=== PATIENT | male | born 1935 | race Caucasian/White ===

== ENCOUNTER → 2017-09-26 06:31 | Outpatient (CLI) | payer MEDICARE, SELFPAY ==
[2017-09-24 08:42] LABS: AST(SGOT) 31 U/L (15-37); Alanine Aminotransfer ALT/SGPT 40 U/L (16-61); Albumin, Serum 3.8 g/dL (3.2-5.0); Alkaline Phosphatase 52 U/L (45-117); Anion Gap 8 (5-15); BUN 21 mg/dL (7-18); Calcium,Total 8.7 mg/dL (8.5-10.1); Chloride 103 mmol/L (98-107); Cholesterol 139 mg/dL (200); EST Glomerular Filtration Rate 76 mL/min (>60); Est Glom Filt Rate - Afr Amer 92 mL/min (>60); Globulin 3.2 g/dL (2.2-4.2); Glucose 100 mg/dL (74-106); High Density Lipoprotein 54 mg/dL; Sodium Level 142 mmol/L (136-145); Triglycerides 133 mg/dL; Very Low Density Lipoprotein 27 mg/dL (5-40)
--- NOTE | 2017-09-26 06:31 | ECHOD_ITS ---
Reason For Study: Arrhythmia Procedure This was a 2D Doppler, Color Flow transthoracic echocardiogram. Exam performed in department. Left Ventricle Normal LV size. Moderate concentric left ventricular hypertrophy. Left ventricular systolic function is normal. The estimated ejection fraction is 60 %. Transmitral diastolic flow velocities suggest moderate (stage 2) diastolic dysfunction (pseudonormal pattern). No regional wall motion abnormalities noted. Right Ventricle Normal RV size. Normal systolic function. Atria The left atrium is moderately enlarged. The right atrium is moderately enlarged. Mitral Valve There is mild mitral annular calcification. Mild (1+) eccentric mitral valve insufficiency. Tricuspid Valve Normal tricuspid valve. Mild (1+) tricuspid valve insufficiency. Pulmonary artery systolic pressure is 39 mmHg. Aortic Valve Trisinus/trileaflet aortic valve. Mild focal aortic valve calcification. Mild (1+) eccentric aortic valve insufficiency. Pulmonic Valve Normal pulmonic valve. Great Vessels Normal aortic root. The pulmonary artery is normal size. Normal inferior vena cava. Pericardium/Pleural No pericardial effusion. MMode/2D Measurements & Calculations LVIDd: 5.2 cm IVSd: 1.5 cm LVOT diam: 2.0 cm LVIDs: 3.1 cm LVPWd: 1.3 cm LVOT area: 3.1 cm2 RVDd: 3.9 cm FS: 40.8 % Ao root diam: 4.0 cm LAV(MOD-bp): 104.2 ml LA A4 area: 28.3 cm2 LA dimension: 4.7 cm LAV(MOD-bp) Indexed: 48.4 ml/m2 LAV(MOD-sp2): 116.8 ml LAV(MOD-sp4): 92.1 ml RA A4 area: 29.6 cm2 Time Measurements MV dec time: 0.27 sec Doppler Measurements & Calculations MV E max camden: 83.8 cm/sec Lat Peak E' Camden: 5.7 cm/sec Med Peak E' Camden: 6.9 cm/sec MV A max camden: 51.7 cm/sec E/E' lat: 14.6 E/E' med: 12.1 MV E/A: 1.6 MV V2 max: 124.2 cm/sec MV P1/2t max camden: 122.3 cm/sec Ao V2 max: 228.6 cm/sec MV max P.2 mmHg MV P1/2t: 168.8 msec Ao max P.9 mmHg MV V2 mean: 49.3 cm/sec MV dec slope: 212.2 cm/sec2 Ao V2 mean: 129.1 cm/sec MV mean P.2 mmHg MVA(P1/2t): 1.3 cm2 Ao mean P.0 mmHg MV V2 VTI: 56.0 cm Ao V2 VTI: 51.4 cm MVA(VTI): 1.6 cm2 MICHAEL(I,D): 1.7 cm2 MICHAEL(V,D): 1.5 cm2 AI max camden: 362.4 cm/sec LV V1 max: 112.2 cm/sec SV(LVOT): 88.0 ml AI max P.5 mmHg LV V1 max P.0 mmHg AI dec slope: 105.8 cm/sec2 LV V1 mean P.4 mmHg AI P1/2t: 1003 msec LV V1 mean: 71.4 cm/sec LV V1 VTI: 28.8 cm PA V2 max: 75.1 cm/sec TR max camden: 292.3 cm/sec TR max P.2 mmHg Interpretation Summary Normal LV size. Moderate concentric left ventricular hypertrophy. Left ventricular systolic function is normal. The estimated ejection fraction is 60 %. Transmitral diastolic flow velocities suggest moderate (stage 2) diastolic dysfunction (pseudonormal pattern). Pulmonary artery systolic pressure is 39 mmHg. Ordering Physician: Dionisio Hutchison Referring Physician: Dionisio Hutchison Performed By: Calixto Holly RCS
--- NOTE | 2017-09-26 09:04 | STRESSREP_ITS ---
Stress Test Report Exercise myocardial perfusion stress test. 82-year-old man with a history of symptomatic bradycardia. Stress protocol: Resting EKG demonstrates sinus bradycardia with a rate of 44 bpm normal intervals and noted resting blood pressures 122/78 mmHg. The patient exercised according to regular Manny protocol for a total duration of 9 minutes. The maximum heart rate attained was 131 bpm which was 93% of maximum predicted heart rate the maximum workload was 10.1 metabolic equivalents. At rest there were no ST or T-wave changes noted suggest ischemia peak exercise no ST or T- wave changes were noted suggest ischemia resting blood pressures 122/78 with a peak blood pressure 152/80 mmHg. No clinical angina was noted the test was terminated due to leg fatigue. Myocardial perfusion protocol. 14.6 mCi of technetium 99m sestamibi was injected at rest. The patient exercised according to regular Manny protocol for 9 minutes attaining 93% of maximum predicted heart rate and a workload of 10.1 metabolic equivalents. At peak exercise 44.1 mCi of technetium 99m sestamibi was injected stress images were obtained stress and rest images were reconstructed and compared in the short axis vertical long and horizontal long axis. Gated images were also obtained Perfusion SPECT analysis: Review of the stress images demonstrate normal uptake of tracer noted in all areas of myocardium except for small portion of the anterior apical wall. This is present on the stress and rest images to a similar extent it may represent prior infarct or apical thinning. The latter is more likely. Gated SPECT analysis: The gated ejection fraction is noted to be 59%. Conclusion: Normal exercise myocardial perfusion stress test at a high workload. Preserved ejection fraction. Excellent functional aerobic capacity. Excellent chronotropic response to exercise.
== END ==
PROVIDERS: Family Provider Family Medicine; PCP Family Medicine; Visit Provider Internal Medicine Cardiovascular Disease
DX: I25.10 Atherosclerotic heart disease of native coronary artery without angina pectoris (principal); I10 Essential (primary) hypertension; E78.5 Hyperlipidemia, unspecified; R00.1 Bradycardia, unspecified
CPT/HCPCS: 36415; 78452; 80048; 80061; 80076; 93017; 93306; A9500; A4216

== ENCOUNTER → 2019-09-12 10:37 | Outpatient (CLI) | payer MEDICARE, SELFPAY ==
[2019-09-04 10:27] VITALS: BMI 28.5
== END ==
PROVIDERS: PCP Family Medicine; Referring Provider Internal Medicine Cardiovascular Disease; Visit Provider Internal Medicine Cardiovascular Disease
DX: I48.0 Paroxysmal atrial fibrillation (principal)
CPT/HCPCS: 93225; 93226

== ENCOUNTER → 2021-09-06 | Outpatient (CLI) | payer MEDICARE, SELFPAY ==
[2021-09-06 11:42] LABS: AST(SGOT) 22 U/L (15-37); Alanine Aminotransfer ALT/SGPT 22 U/L (16-61); Albumin, Serum 4.1 g/dL (3.2-5.0); Alkaline Phosphatase 48 U/L (45-117); Cholesterol 170 mg/dL (200); Globulin 3.4 g/dL (2.2-4.2); High Density Lipoprotein 53 mg/dL; Protein, Total 7.5 g/dL (6.4-8.2); Triglycerides 108 mg/dL; Very Low Density Lipoprotein 22 mg/dL (5-40)
== END | disposition home or self-care (01) ==
LOC: LAB 10:06
PROVIDERS: PCP Family Medicine; Referring Provider Internal Medicine Cardiovascular Disease; Visit Provider Internal Medicine Cardiovascular Disease
DX: E78.00 Pure hypercholesterolemia, unspecified (principal)
CPT/HCPCS: 36415; 80061; 80076

== ENCOUNTER → 2022-07-06 | Outpatient (CLI) | payer MEDICARE, SELFPAY | END | disposition home or self-care (01) | LOC: PSN 09:22 | PROVIDERS: PCP Family Medicine; Referring Provider Physician Assistant Medical; Visit Provider Physician Assistant Medical | DX: I48.0 Paroxysmal atrial fibrillation (principal); I10 Essential (primary) hypertension | CPT/HCPCS: 93225; 93226 ==

== ENCOUNTER 2022-09-04 09:02 | Outpatient (RCR) | payer MEDICARE, SELFPAY ==
[2022-08-30 10:40] LABS: Prothrombin Time (Protime)PT. 13.2 SECONDS (11.7-14.9)
[2022-09-04 11:06] LABS: Prothrombin Time (Protime)PT. 22.6 SECONDS (11.7-14.9)
== END 2022-09-04 11:00 | disposition home or self-care (01) ==
LOC: LAB 09:02
PROVIDERS: PCP Family Medicine; Referring Provider Physician Assistant Medical; Visit Provider Physician Assistant Medical
DX: Z79.01 Long term (current) use of anticoagulants (principal); I48.0 Paroxysmal atrial fibrillation
CPT/HCPCS: 36415; 85610

== ENCOUNTER 2022-10-09 09:11 | Outpatient (RCR) | payer MEDICARE, SELFPAY ==
[2022-09-21 12:03] LABS: Prothrombin Time (Protime)PT. 48.4 SECONDS (11.7-14.9)
[2022-09-21 12:43] LABS: International Normalized Ratio 5.1
[2022-09-25 09:52] LABS: Absolute Lymphocyte Count 1.54 X10^3/uL (0.83-4.51); Absolute Neutrophil Count 3.1 X10^3/uL (2.0-7.7); Basophil# 0.05 X10^3/uL; Basophil% 0.9 % (0-1); Eosinophil# 0.36 X10^3/uL; Eosinophils% 6.3 % (0-5); Hematocrit 48.5 % (40-54); Hemoglobin 15.7 g/dL (13.0-16.5); Lymphocyte # 1.54 X10^3/ul (0.83-4.51); Lymphocyte % 27.1 % (19-41); Mean Corp Hgb Conc 32.4 g/dL (32-36); Mean Corpuscular Hgb 29.2 pg (27.0-32.0); Mean Corpuscular Volume 90.1 fL (80-94); Mean Platelet Vol. 10.7 fl (6.2-12.0); Monocyte# 0.59 X10^3/uL; Monocyte% 10.4 % (0-10); NRBC Flagged by Analyzer 0 % (0-5); Neutrophil # 3.12 X10^3/uL (2.7-7.7); Neutrophil % 54.9 % (47-70); Platelet Count 223 K/mm3 (150-450); RBC Distribution Width CV 13.3 % (11.6-14.6); RBC Distribution Width SD 44.5 fl (35.1-43.9); Red Blood Count 5.38 M/mm3 (4.6-6.2); White Blood Count 5.7 K/mm3 (4.4-11.0)
[2022-09-25 09:59] LABS: International Normalized Ratio 1.5; Prothrombin Time (Protime)PT. 18.3 SECONDS (11.7-14.9)
[2022-09-25 10:38] LABS: Anion Gap 5 (5-15); BUN 25 mg/dL (7-18); BUN/Creat Ratio 25.6 RATIO (10-20); Calcium,Total 9.2 mg/dL (8.5-10.1); Chloride 102 mmol/L (98-107); Creatinine, Serum 0.98 mg/dL (0.70-1.30); EST Glomerular Filtration Rate 78 mL/min (>60); Est Glom Filt Rate - Afr Amer 94 mL/min (>60); Glucose 94 mg/dL (74-106); Magnesium 2.3 mg/dL (1.6-2.6); Potassium 3.9 mmol/L (3.5-5.1); Sodium Level 137 mmol/L (136-145); Thyroid Stim Hormone (TSH) 3.86 uIU/mL (0.358-3.74)
[2022-10-02 12:02] LABS: International Normalized Ratio 1.6; Prothrombin Time (Protime)PT. 19.4 SECONDS (11.7-14.9)
[2022-10-09 10:27] LABS: International Normalized Ratio 1.6; Prothrombin Time (Protime)PT. 19.6 SECONDS (11.7-14.9)
== END 2022-10-09 18:00 | disposition home or self-care (01) ==
LOC: LAB 09:11
PROVIDERS: PCP Family Medicine; Referring Provider Physician Assistant Medical; Visit Provider Physician Assistant Medical
DX: Z79.01 Long term (current) use of anticoagulants (principal); I48.0 Paroxysmal atrial fibrillation
CPT/HCPCS: 36415; 80048; 83735; 84443; 85025; 85610

== ENCOUNTER 2022-11-06 09:21 | Outpatient (RCR) | payer MEDICARE, SELFPAY ==
[2022-10-16 09:23] LABS: International Normalized Ratio 1.5; Prothrombin Time (Protime)PT. 18.5 SECONDS (11.7-14.9)
[2022-10-23 11:10] LABS: International Normalized Ratio 2.3; Prothrombin Time (Protime)PT. 25.5 SECONDS (11.7-14.9)
[2022-11-06 10:18] LABS: International Normalized Ratio 3.2; Prothrombin Time (Protime)PT. 33.4 SECONDS (11.7-14.9)
[2022-11-06 10:47] LABS: AST(SGOT) 24 U/L (15-37); Alanine Aminotransfer ALT/SGPT 22 U/L (16-61); Albumin, Serum 3.8 g/dL (3.2-5.0); Alkaline Phosphatase 40 U/L (45-117); Bilirubin, Direct 0.23 mg/dL (0.00-0.30); Cholesterol 188 mg/dL (200); Globulin 3.8 g/dL (2.2-4.2); High Density Lipoprotein 58 mg/dL; Protein, Total 7.6 g/dL (6.4-8.2); Triglycerides 122 mg/dL; Very Low Density Lipoprotein 24 mg/dL (5-40)
== END 2022-11-13 18:00 | disposition home or self-care (01) ==
LOC: LAB 09:21
PROVIDERS: Internal Medicine Cardiovascular Disease; PCP Family Medicine; Referring Provider Physician Assistant Medical; Visit Provider Physician Assistant Medical
DX: Z79.1 Long term (current) use of non-steroidal anti-inflammatories (NSAID) (principal); I48.0 Paroxysmal atrial fibrillation
CPT/HCPCS: 36415; 80061; 80076; 85610

== ENCOUNTER 2022-11-20 08:52 | Outpatient (RCR) | payer MEDICARE, SELFPAY ==
[2022-11-20 09:30] LABS: International Normalized Ratio 3.5; Prothrombin Time (Protime)PT. 35.5 SECONDS (11.7-14.9)
== END 2022-11-20 18:00 | disposition home or self-care (01) ==
LOC: LAB 08:52
PROVIDERS: PCP Family Medicine; Referring Provider Physician Assistant Medical; Visit Provider Physician Assistant Medical
DX: Z79.01 Long term (current) use of anticoagulants (principal); I48.0 Paroxysmal atrial fibrillation
CPT/HCPCS: 36415; 85610

== ENCOUNTER → 2022-11-27 | Outpatient (CLI) | payer MEDICARE, SELFPAY | END | disposition home or self-care (01) | LOC: LAB 13:16 | PROVIDERS: PCP Family Medicine; Referring Provider Urology; Visit Provider Urology | DX: R97.20 Elevated prostate specific antigen [PSA] (principal) | CPT/HCPCS: 36415; 84153 ==

== ENCOUNTER → 2023-01-08 | Outpatient (CLI) | payer MEDICARE, SELFPAY ==
[2023-01-08 11:41] LABS: PSA,Total- Diagnostic 7.86 ng/mL (0.0-4.0)
== END | disposition home or self-care (01) ==
LOC: LAB 09:28
PROVIDERS: PCP Family Medicine; Referring Provider Urology; Visit Provider Urology
DX: R97.20 Elevated prostate specific antigen [PSA] (principal)
CPT/HCPCS: 36415; 84153

== ENCOUNTER → 2023-05-11 | Outpatient (CLI) | payer MEDICARE, SELFPAY ==
--- OUTSIDE RECORDS SUMMARY | 2023-05-11 09:04 | XMS RPT_ITS | CCD ---
Author Name Unknown Address [facility] [address] [place] [address] Organization [facility] Care Team Providers Care Gang Pusher Name Role Phone DARIN MIKE DO Primary Care Physician DARIN MIKE DO Primary Care Unavailable DARIN MIKE DO Attending Unavailable ALEJANDRO PANIAGUA, FRANKLIN Kong Attending Unavail able DARIN MIKE DO Primary Care Unavailable DARIN MIKE DO Attending Unavailable DARIN MIKE DO Primary Care Unavailable DARIN MIKE DO Attending Unavailable DARIN MIKE DO Primary Care Unavailable DARIN MIKE DO Attending Unavailable DARIN MIKE DO Primary Care Unavailable Allergies Allergy Classification Reported Allergen(s) Allergy Type Date of Onset Reaction(s) Facility (6 sources) Niacin; Translations: [niacin] Drug Allergy Abdominal pain [facility] Medications Current Medications Medication Drug Class(es) Dates Sig (Normalized) Sig (Original) amLODIPine 10 mg oral tablet (6 sources) Dihydropyridine Calcium Channel Alondra Start: 01-30-2019 amLODIPine 10 mg oral tablet Dose : 10 mg = 1 tab(s), Oral, qDay, # 30 tab(s), 0 Refill(s) Start Date: 01/30/19 Status: Ordered apixaban 5 mg oral tablet (1 source) Factor Xa Inhibitor Start: 03-15-2023 Eliquis 5 mg oral tablet Dose : 5 mg = 1 tab(s), 0 Refill(s), 94 Start Date: 03/15/23 Status: Ordered aspirin 81 mg delayed release oral tablet (6 sources) Platelet Aggregation Inhibitor, Nonsteroidal Anti-inflammatory Drug Start: 01-30-2019 aspirin 81 mg oral delayed release tablet Dose : 81 mg = 1 tab(s), Oral, qDay, 0 Refill(s) Start Date: 01/30/19 Status: Ordered Problems Problem Classification Problem Date Documented Date Episodic/Chronic Cardiac dysrhythmias (1 source) Paroxysmal atrial fibrillation 03-15-2023 Chronic Disorders of lipid metabolism (6 sources) Hyperlipidemia 01-30-2019 Chronic Essential hypertension (9 sources) Hypertensive disorder; Translations: [Essential hypertension] Onset: 03-15-2023 01-30-2019 Chronic Heart valve disorders (6 sources) Aortic valve disorder 01-30-2019 Chronic Hyperplasia of prostate (6 sources) Benign prostatic hyperplasia 01-30-2019 Chronic Immunizations and screening for infectious disease (5 sources) Viral screening status; Translations: [Encounter for screening for other viral diseases] Episodic Osteoarthritis (6 sources) Arthritis 08-01-2019 Chronic Other nutritional; endocrine; and metabolic disorders (4 sources) Overweight in adulthood with body mass index of 25 or more but less than 30 03-22-2022 Episodic Other screening for suspected conditions (not mental disorders or infectious disease) (1 source) Diabetic monitoring status; Translations: [Encounter for screening for diabetes mellitus] Episodic Other skin disorders (6 sources) Lesion of skin of face 02-09-2021 Episodic Other skin disorders (6 sources) Multiple actinic keratoses 01-30-2019 Episodic Other upper respiratory disease (1 source) Bleeding from nose; Translations: [Epistaxis] Onset: 12-01-2022 Episodic Residual codes; unclassified (6 sources) Needs influenza immunization 02-08-2021 Episodic Residual codes; unclassified (6 sources) Requires vaccination 01-30-2019 Episodic Thyroid disorders (1 source) Hypothyroidism 03-15-2023 Chronic Unclassified (20 sources) Patient encounter status 01-30-2019 Unclassified (4 sources) Never used tobacco 03-22-2022 Unclassified (1 source) Drug therapy finding 03-15-2023 Results Test Name Value Interpretation Reference Range Facil ity Vital Signs Date Time Vital Sign Value Performing Clinician Carlie acharya 12-01-2022 22:43-0400 Diastolic Blood Pressure Non-Invasive 91 1 FRANKLIN ALLEN MD [facility] 12-01-2022 22:43-0400 Heart rate 97 /min FRANKLIN LYREN-SONDLES MD [facility] 12-01-2022 22:43-0400 Respiratory rate 18 /min FRANKLIN ALLEN MD [facility] 12-01-2022 22:43-0400 Systolic Blood Pressure Non-Invasive 148 1 FRANKLIN ALLEN MD [facility] 12-01-2022 21:29-0400 Blood Pressure Cuff Size FRANKLIN ALLEN MD [facility] 12-01-2022 21:29-0400 Blood Pressure Location FRANKLIN ALLEN MD [facility] 12-01-2022 21:29-0400 Blood Pressure Method FRANKLIN ALLEN MD [facility] 12-01-2022 21:29-0400 Body height 180.3 cm FRANKLIN ALLEN MD [facility] 12-01-2022 21:29-0400 Body temperature 97.52 [degF] FRANKLIN ALLEN MD [facility] 12-01-2022 21:29-0400 Body weight 94 kg FRANKLIN ALLEN MD [facility] 12-01-2022 21:29-0400 Diastolic Blood Pressure Non-Invasive 104 1 FRANKLIN ALLEN MD [facility] 12-01-2022 21:29-0400 Heart rate 108 /min FRANKLIN ALLEN MD [facility] 12-01-2022 21:29-0400 Reason For Taking VItal Signs FRANKLIN ALLEN MD [facility] 12-01-2022 21:29-0400 Respiratory rate 20 /min FRANKLIN ALLEN MD [facility] 12-01-2022 21:29-0400 Systolic Blood Pressure Non-Invasive 152 1 FRANKLIN ALLEN MD [facility] Encounters Encounter Date Encounter Type Care Provider Facility Start: 03-15-2023 End: 03-16-2023 ambulatory DARIN MIKE DO Facility:B Start: 03-15-2023 End: 03-20-2023 ambulatory DARIN MIKE DO Facility:[facility] Start: 03-15-2023 End: 03-19-2023 Outreach Lab DARIN MIKE DO [facility] Start: 12-01-2022 End: 12-02-2022 Emergency department patient visit FRANKLIN ALLEN MD Facility:B Start: 12-01-2022 End: 12-01-2022 Emergency department patient visit FRANKLIN ALLEN MD [facility] Start: 06-27-2022 End: 2022 ambulatory DARIN MIKE DO Facility:B Start: 06-27-2022 End: 06-27-2022 Patient encounter procedure DARIN MIKE DO [facility] Start: 03-27-2022 End: 03-28-2022 ambulatory DARIN MIKE DO Facility:[facility] Start: 03-27-2022 End: 03-27-2022 Patient encounter procedure DARIN MIKE DO [facility] Start: 03-27-2022 End: 03-27-2022 Well adult monitoring check done DARIN MIKE DO [facility] Start: 11-23-2021 End: 11-23-[address] SALOMON CUNHA MD [facility] Start: 02-10-2021 End: 02-10-2021 Patient encounter procedure DARIN Swift RASHID DO [facility] Procedures Date Procedure Procedure Detail Performing Clinician Start: 05-12-2013 Arthroplasty of knee VERÓNICA SIMS RASHID DO Immunizations Immunization Date Immunization Notes Care Provider Fa [facility] 03-15-2023 influenza, high dose seasonal, preservative-free; Translations: [Fluad Quadrivalent PF ] DARIN MIKE DO [facility] 03-22-2022 influenza, high dose seasonal, preservative-free DARIN MIKE DO [facility] 03-28-2021 SARS-CoV-2 (COVID-19 ) mRNA-[id number] vaccine DARIN MIKE [facility] 02-09-2021 influenza, high dose seasonal, preservative-free; Translations: [Fluad Quadrivalent PF ] DARIN MIKE DO [facility] 06-16-2020 COVID-19, mRNA, LNP- S, PF, 100 mcg/ 0.5 mL dose; Translations: [Moderna COVID-19 Vaccine] DARIN MIKE DO [facility] 05-19-2020 SARS-CoV-2 (COVID-19 ) mRNA-[id number] vaccine DARIN MIKE DO [facility] 03-02-2020 influenza, injectabl e, quadrivalent, preservative free; Translations: [Fluarix PF Quadrivalent ] DARIN RASHID DO [facility] 01-30-2019 pneumococcal conjuga te vaccine, 13 valent; Translations: [Prevnar 13] DARIN RASHID DO [facility] 01-07-2019 influenza virus vacc ine, unspecified formulation DARIN RASHID DO [facility] 02-01-2018 influenza virus vacc ine, unspecified formulation DARIN RASHID DO [facility] 04-19-2017 influenza virus vacc ine, unspecified formulation DARIN MIKE DO [facility] 04-05-2016 influenza virus vacc ine, unspecified formulation DARIN RASHID DO [facility] 05-14-2015 influenza virus vacc ine, unspecified formulation DARIN RASHID DO [facility] 02-23-2014 zoster vaccine, live DARIN RASHID DO [facility] 02-09-2014 influenza virus vacc ine, unspecified formulation DARIN RASHID DO [facility] 04-13-2010 tetanus toxoid, redu anne marie diphtheria toxoid, and acellular pertussis vaccine, adsorbed DARIN RASHID DO [facility] 06-09-2003 pneumococcal polysaccharide vaccine, 23 valent DARIN RASHID DO [facility] 01-23-2000 diphtheria and tetan us toxoids, adsorbed for pediatric use DARIN RASHID DO [facility] Payers Date Payer Category Payer Private Health Insurance [id number] 1935 Unknown [id number] 1935 Unknown [id number] 1935 Unknown [id number] 1935 Unknown [id number] 1935 Unknown [id number] [id number] Social History Date Type Detail Facility Start: 01-30-2019 Never smoked t obacco (finding) [facility] Sex Assigned At Male [facility] Functional Status Date Assessment Result Facility 12-01-2022 Functional Status Independent [facility] 12-01-2022 Functional Status Independent [facility] Mental Status Date Assessment Result Facility 12-01-2022 Mental Status Orientation Oriented x 4 [facility] 12-01-2022 Mental Status [facility] Discharge instructions 12-02-2022 Note Date & Type Note Facility 12-02-2022 Hospital Discharg e instructions Patient Education 12/01/2022 22:37:39 Epistaxis (Adult) Nosebleed (Adult) Bleeding from the nose most commonly occurs because of injury or drying and cracking of the inner lining of the nose. Most nosebleeds are because of dry air or nose-picking. They can occur during a common cold or an allergy attack. They can also occur on a very hot day, or from dry air in the winter. If the bleeding site is found, it may be cauterized. This means it is treated to cause a blood clot to form. This may be done with a chemical, heat, or electricity. If the bleeding continues after the site is cauterized, or if the site cannot be found, packing may be put in your nose. This is to apply pressure and stop the bleeding. The packing may be made of gauze or sponge. A small balloon catheter is sometimes used. These must be removed by your healthcare provider. Some types of packing dissolve on their own. If you are taking blood thinning (anticoagulant) medicine, you may have a blood test. Home care If packing was put in your nose, unless told otherwise, do not pull on it or try to remove it yourself. You will be given an appointment to have it removed. You may also have been given antibiotics to prevent a sinus infection. If so, finish all of the medicine. Don't blow your nose for 12 hours after the bleeding stops. This will allow a strong blood clot to form. Don't pick your nose. This may restart bleeding. Don't drink alcohol or hot liquids for the next 2 days. Alcohol or hot liquids in your mouth can dilate blood vessels in your nose. This can cause bleeding to start again. Don't take ibuprofen, naproxen, or medicines that contain aspirin. These thin the blood and may cause your nose to bleed. You may take acetaminophen for pain, unless another pain medicine was prescribed. If the bleeding starts again, sit up and lean forward to prevent swallowing blood. Pinch your nose tightly on both sides, as shown above, for 10 to 15 minutes. Time yourself. Don t release the pressure on your nose until 10 minutes is up. If bleeding does not stop, continue to pinch your nose and call your healthcare provider or return to this facility. If you have a cold, allergies, or dry nasal membranes, lubricate the nasal passages. Apply a small amount of petroleum jelly inside the nose with a cotton swab twice a day (morning and night). Don't overheat your home. This can dry the air and make your condition worse. Put a humidifier in the room where you sleep. This will add moisture to the air. Clean the humidifier as advised by the drafter automotive design. Use a saline nasal spray to keep nasal passages moist. Don't pick your nose. Keep fingernails trimmed to decrease risk of bleeds. Don't smoke. Follow-up care Follow up with your healthcare provider, or as advised. Nasal packing should be rechecked or removed within 2 to 3 days. When to seek medical advice Call your healthcare provider right away if any of these occur. You have another nosebleed that you cannot control Dizziness, weakness, or fainting You become tired or confused Fever of 100.4 F (38 C) or higher, or as directed by your healthcare provider Headache Sinus or facial pain Shortness of breath or trouble breathing [id number] [employer]. [address] [place] [address]. All rights reserved. This information is not intended as a substitute for professional medical care. Always follow your healthcare professional's instructions. Follow Up Care 12/01/2022 21:26:18 With:DARIN MIKE DO Address: [address] [place] [address] [place] [address]- [phone] When:2-4 days [facility] Clinical Note 12-01-2022 Note Date & Type Note Facility 12-01-2022 Note Discharge Instructions Thank you for allowing [facility] to assist you with your healthcare needs. The following is important discharge information regarding your hospital visit. Diagnosis from Today's Visit Epistaxis Nosebleed What to Do Next Instructions from Your Care Team Your INR was 4.2 today. Hold your evening dose tonight and call your doctor tomorrow for advice on further dosing. No qualifying data available. Post Acute Orders No qualifying data available. You Need to Schedule the Following Appointments Follow Up with DARIN MIKE DO When Within 2-4 days Where: 0 [facility] [place] [address]- [phone] Allergies niacin (Abdominal pain) Medications Please ask your primary doctor or pharmacist before taking any other medication not listed, including over the counter drugs, herbal medications, vitamins and or supplements as they may interact with your home medications. What How Much When Why Instructions Last Dose Unchanged amLODIPine (amLODIPine 10 mg oral tablet) 1 tab(s) by mouth Once a day Unchanged aspirin (aspirin 81 mg oral delayed release tablet) 1 tab(s) by mouth Once a day Unchanged herbal/ nutritional product (saw palmetto oral capsule) 1 cap by mouth Every day Unchanged hydroCHLOROthiazide (hydroCHLOROthiazide 25 mg oral tablet) 1 tab(s) by mouth Once a day Unchanged latanoprost ophthalmic (latanoprost 0.005% ophthalmic solution) 1 Drops Right eye Daily at bedtime Unchanged levothyroxine (Synthroid 25 mcg (0.025 mg) oral tablet) 1 tab(s) by mouth Once a day Hypothyroidism Unchanged losartan (losartan 100 mg oral tablet) 1 tab(s) by mouth Once a day Unchanged multivitamin (Multivitamin) 1 tab(s) by mouth Every day Unchanged rosuvastatin (rosuvastatin 10 mg oral tablet) 1 tab(s) by mouth Once a day Unchanged sildenafil (sildenafil 50 mg oral tablet) 1 tab(s) by mouth Once a day Unchanged tamsulosin (tamsulosin 0.4 mg oral capsule) 1 cap by mouth Once a day Please take this list to your next doctor s visit. Bring all medications you take, including over the counter medications, herbals and other supplements with you to your doctor s visit. Patients and families are reminded to discard old lists and to update any records with all medication providers or retail pharmacies. Education Materials Nosebleed (Adult) Bleeding from the nose most commonly occurs because of injury or drying and cracking of the inner lining of the nose. Most nosebleeds are because of dry air or nose-picking. They can occur during a common cold or an allergy attack. They can also occur on a very hot day, or from dry air in the winter. If the bleeding site is found, it may be cauterized. This means it is treated to cause a blood clot to form. This may be done with a chemical, heat, or electricity. If the bleeding continues after the site is cauterized, or if the site cannot be found, packing may be put in your nose. This is to apply pressure and stop the bleeding. The packing may be made of gauze or sponge. A small balloon catheter is sometimes used. These must be removed by your healthcare provider. Some types of packing dissolve on their own. If you are taking blood thinning (anticoagulant) medicine, you may have a blood test. Home care If packing was put in your nose, unless told otherwise, do not pull on it or try to remove it yourself. You will be given an appointment to have it removed. You may also have been given antibiotics to prevent a sinus infection. If so, finish all of the medicine. Don't blow your nose for 12 hours after the bleeding stops. This will allow a strong blood clot to form. Don't pick your nose. This may restart bleeding. Don't drink alcohol or hot liquids for the next 2 days. Alcohol or hot liquids in your mouth can dilate blood vessels in your nose. This can cause bleeding to start again. Don't take ibuprofen, naproxen, or medicines that contain aspirin. These thin the blood and may cause your nose to bleed. You may take acetaminophen for pain, unless another pain medicine was prescribed. If the bleeding starts again, sit up and lean forward to prevent swallowing blood. Pinch your nose tightly on both sides, as shown above, for 10 to 15 minutes. Time yourself. Don t release the pressure on your nose until 10 minutes is up. If bleeding does not stop, continue to pinch your nose and call your healthcare provider or return to this facility. If you have a cold, allergies, or dry nasal membranes, lubricate the nasal passages. Apply a small amount of petroleum jelly inside the nose with a cotton swab twice a day (morning and night). Don't overheat your home. This can dry the air and make your condition worse. Put a humidifier in the room where you sleep. This will add moisture to the air. Clean the humidifier as advised by the [employer]. Use a saline nasal spray to keep nasal passages moist. Don't pick your nose. Keep fingernails trimmed to decrease risk of bleeds. Don't smoke. Follow-up care Follow up with your healthcare provider, or as advised. Nasal packing should be rechecked or removed within 2 to 3 days. When to seek medical advice Call your healthcare provider right away if any of these occur. You have another nosebleed that you cannot control Dizziness, weakness, or fainting You become tired or confused Fever of 100.4 F (38 C) or higher, or as directed by your healthcare provider Headache Sinus or facial pain Shortness of breath or trouble breathing [id number] [employer]. [address] [place] [address]. All rights reserved. This information is not intended as a substitute for professional medical care. Always follow your healthcare professional's instructions. Additional Information VACCINATE! IT SAVES LIVES! Members of the community who have not yet received the COVID-19 vaccine and would like to receive it can visit one of [facility] vaccine clinics. There are many vaccine clinic locations within the [facility]. For locations and available times, please visit www.gettheshot.coronavirus.[place].gov/. It is important to note that some COVID mobile vaccine clinics are held outdoors and may be canceled in rainy or stormy conditions. To learn more about pediatric vaccinations (ages 5-11), we invite you to visit the [facility] webpage. https://www.[email or web address].org/pages/[email or web address]-Qcztj-Mrsamibuxzb-Znzrubeqhw-Gqohs-Gid stions.html To learn more about the COVID-19 vaccine, we invite you to visit the CDC website for a list of frequently asked questions. https://www.cdc.gov/coronavirus/2019-nco v/vaccines/faq.html [facility] Patient Portal Access Instructions: Stay connected with your healthcare team and access your personal medical information anytime with the [facility] Patient Portal. If you would like a full copy of your medical records please contact the [facility] Medical Records Department Sunday through Sunday between 8a.m. and 4:30p.m. Please follow the directions below to access the portal: 1.Access the email account you provided upon registration to the [facility].2.Look for an invitation email from [facility].3.Open the email and access the invitation link: Accept Invitation to [facility].Fill in the required vivas to create your account. Sign into www.[employer] with your username and password that you created in the above steps to stay up to date. You can then view a summary of results, a summary of your visits, and the ability to download your summaries to your computer or send the information securely to a physician. Remember that your healthcare information is confidential, so carefully consider who you will allow to register on the [facility] Patient Portal for access to your information. You can also access the [facility] Patient Portal on the [employer]. Simply click on Health Records under Health Data and then click on the [employer] logo. HOW TO SAFELY DISPOSE OF PRESCRIPTION MEDICATIONS Please use one of the following methods to safely dispose of your unused medications. 1.Use a drug disposal kit: the drug disposal pouch allows you to safely discard your old and unused drugs. Ask your nurse to give you one when you are discharged.2.Visit a local take-back location: Many local pharmacies and police departments have programs that collect old and unwanted prescription drugs. Call your local pharmacy or go to http://FraudMet[employer].LightPole/0E4Vq0x to find one close to you.3.Make use of household items: Use cat litter or old coffee grounds to dispose medications if other options are not available. Mix your drugs with these household products, seal them in an airtight container and throw it into the garbage. Call [facility]: [phone] to be sure your drugs can be disposed of in this way. Some medicines may require a different approach.4.Never flush your medications down the toilet. IF YOU HAVE BEEN PRESCRIBED AN OPIOIDS FOR PAIN If you have been prescribed an opioid (such as hydrocodone, oxycodone or morphine), it is critical to understand the possible side effects and risks of opioid pain medications. Even when taken as directed, opioids can have several side effects including: Tolerance, meaning you might need to take more of a medication for the same pain relief. Nausea, vomiting and/or constipation. Sleepiness, dizziness, dry mouth, confusion, depression or itching. Physical dependence, meaning you have withdrawal symptoms when a medication is stopped ? this can develop within a few days. KNOW YOUR RESPONSIBILITIES It is important to know exactly how much and how often to take the opioid pain medications you are prescribed. Never take opioids in higher amounts or more often than prescribed. Do not combine opioids with alcohol or other drugs that cause drowsiness, such as benzodiazepines, also known as benzos, including diazepam and alprazolam, muscle relaxants or sleep aids. Never sell or share prescription opioids. This is illegal. Store opioids in a secure place and out of reach of others (including children, family, friends and visitors). The last page(s) of this document has been signed and retained as a CHART COPY Signatures Patient Education Materials Epistaxis (Adult) Medication Leaflets My discharge plan and instructions have been reviewed and explained to me and I,EDMUNDO BROWN understand my current condition and have read and understand these discharge instructions. I have received a written copy of the plan/instructions. If I have questions, I am aware that I should contact my doctor. 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 Appointment Type: Wellness Medicare [facility] Evaluation + Plan note Laboratory Note Date & Type Note Facility Evaluation + Plan note Future Appointments Appointment Date:02/09/2022 10:00:00 AM Scheduled Provider:DARIN MIKE DO Location:[facility] Appointment Type:PC Wellness Medicare Future Scheduled TestsProstate Specific Antigen 02/23/21Thyroid Stimulating Hormone 06/03/21Thyroid Stimulating Hormone 02/23/21Free T4 02/23/21Free T3 02/23/21 [facility] Evaluation + Plan note Note Date & Type Note Facility Evaluation + Plan note Future Appointments Appointment Date:09/13/2023 10:00:00 AM Scheduled Provider:DARIN MIKE DO Location:[facility] Appointment Type:PC Wellness Medicare [facility] Hospital course Narrative Note Date & Type Note Facility Hospital course Narrative No data available for this section [facility] Hospital Discharge instructions Note Date & Type Note Facility Hospital Discharge instructions No data available for this section [facility] Progress note Note Date & Type Note Facility Progress note No data available for this section [facility] Summary Purpose Family History No Family History Records Found Advance Directives No Advanced Directives Records Found Additional Source Comments Care Team (unrecognized sect ion and content) Care Team Personnel Name: DARIN MIKE DO Position: P4 Physician - Primary Care Med Service: Active Provider Member Role: Primary Care Physician Address: Address: [address] [place] [id number] [place] [address] Care Team Related Persons Name: RUEL BROWN Address: Home [address] [place], [place] [id number] Care Team Personnel Name: DARIN MIKE DO Position: P4 Physician - Primary Care Member Role: Primary Care Physician Address: Address: [address] [place] [id number] Name: JOVITA MILLAN MD Member Role: Insemination Worker Address: Address: [address] [place] [phone] Name: NKECHI JACKSON MD Member Role: Fiber Optic Assembler Address: Address: [address] [facility] [address] [place] [address]- [place] Name: SALOMON CUNHA MD Position: P3 Physician - Urologist Member Role: Urologist Address: Address: [address] [facility] [address] [place] [address]- Care Team Related Persons Name: RUEL BROWN Address: Home [address] [place], [place] [id number] Patient Care team informatio n (unrecognized section and content) Care Team Personnel Name: DARIN MIKE DO Position: P4 Physician - Primary Care Member Role: Primary Care Physician Address: Address: [address] [place] [address]- Name: JOVITA MILLAN MD Member Role: Insemination Worker Address: Address: [address] [place] [phone] [place] Name: NKECHI JACKSON MD Member Role: Fiber Optic Assembler Address: Address: [address] [place] [address]- [place] Name: SALOMON CUNHA MD Position: P3 Physician - Urologist Member Role: Urologist Address: Address: [address] [address]- Care Team Related Persons Name: RUEL BROWN Address: Home [address] [place] [id number] Care Team Personnel Name: DARIN MIKE DO Position: P4 Physician - Primary Care Member Role: Primary Care Physician Address: Address: [address] [place] [address]- Name: JOVITA MILLAN MD Member Role: Insemination Worker Address: Address: [address] [place] [phone] [place] Name: NKECHI JACKSON MD Member Role: Fiber Optic Assembler Address: Address: [address] [address]- [place] Name: SALOMON CUNHA MD Position: P3 Physician - Urologist Member Role: Urologist Address: Address: [address] [address]- [place] Name: FRANKLIN ALLEN MD Position: ED Physician Member Role: Attending Physician Address: Address: [facility] [address] [place] [address]- Care Team Related Persons Name: RUEL BROWN Address: Home [address] [place], [place] [phone] Care Team Personnel Name: DARIN MIKE DO Position: P4 Physician - Primary Care Member Role: Primary Care Physician Address: Address: [address] [facility] [place] [address]- Name: JOVITA MILLAN MD Member Role: Insemination Worker Address: Address: [address] [place] [phone] Name: NKECHI JACKSON MD Member Role: Fiber Optic Assembler Address: Address: [address] [facility] [address] [place] [address]- Name: SALOMON CUNHA MD Position: P3 Physician - Urologist Member Role: Urologist Address: Address: [address] [place] [address] [address] [place] [address]- Care Team Related Persons Name: RUEL BROWN Address: Home [address] [place] [address] [address] [place] [id number] (unrecognized sect ion and content) No Status Records Found INFORMATION SOURCE (unrecogn ized section and content) FOR RECORDS PERTAINING TO PATIENTS WHO ARE OR HAVE BEEN ENROLLED IN A CHEMICAL DEPENDENCY/SUBSTANCEABUSE PROGRAM, SOME INFORMATION MAY BE OMITTED. This clinical summary was aggregated from multiple sources. Caution should be exercised in using it in the provision of clinical care. This summary normalizes information from multiple sources, and as a consequence, information in this document may materially change the coding, format and clinical context of patient data. In addition, data may be omitted in some cases. CLINICAL DECISIONS SHOULD BE BASED ON THE PRIMARY CLINICAL RECORDS. [facility] [employer] provides no warranty or guarantee of the accuracy or completeness of information in this document.
[2023-05-11 11:33] LABS: AST(SGOT) 26 U/L (15-37); Alanine Aminotransfer ALT/SGPT 28 U/L (16-61); Albumin, Serum 3.7 g/dL (3.2-5.0); Alkaline Phosphatase 47 U/L (45-117); Bilirubin, Direct 0.26 mg/dL (0.00-0.30); Cholesterol 179 mg/dL (200); Globulin 3.5 g/dL (2.2-4.2); High Density Lipoprotein 49 mg/dL; Protein, Total 7.2 g/dL (6.4-8.2); Triglycerides 156 mg/dL; Very Low Density Lipoprotein 31 mg/dL (5-40)
== END | disposition home or self-care (01) ==
PROVIDERS: PCP Family Medicine; Referring Provider Physician Assistant Medical; Visit Provider Physician Assistant Medical
DX: E78.00 Pure hypercholesterolemia, unspecified (principal)
CPT/HCPCS: 36415; 80061; 80076

== ENCOUNTER → 2023-07-09 | Outpatient (CLI) | payer MEDICARE, SELFPAY ==
[2023-07-10 12:09] LABS: PSA, Free 2.25 ng/mL; PSA, Free % 36.8 % (.)
== END | disposition home or self-care (01) ==
LOC: LAB 09:02
PROVIDERS: PCP Family Medicine; Referring Provider Urology; Visit Provider Urology
DX: R97.20 Elevated prostate specific antigen [PSA] (principal)
CPT/HCPCS: 36415; 84153; 84154

== ENCOUNTER 2024-01-29 13:52 | Observation (INO) | payer MEDICARE, SELFPAY ==
--- NOTE | 2024-01-23 12:30 | RAD_ITS ---
STUDY: X-RAY CHEST REASON FOR EXAM: Male, 88 years old. Pacemaker insertion TECHNIQUE: PA and lateral COMPARISON: None. FINDINGS: The lungs are clear and expanded. There is no demonstrated pleural abnormality. Normal size heart. Normal mediastinum and tennille. Normal visualized pulmonary arteries. Tortuous mildly calcified aortic arch and descending thoracic aorta. Dorsal spine and trace degenerative changes. Normal visualized ribs, clavicles, and shoulders. There is no demonstrated abnormality of the visualized soft tissue structures of the upper abdomen. RAD/Chest PA and Lateral IMPRESSION: No acute cardiopulmonary pathology. Electronically Signed: Manuel Lomeli MD at 17:10 EDT ,
[2024-01-23 14:12] LABS: Bacteria 0 SEEN /hpf (None Seen); Mucous, Urine 0 SEEN /hpf (<or=2+); Red Blood Cells-Urine 0 SEEN /hpf (0-5); Squamous Epithelial Cells - UA 0 SEEN /hpf (0-5)
[2024-01-23 15:17] LABS: Hematocrit 49.5 % (40-54); Hemoglobin 15.8 g/dL (13.0-16.5); Mean Corp Hgb Conc 31.9 g/dL (32-36); Mean Corpuscular Hgb 28.6 pg (27.0-32.0); Mean Corpuscular Volume 89.7 fL (80-94); Mean Platelet Vol. 11.3 fl (6.2-12.0); Platelet Count 200 K/mm3 (150-450); RBC Distribution Width CV 12.7 % (11.6-14.6); RBC Distribution Width SD 41.9 fl (35.1-43.9); Red Blood Count 5.52 M/mm3 (4.6-6.2); White Blood Count 7.2 K/mm3 (4.4-11.0)
[2024-01-23 15:20] LABS: Color, Urine Straw (Yellow); Glucose, Dipstick Normal (Normal); Ketone-Dipstick Negative (Negative); Leukocyte Esterase-Dipstick 25 /ul (Negative); Nitrite-Dipstick Negative (Negative); Occult Blood-Urine Negative /ul (Negative); Protein-Dipstick Negative (Negative); Urine Bilirubin Dipstick Negative (Negative); Urine Clarity Clear (Clear); Urine Urobilinogen Normal (Normal); Urine pH 6.5 (5.0 - 8.0)
[2024-01-23 15:28] LABS: White Blood Cells 0-5 SEEN /hpf (0-5)
[2024-01-23 16:18] LABS: Anion Gap 8 (5-15); BUN 23 mg/dL (7-18); BUN/Creat Ratio 22.3 RATIO (10-20); Calcium,Total 9.7 mg/dL (8.5-10.1); Chloride 102 mmol/L (98-107); Creatinine, Serum 1.03 mg/dL (0.70-1.30); EST Glomerular Filtration Rate 73 mL/min (>60); Est Glom Filt Rate - Afr Amer 88 mL/min (>60); Glucose 102 mg/dL (74-106); Potassium 4.3 mmol/L (3.5-5.1); Sodium Level 138 mmol/L (136-145)
[2024-01-23 16:29] LABS: AST(SGOT) 27 U/L (15-37); Alanine Aminotransfer ALT/SGPT 29 U/L (16-61); Albumin, Serum 4.2 g/dL (3.2-5.0); Alkaline Phosphatase 45 U/L (45-117); Bilirubin, Direct 0.25 mg/dL (0.00-0.30); Cholesterol 183 mg/dL (200); Globulin 3.3 g/dL (2.2-4.2); High Density Lipoprotein 57 mg/dL; Protein, Total 7.5 g/dL (6.4-8.2); Triglycerides 130 mg/dL; Very Low Density Lipoprotein 26 mg/dL (5-40)
[2024-01-25 07:24] VITALS: BMI 28.8
[2024-01-29] VITALS (12 sets, daily range): BP systolic 121–148; BP diastolic 80–97; PULSE 60–68; RESP 16–18; TEMP 36.2; O2SAT 94–96; BMI 28.8
[2024-01-30] MEDS: Acetaminophen 325 MG Tablet PO ×2 (00:02→06:02)
[2024-01-30 00:05] VITALS: BP 138/80; PULSE 62; RESP 18; TEMP 36.3; O2SAT 95
--- NOTE | 2024-01-30 05:55 | RAD_ITS ---
STUDY: X-RAY CHEST REASON FOR EXAM: Male, 88 years old patient is status post permanent ICD/Pacemaker. TECHNIQUE: A PA radiograph of the chest is obtained in inspiration and expiration. A lateral radiograph is also submitted for interpretation. COMPARISON: Radiograph of the chest dated January 23, 2024. FINDINGS: Patient has left-sided intracardiac pacemaker. The leads appear to have normal positioning. Cardiac monitoring leads are present. There are prominent bronchovascular markings in both lungs. There is no demonstrated pleural abnormality. There is mild cardiac enlargement. Normal mediastinum and tennille. Normal visualized pulmonary arteries. There is atherosclerotic calcification of the aortic arch with tortuosity. There are diffuse degenerative changes of the visualized thoracic spine. Normal visualized ribs, clavicles, and shoulders. There is no demonstrated abnormality of the visualized soft tissue structures of the upper abdomen. RAD/Chest 3 View IMPRESSION: 1. Appropriate positioning of a left-sided pacemaker without obvious pneumothorax. 2. Cardiomegaly and mild pulmonary vascular congestion. Electronically Signed: Kaitlynn Dodson MD at 5:50 EDT ,
[2024-01-30 06:05] VITALS: BP 138/87; PULSE 60; RESP 18; TEMP 36.3; O2SAT 95
--- NOTE | 2024-01-30 10:13 | PCM.PN.CARD ---
Subjective Subjective Patient seen and evaluated. Appears to be doing well. Objective Data Vital Signs: Vital Signs Temp Pulse Resp BP Pulse Ox O2 Del Method 97.3 F L 60 18 138/87 H 95 Room Air 01/30/24 06:05 01/30/24 06:05 01/30/24 06:05 01/30/24 06:05 01/30/24 06:05 01/30/24 06:05 Oxygen Delivery Method Room Air Weight: 207 lb Body Mass Index (BMI) 28.8 Intake & Output: Intake and Output for Last 24 Hours 01/28/24 01/29/24 01/30/24 23:59 23:59 23:59 Intake Total 240 / 240 Output Total 1500 / 1500 Balance -1260 / -1260 Lab / Micro Data 01/23/24 14:12 01/23/24 14:12 Cardiology Labs/Tests Rhythm: EKG: ECHO: Stress Test: Cardiac Cath: PCI: CT Surgery: Holter monitor: EPS: PPM: CXR: Chest CT Scan: Radiography Diagnostic Testing: Radiology Impression Chest X-Ray 01/30/24 05:55 IMPRESSION: 1. Appropriate positioning of a left-sided pacemaker without obvious pneumothorax. 2. Cardiomegaly and mild pulmonary vascular congestion. Electronically Signed: Kaitlynn Dodson MD at 5:50 EDT , Physical Exam Const alert, oriented x3 and no apparent distress General Appearance: cooperative HEENT hearing grossly normal bilaterally Head and Scalp: atraumatic Eyes EOMs intact bilaterally Neck General: normal visual inspection Chest inspection of chest normal and palpation of chest normal Resp normal respiratory effort Auscultation: clear to auscultation bilaterally Cardio regular rate, regular rhythm, S1 normal heart sound and S2 normal heart sound Jugular Venous Distention: JVD GI normal to inspection, nondistended, normoactive bowel sounds Extremity normal capillary refill and no pedal edema Peripheral Pulses: Yes pulses 2+ throughout and femoral pulses present Skin no rashes or lesions noted Neuro oriented x3 and CN's II-XII intact bilaterally Psych Appearance: grossly normal and appropriate Assessment & Plan Assessment/Plan (1) Presence of cardiac pacemaker: PLAN: Patient underwent dual-chamber pacemaker placement. Pacemaker check this morning demonstrates normal functioning and no pneumothorax. Patient will be discharged for outpatient follow-up. (2) High degree atrioventricular block: PLAN: Above resolved with pacemaker placement.
--- NOTE | 2024-01-30 10:16 | DCINST_ITS ---
Discharge Instructions Diet Discharge Diet: No restrictions (as you feel able. No excessive stretching. No lifting your arm over your head (keep elbow below shoulder level) until seen for your pacemaker check. Do not lift your elbow away from your side until you are seen for your first visit. Keep the arm sling on if it helps remind you not to lift your arm.) Activity Discharge Activity: May Not Drive May shower in (days): 2 Additional Activity Instructions:: May shower or bathe on [day 3]. Do not scrub the incision or soak in the tub. Just wash with soap and let the water run over the incision. Gently pat dry with towel. Medications: Take your pain medication as directed. Refer to your discharge instruction sheet for a list of medications you are to take. Dressing / Incision Call your doctor if your incision/area has: Continuous Slow Oozing, Sudden Increased Bleeding, Increased Pain/ Swelling, Increased Redness, Foul Smelling Discharge and Swelling at the incision site Call your doctor if you observe: Fever of 101 or Higher, Shortness of breath, Dizziness, Fainting spells, Swelling in the ankles, Chest pain, Prolonged hiccupping and Increased palpitations (irregular heartbeat) Suture Line Care: Avoid Pulling/Pushing and Avoid Pinching/Bending Cleanse incision/area with: Do not get Incision Wet and Keep Dressing Clean & Dry Additional Dressing/Incision Instructions:: When dressing is removed, wash and dry incision. Keep covered with a light bandage if it is rubbing against your clothing. Do not cover the incision with an airtight bandage. Change the bandage daily. Do not remove steri strips. The strips will fall off on their own. Follow Up Care Please Follow Up With: Dionisio Hutchison MD When: Pacer follow-up on February 03 at 10 AM Test Results: Test results from this visit will be discussed in further detail at your follow- up appointment, if applicable. Discharge Plan Admission Admit Date/Time: 01/29/24 13:52 Attending Provider: Dionisio Hutchison Primary Care Provider: Christelle Campos Discharge Orders/Prescriptions Prescriptions: Continued aspirin [Adult Low Dose Aspirin] 81 mg tablet,delayed release (DR/EC) 81 mg PO QDAY latanoprost 0.005 % drops 1 drp OPHTHALMIC DAILY levothyroxine 25 mcg capsule 50 mcg PO DAILY saw palmetto 500 MG capsule 900 mg PO DAILY Patient Comments: SUPPLEMENT multivitamin with folic acid 1 TABLET tablet 1 tab PO DAILY Patient Comments: VITAMIN losartan 100 mg tablet 100 mg PO QDAY Qty: 90 3RF rosuvastatin 10 mg tablet 10 mg PO DAILY Qty: 90 3RF amlodipine 10 mg tablet 10 mg PO DAILY Qty: 90 3RF hydrochlorothiazide 25 mg tablet 25 mg PO DAILY Qty: 90 3RF Held Eliquis 5 mg tablet 5 mg PO BID Hold Instructions: Resume on 02/06/24. Hold until you have seen us in the office. Referrals / Follow Up: Christelle Campos DO [Primary Care Provider] - Disposition Disposition (needs filled in before D/C Order can be placed): Home, Self Care
[2024-01-30] MEDS: FLU VACCINE **HIGH DOSE** TV 24-25 180 MCG/0.5 ML SYRINGE IM (10:23)
--- NOTE | 2024-01-30 12:11 | CHAPLAIN ---
Type of Pastoral Visit ___ Initial Visit ___ Follow-up Visit ___ On-call Visit ___ General Patient Visit ___ Spiritual Assessment ___ Family Conference ___ Bereavement ___ Rapid Response ___ Code Blue ___ Other (describe below) Pastoral Care Referral From ___ Patient ___ Family ___ Nurse ___ Physician ___ Life Skills Educator ___ Tank Tester ___ Other (describe below) Sacrament/Intervention ___ Active listening ___ Anointing ___ Quaker ___ Bereavement ___ Communion ___ Radha exploration ___ ___ Life review ___ Prayer ___ Reconciliation ___ Sacrament of Sick ___ Supportive presence ___ Wedding ___ Other (describe below) Pastoral Comments patient had already been discharged this morning before the lug loader was able to visit
--- NOTE | 2024-02-04 09:17 | CL.IE_ITS ---
Patient: EDMUNDO BROWN Study Date: 01/29/2024 Performing: Dionisio Hutchison MD : 1935 Age: 88 Gender: male PROCEDURES PERFORMED LP04-([id number])INITIAL PACER INSERT+DUAL LEADS INDICATIONS Atrioventricular (AV) block PROCEDURE DETAILS The patient was brought to the Catheterization Lab in the postabsorptive nonsedated state. Informed consent was obtained prior to the procedure. Local anesthetic was given subcutaneously to the left subclavian region with Lidocaine 2%. Access was achieved and a guidewire was advanced into the left subclavian vein. Incision was made to the left subclavicular area. A peel-away sheath was inserted into the left subclavian vein. PPM ventricular lead was inserted / positioned to right ventricular apex. The sheath was then removed. PPM ventricular lead testing performed. PPM ventricular lead testing performed. A peel-away sheath was inserted into the left subclavian vein. PPM atrial lead was inserted / positioned to the right atrial appendage. The sheath was then removed. PPM atrial lead testing performed. The Atrial lead sutured in place with 4-0 Vicryl. The Atrial lead sutured in place with 4-0 Vicryl. The Ventricular PM lead sutured in place with 4-0 Vicryl. Device pocket was irrigated with antibiotic. PPM generator was attached to the lead(s) and inserted into the pocket. PPM generator was then interrogated by the senior analyst programmer. Subcutaneous closure was completed with 2-0 Silk. Skin closure was completed with 2-0 Silk. Steri-strips applied to left subclavicular incision. The patient tolerated the procedure well. Estimated Blood Loss: 10 ml's IMPLANTED / EX-PLANTED DEVICES IMPLANTED DEVICE(S): PPM Ventricular lead - Carder Blankets: [employer]ine, Model # TENDRIL STS , Serial # [id number] PPM Atrial lead - Carder Blankets: [employer]ine, Model # TENDRIL STS , Serial # [id number] PPM Generator - Carder Blankets: [employer], Model # ASSURITY MRI , Serial # [id number] DEVICE PARAMETERS ATRIAL LEAD PARAMETERS: P wave- 1.5 (mV) threshold- 0.5 (V) impedence- 442 (OHMS) 10V test, no diaphragmatic capture VENTRICULAR LEAD PARAMETERS: R wave- 6.5 (mV) threshold- 0.6 (V) impedence- 916 (OHMS) 10V test, no diaphragmatic capture DEVICE PARAMETERS: Mode- DDDR Lower rate- 60 Upper rate- 180 CONCLUSIONS / RECOMMENDATIONS Device Conclusions: Successful implantation of a dual chamber pacemaker battery change and replacement Device Recommendations: Follow up with Primary Care Physician PROCEDURE MEDICATIONS Fentanyl 50 mcg IV Versed 1 mg IV Versed 1 mg IV Fentanyl 25 mcg IV Fentanyl 25 mcg IV Oxygen: 2 L/min via nasal cannula Antibiotic given in appropriate timeframe. Ancef 2 Gm IV @ 01/29/2024 12:31:27 Signed By Dionisio Hutchison MD On 02/04/2024 09:17:15 Signed By Dionisio Hutchison MD On 01/29/2024 13:40:05 Dionisio Hutchison MD
== END 2024-01-30 10:16 | disposition home or self-care (01) ==
LOC: PCU 14:14
PROVIDERS: Physician Assistant Medical; Admitting Provider Internal Medicine Cardiovascular Disease; PCP Family Medicine; Referring Provider Internal Medicine Cardiovascular Disease; Visit Provider Internal Medicine Cardiovascular Disease
DX: Z45.018 Encounter for adjustment and management of other part of cardiac pacemaker (principal); I48.0 Paroxysmal atrial fibrillation; I44.2 Atrioventricular block, complete; Z23 Encounter for immunization; I10 Essential (primary) hypertension; I49.3 Ventricular premature depolarization; R00.1 Bradycardia, unspecified; M19.90 Unspecified osteoarthritis, unspecified site; E78.5 Hyperlipidemia, unspecified; Z79.899 Other long term (current) drug therapy; Z79.82 Long term (current) use of aspirin
CPT/HCPCS: 33208; 36415; 71046; 71047; 80048; 80061; 80076; 81001; 85027; 90662; 99152; 99153; 99221; G0008; A4216; C1894; G0378

== ENCOUNTER → 2025-03-19 | Outpatient (CLI) | payer MEDICARE, SELFPAY ==
--- NOTE | 2025-03-19 14:45 | ECHOD_ITS ---
Reason For Study Reason For Study: ATRIAL FIB-FLUTTER Procedure This was a 2D Doppler, Color Flow transthoracic echocardiogram. Exam performed in department. Left Ventricle Normal LV size. Left ventricular systolic function is normal. The left ventricular ejection fraction is 55 %. No regional wall motion abnormalities noted. Right Ventricle Normal RV size. ICD or pacer leads identified within the right ventricle. Normal systolic function. Atria Normal left atrium. Normal right atrium. Mitral Valve Normal mitral valve. Mild-Moderate (1-2+) eccentric mitral valve insufficiency. Tricuspid Valve Normal tricuspid valve. Mild-Moderate (1-2+) tricuspid valve insufficiency. Pulmonary artery systolic pressure is 40 mmHg. Aortic Valve Trisinus/trileaflet aortic valve. Moderate focal aortic valve calcification. Peak aortic valve gradient 13 mmHg. Mean aortic valve gradient 7 mmHg. Mild aortic stenosis. Mild (1+) aortic valve insufficiency. Pulmonic Valve Normal pulmonic valve. Great Vessels Normal aortic root. The pulmonary artery is normal size. Inferior vena cava collapse with respiration. Pericardium/Pleural No pericardial effusion. MMode/2D Measurements & Calculations LVIDd: 6.6 cm IVSd: 0.85 cm LVOT diam: 2.0 cm LVIDs: 4.0 cm LVPWd: 0.90 cm LVOT area: 3.1 cm2 RVDd: 3.3 cm FS: 39.5 % Ao root diam: 4.6 cm LAV(MOD-bp): 109.9 ml LVAd ap4: 35.1 cm2 LAV(MOD-bp) Indexed: 51.8 ml/m2 LVLd ap4: 8.1 cm LAV(MOD-sp2): 96.7 ml EDV(MOD-sp4): 128.3 ml LAV(MOD-sp4): 112.0 ml EDV(sp4-el): 129.0 ml LVAs ap4: 23.4 cm2 LVLs ap4: 7.7 cm ESV(MOD-sp4): 60.9 ml ESV(sp4-el): 60.6 ml EF(MOD-sp4): 52.6 % EF(sp4-el): 53.0 % LVAd ap2: 39.6 cm2 SV(MOD-sp4): 67.5 ml SV(MOD-sp2): 93.9 ml LVLd ap2: 8.1 cm SI(MOD-sp4): 31.8 ml/m2 SI(MOD-sp2): 44.3 ml/m2 EDV(MOD-sp2): 161.7 ml EDV(sp2-el): 164.7 ml LVAs ap2: 24.1 cm2 LVLs ap2: 7.3 cm ESV(MOD-sp2): 67.8 ml ESV(sp2-el): 68.1 ml EF(MOD-sp2): 58.1 % SV(sp4-el): 68.3 ml LA dimension(2D): 4.7 cm LA A4 area: 32.6 cm2 RA A4 area: 18.3 cm2 TAPSE: 1.8 cm Time Measurements MV dec time: 0.24 sec Doppler Measurements & Calculations MV E max amanda: 88.9 cm/sec Ao V2 max: 179.8 cm/sec AI max amanda: 399.6 cm/sec Ao max P.4 mmHg AI max P.0 mmHg Ao V2 mean: 123.9 cm/sec Ao mean P.2 mmHg AI dec slope: 177.6 cm/sec2 Ao V2 VTI: 40.2 cm AI P1/2t: 658.9 msec AV (velocity ratio): 0.52 MICHAEL(I,D): 1.6 cm2 MICHAEL(V,D): 1.6 cm2 LV V1 max: 94.0 cm/sec MR max maanda: 508.9 cm/sec SV(LVOT): 65.5 ml LV V1 max P.5 mmHg MR max P.6 mmHg LV V1 mean P.0 mmHg MR mean amanda: 392.5 cm/sec LV V1 mean: 66.7 cm/sec MR mean P.1 mmHg LV V1 VTI: 20.8 cm MR VTI: 181.7 cm PA V2 max: 82.3 cm/sec TR max amanda: 301.2 cm/sec TR max P.3 mmHg ECHO/Echo Complete Interpretation Summary Normal LV size. Left ventricular systolic function is normal. The left ventricular ejection fraction is 55 %. ICD or pacer leads identified within the right ventricle. Pulmonary artery systolic pressure is 40 mmHg. Mild aortic stenosis. Moderate focal aortic valve calcification. Ordering Physician: Dionisio Hutchison Referring Physician: Christelle Campos Performed By: Eduar Rios RDCS
--- OUTSIDE RECORDS SUMMARY | 2025-03-19 18:15 | XMS RPT_ITS | CCD ---
Author Organization [facility] CliniSyor Care Team Providers Care Lemon Grower Name Role Phone DARIN MIKE DO Primary Care Physician [phone] Dr. Darin Mike Primary Care Provider Dr. Darin Mike Referring Provider [phone] Dr. Dionisio Hutchison Attending Provider [phone] Darin Mike Primary Care Provider Dr. Darin Mike Referring Provider [phone] GILL Johnson Attending Provider Dr. Darin Mike Attending Provider [phone] Dr. Darin Mike Primary Care Provider Dr. Darin Mike Referring Provider [phone] GILL Johnson Attending Provider DARIN MIKE DO Attending Unavailable DARIN MIKE DO Primary Care Unavailable DARIN MIKE DO Attending Unavailable DARIN MIKE DO Primary Care Unavailable DARIN MIKE DO Attending Unavailable DARIN MIKE DO Primary Care Unavailable FRANKLIN ALLEN MD Attending Unavail able DARIN MIKE DO Primary Care Unavailable DARIN MIKE DO Primary Care Physician Dr. Darin Mike DO Primary Care Provider [phone] Dr. Dionisio Hutchison MD Attending Provider [phone] Dr. Darin Mike DO Referring Provider Dave Lentz Attending Provider DARIN MIKE DO Primary Care Unavailable RASHID DO, DARIN Attending Unavailable RASHID DO, DARIN Attending Unavailable RASHID DO, DARIN Primary Care Unavailable RASHID DO, DARIN Attending Unavailable RASHID DO, DARIN Primary Care Unavailable Rashid SAHU, Dr. Bourgeois Primary Care Provider [phone] Kianna PANIAGUA, Dr. Nichole Attending Provider [phone] Dr. Darin Mike DO Primary Care Physician Kianna PANIAGUA, Dr. Nichole Attending Physician Dr. Darin Mike DO Referring Provider Christine Metzger Attending Physician Unavailable Rashid SAHU, Dr. Bourgeois Primary Care Physician [phone] Kianna PANIAGUA, Dr. Nichole Attending Physician Kianna, [place] Attending Unavailable Rashid, Darin Primary Care Unavailable Kianna, [place] Attending Unavailable Rashid, Darin Primary Care Unavailable Kianna, Dionisio Attending Unavailable Rashid, Darin Primary Care Unavailable Rashid, Darin Referring Unavailable [facility] Dave PATRICIA Attending Unavailable Rashid, Darin Primary Care Unavailable Kianna, Dinoisio Attending Unavailable Rashid, Darin Primary Care Unavailable Rashid, Darin Primary Care Unavailable Kianna, [place] Attending Unavailable Rashid, Darin Referring Unavailable Rashid, Darin Primary Care Unavailable Christine Metzger Attending Unavailable Rashid, Darin Primary Care Unavailable Kianna, Dionisio Attending Unavailable Rashid, Darin Primary Care Unavailable Kianna, Dionisio Attending Unavailable Kianna, Dionisio Referring Unavailable Rashid, Darin Primary Care Unavailable Kianna, [place] Attending Unavailable Rashid, Darin Referring Unavailable Rashid, Darin Primary Care Unavailable Kianna, Dionisio Attending Unavailable Rashid, Darin Referring Unavailable Rashid, Darin Primary Care Unavailable Kianna, [place] Attending Unavailable Allergies Allergy Classification Reported Allergen(s) Allergy Type Date of Onset Reaction(s) Facility (20 sources) Niacin; Translations: [niacin] Drug Allergy 2 Abdominal pain, Rash [facility] (9 sources) Warfarin Drug Allergy 3 severe nosebleeds, labile INR [facility] (1 source) Niacin Drug Allergy 5 [facility] Repository (1 source) Warfarin Drug Allergy 5 [facility] Repository Medications Current Medications Medication Drug Class(es) Dates Sig (Normalized) Sig (Original) aspirin 81 mg delayed release oral tablet (20 sources) Platelet Aggregation Inhibitor, Nonsteroidal Anti-inflammatory Drug Start: 01-30-2019 aspirin 81 mg oral delayed release tablet Dose : 81 mg = 1 tab(s), Oral, qDay, 0 Refill(s) Start Date: 01/30/19 Status: Ordered Start: 09-05-2017 Start: 05-14-2013 End: 09-05-2017 take 1 tablet by mouth twice daily at mealtime Aspirin 325 MG tablet Discontinued 325 mg PO TWICE DAILY WITH MEALS 60 0 May 14, 2013 1:00am September 05, 2017 1:29pm Start: 04-29-2013 End: 05-14-2013 take 1 tablet by mouth once daily Aspirin 81 MG Tab.Chew Discontinued 81 mg PO DAILY@0800 April 29, 2013 1:00am May 14, 2013 12:38pm Fish Oils (4 sources) Start: 03-15-2023 omega-3 fish o il 1000 mg oral capsule Dose : 1,000 mg = 1 cap(s), Oral, qDay, # 90 cap(s), 0 Refill(s) Start Date: 03/15/23 Status: Ordered Quantity: 90.0 Unit: cap(s) Repeat number: 1 Start: 03-15-2023 omega-3 fish o il 1000 mg oral capsule Dose : 1,000 mg = 1 cap(s), Oral, qDay, # 90 cap(s), 0 Refill(s) Start Date: 03/15/23 Status: Ordered latanoprost 0.05 mg/ml ophth almic solution (20 sources) Prostaglandin Analog Start: 09-04-2019 Start: 01-30-2019 latanoprost 0. 005% ophthalmic solution Dose = 1 drop(s), Eye, right, qHS, # 2.5 mL, 0 Refill(s) Start Date: 01/30/19 Status: Ordered Quantity: 2.5 Unit: mL Repeat number: 1 Start: 01-30-2019 latanoprost 0. 005% ophthalmic solution Dose = 1 drop(s), Eye, right, qHS, # 2.5 mL, 0 Refill(s) Start Date: 01/30/19 Status: Ordered levothyroxine sodium 0.05 mg oral tablet (18 sources) l-Thyroxine Start: 08-06-2024 Synthroid 50 m cg (0.05 mg) oral tablet Dose : 50 mcg = 1 tab(s), Oral, qDay, # 90 tab(s), 0 Refill(s), Pharmacy: [facility]/pharmacy #[id number], Hypothyroidism, 179.5, cm, 03/06/24 9:07:00 EST, Height, kg, 03/06/24 9:07:00 EST, Dosing Weight Start Date: 08/06/24 Status: Ordered Quantity: 90.0 Unit: tab(s) Repeat number: 1 Indications: Hypothyroidism, unspecified; Start: 03-06-2024 Synthroid 50 m cg (0.05 mg) oral tablet Dose : 50 mcg = 1 tab(s), Oral, qDay, # 90 tab(s), 1 Refill(s), Pharmacy: [facility]/pharmacy #[id number], Hypothyroidism, 179.5, cm, 03/06/24 9:07:00 EST, Height, kg, 03/06/24 9:07:00 EST, Dosing Weight Start Date: 03/06/24 Status: Ordered Start: 12-05-2023 take 2 capsules by m outh once daily Start: 11-21-2023 Synthroid 50 m cg (0.05 mg) oral tablet Dose : 50 mcg = 1 tab(s), Oral, qDay, Increased dose, # 90 tab(s), 1 Refill(s), Pharmacy: [facility]/pharmacy #[id number], Hypothyroidism, 179.5, cm, 09/13/23 9:59:00 EDT, Height, kg, 09/13/23 9:59:00 EDT, Dosing Weight Start Date: 11/21/23 Status: Ordered Start: 08-28-2023 End: 12-05-2023 take 1 capsule by mouth once daily Levothyroxine 25 mcg capsule Discontinued 25 ug PO DAILY August 28, 2023 12:00am December 05, 2023 8:53am Start: 03-16-2023 Synthroid 25 m cg (0.025 mg) oral tablet Dose : 25 mcg = 1 tab(s), Oral, qDay, # 30 tab(s), 5 Refill(s), Pharmacy: [facility] #[id number], Hypothyroidism, 179, cm, 03/15/23 13:10:00 EST, Height, kg, 03/15/23 13:10:00 EST, Dosing Weight Start Date: 03/16/23 Status: Ordered Start: 09-18-2022 Synthroid 25 m cg (0.025 mg) oral tablet Dose : 25 mcg = 1 tab(s), Oral, qDay, # 30 tab(s), 2 Refill(s), [facility]acy: [facility] #[id number], Hypothyroidism, 181, cm, 03/22/22 11:24:00 EST, Height, kg, 03/22/22 11:24:00 EST, Dosing Weight Start Date: 09/18/22 Status: Ordered Start: 06-27-2022 Synthroid 25 m cg (0.025 mg) oral tablet Dose : 25 mcg = 1 tab(s), Oral, qDay, # 30 tab(s), 2 Refill(s), Pharmacy: [facility] #[id number], Hypothyroidism, 181, cm, 03/22/22 11:24:00 EST, Height, kg, 03/22/22 11:24:00 EST, Dosing Weight Start Date: 06/27/22 Status: Ordered metoprolol tartrate 25 mg oral tablet (6 sources) beta-Adrenergic Alondra Start: 06-20-2024 take 1 tablet by mouth twice daily Multivitamin preparation (7 sources) Start: 03-22-2022 take 1 tablet by mouth once daily Multivitamin Dose = 1 tab(s), Oral, Daily, 0 Refill(s) Start Date: 03/22/22 Status: Ordered Repeat number: 1 Start: 03-22-2022 take 1 tablet by kari th once daily Multivitamin Dose = 1 tab(s), Oral, Daily, 0 Refill(s) Start Date: 03/22/22 Status: Ordered Multivitamin With Folic Acid (9 sources) Start: 04-29-2013 take 1 tablet by mouth once daily Multivitamin With Folic Acid Active 1 TABLET PO DAILY April 29, 2013 4:04pm Start: 04-29-2013 take 1 tablet by kari th once daily Multivitamin With Folic Acid Active 1 TABLET PO DAILY April 29, 2013 12:00am Start: 04-29-2013 take 1 tablet by kari th once daily Multivitamin With Folic Acid Active 1 TABLET PO DAILY April 29, 2013 1:00am Multivitamin With Folic Acid 1 TABLET tablet (6 sources) Start: 04-29-2013 take 1 tablet by kari once daily Start: 04-29-2013 take 1 tablet by kari once daily Multivitamin With Folic Acid 1 TABLET tablet Active 1 {tbl} PO DAILY April 29, 2013 1:00am Complies with drug therapy Start: 04-29-2013 take 1 tablet by kari once daily Multivitamin With Folic Acid 1 TABLET tablet Active 1 {tbl} PO DAILY April 29, 2013 1:00am [place]-3 Fatty Acids 1,000 mg capsule (6 sources) Start: 06-13-2024 take 1 capsule by mo ut once daily Start: 06-13-2024 take 1 capsule by mo [facility] once daily [place]-3 Fatty Acids 1,000 mg capsule Active 1000 mg PO daily June 13, 2024 1:00am Complies with drug therapy Start: 06-13-2024 take 1 capsule by mo ut once daily [place]-3 Fatty Acids 1,000 mg capsule Active 1000 mg PO daily June 13, 2024 1:00am Saw [place] (15 sources) Start: 04-29-2013 take 900 mg by mouth once daily Saw [place] Active 900 MG PO DAILY April 29, 2013 4:04pm Start: 04-29-2013 take 1 capsule by mo ut once daily Start: 04-29-2013 take 1 capsule by mo ut once daily Saw [place] 500 MG capsule Active 900 mg PO DAILY April 29, 2013 1:00am Complies with drug therapy Start: 04-29-2013 take 1 capsule by mo uth once daily Saw [place] 500 MG capsule Active 900 mg PO DAILY April 29, 2013 1:00am Start: 04-29-2013 take 900 mg by mouth once osei y Saw [place] Active 900 MG PO DAILY April 29, 2013 12:00am Start: 04-29-2013 take 900 mg by mouth once osei y Saw [place] Active 900 MG PO DAILY April 29, 2013 1:00am saw palmetto oral capsule (9 sources) Start: 01-30-2019 take 1 capsule by mouth once daily saw palmetto oral capsule Dose = 1 cap(s), Oral, Daily, 0 Refill(s) Start Date: 01/30/19 Status: Ordered Repeat number: 1 Start: 01-30-2019 take 1 capsule by mo [facility] once daily saw palmetto oral capsule Dose = 1 cap(s), Oral, Daily, 0 Refill(s) Start Date: 01/30/19 Status: Ordered Timolol Maleate (7 sources) beta-Adrenergic Alondra Start: 01-20-2025 Start: 01-20-2025 Timolol Maleat e 0.5 % drops Active 1 NMA OPHTHALMIC TWICE A DAY January 20, 2025 12:00am Complies with drug therapy Start: 03-15-2023 timolol maleat e 0.5% ophthalmic solution Dose = 1 drop(s), Eyes, both, Daily, # 15 mL, 0 Refill(s) Start Date: 03/15/23 Status: Ordered Quantity: 15.0 Unit: mL Repeat number: 1 Start: 03-15-2023 take 1 dose into the eye(s) once daily timolol maleate 0.5% ophthalmic solution Dose = 1 drop(s), Eyes, both, Daily, # 15 mL, 0 Refill(s) Start Date: 03/15/23 Status: Ordered Start: 03-15-2023 take 1 dose into the eye(s) once daily timolol maleate 0.5% ophthalmic solution Dose = 1 drop(s), Eyes, both, Daily, # 15 mL, 0 Refill(s) Start Date: 03/15/23 Status: Ordered Completed/Discontinued Medications Medication Drug Class(es) Dates Sig (Normalized) Sig (Original) acetaminophen 325 mg / oxyCODONE hydrochloride 5 mg oral tablet (15 sources) Opioid Agonist Start: 05-14-2013 End: 09-04-2017 Oxycodone-Acetamino phen 1 TABLET tablet Discontinued 1 - 2 {tbl} PO EVERY 6 HOURS NEEDED as needed for Pain May 14, 2013 1:00am September 04, 2017 8:59pm Start: 05-14-2013 End: 09-04-2017 take 1 tablet by mouth every six hours as needed Oxycodone-Acetaminophen Discontinued 1 - 2 TABLET PO EVERY 6 HOURS NEEDED May 14, 2013 1:00am September 04, 2017 8:59pm amLODIPine 10 mg oral tablet (20 sources) Dihydropyridine Calcium Channel Alondra Start: 04-29-2013 End: 08-06-2024 take 1 tablet by mouth once daily Amlodipine 10 mg tablet Discontinued 10 mg PO DAILY 90 October 04, 2023 4:03pm August 06, 2024 9:01am apixaban 5 mg oral tablet (20 sources) Factor Xa Inhibitor Start: 12-12-2022 End: 01-20-2025 take 1 tablet by mouth twice daily Apixaban (Eliquis) 5 mg tablet Discontinued 5 mg PO TWICE A DAY 30 August 06, 2024 9:01am January 20, 2025 9:19am Start: 06-21-2022 End: 09-06-2022 take 1 tablet by mouth twice daily Apixaban (Eliquis) 5 mg tablet Discontinued 5 mg PO TWICE A DAY 60 June 21, 2022 1:00am September 06, 2022 9:19am ezetimibe 10 mg oral tablet (15 sources) Dietary Cholesterol Absorption Inhibitor Start: 09-05-2017 End: 09-05-2017 take 1 tablet by mouth once daily Ezetimibe (Zetia) 10 mg tablet Discontinued 10 mg PO daily September 05, 2017 12:00am September 05, 2017 1:58pm hydroCHLOROthiazide 25 mg oral tablet (20 sources) Thiazide Diuretic Start: 04-29-2013 End: 01-20-2025 take 1 tablet by mouth once daily Hydrochlorothiazide 25 mg tablet Discontinued 25 mg PO DAILY January 09, 2024 12:05pm January 20, 2025 9:19am On Hold: Order Changed losartan potassium 100 mg oral tablet (20 sources) Angiotensin 2 Receptor Alondra Start: 09-05-2018 End: 10-21-2024 take 1 tablet by mouth once daily Losartan 100 mg tablet Discontinued 100 mg PO daily October 20, 2024 7:55am October 21, 2024 4:46pm Start: 09-05-2017 End: 09-05-2018 take 1 tablet by mouth once daily Losartan 50 mg tablet Discontinued 50 mg PO daily 90 September 02, 2018 8:30am September 05, 2018 11:54am rosuvastatin calcium 10 mg oral tablet (20 sources) HMG-CoA Reductase Inhibitor Start: 04-29-2013 End: 09-30-2024 take 1 tablet by mouth once daily Rosuvastatin 10 mg tablet Discontinued 10 mg PO DAILY 90 3 September 29, 2024 11:57am September 30, 2024 12:17pm sildenafil 50 mg oral tablet (20 sources) Phosphodiesterase 5 Inhibitor Start: 10-09-2018 End: 12-05-2023 Sildenafil 50 mg tablet Discontinued 0 .ROUTE .COMPLEX 30 2 September 20, 2020 2:03pm September 06, 2022 9:21am TAKE 1 TABLET (50 MG) DAILY NEEDED FOR SEXUAL ACTIVITY 30 MINUTES TO 4 HOURS BEFORE ACTIVITY Start: 09-05-2017 End: 10-09-2018 Sildenafil 50 mg tablet Disc ontinued 50 mg PO daily as needed for sexual activity 30 0 September 05, 2017 12:00am October 09, 2018 1:45pm administer 30 minutes to 4 hours before activity tamsulosin hydrochloride 0.4 mg oral capsule (18 sources) alpha-Adrenergic Alondra Start: 09-06-2021 End: 09-06-2022 take 1 capsule by mouth at bedtime Tamsulosin 0.4 mg capsule Discontinued 0.4 mg PO AT BEDTIME September 06, 2021 12:00am September 06, 2022 9:20am warfarin sodium 4 mg oral tablet (13 sources) Vitamin K Antagonist Start: 08-07-2022 End: 12-12-2022 Warfarin 4 mg tablet Discontinued 4 mg PO .every evening Protocol: Adjustment Start Date: Sunday12/04/22INR Value: 3.5INR Date: 11/20/22Recheck Date: 12/11/22 Condition: Sunday Dose/Route: 0 mg Instructions: 0 tablets Condition: Sunday Dose/Route: 0 mg Instructions: 0 tablets Condition: Sunday Dose/Route: 0 mg Instructions: 0 tablets Condition: Sunday Dose/Route: 0 mg Instructions: 0 tablets Condition: Dose/Route: 0 mg Instructions: 0 tablets Condition: Sunday Dose/Route: 0 mg Instructions: 0 tablets Condition: Sunday Dose/Route: 0 mg Instructions: 0 tablets 30 August 07, 2022 12:00am December 12, 2022 4:43pm *Start when Nerissa runs out Please contact the information source for Protocol details. Problems Problem Classification Problem Date Documented Da te Episodic/Chronic Cardiac dysrhythmias (20 sources) Paroxysmal atrial fibrillation; Translations: [Paroxysmal atrial fibrillation] Onset: 7 Chronic Cardiac dysrhythmias (18 sources) Bradycardia; Translations: [Bradycardia, unspecified] 09-05-2017 Episodic Conduction disorders (20 sources) Incomplete atrioventricular block with atrioventricular response; Translations: [Other atrioventricular block] Onset: 4 01-29-2024 Chronic Disorders of lipid metabolism (20 sources) Hyperlipidemia; Translations: [Hyperlipidemia, unspecified] 01-30-2019 Chronic Essential hypertension (20 sources) Hypertensive disorder; Translations: [Essential hypertension] Onset: 3 01-30-2019 Chronic Gastrointestinal hemorrhage (3 sources) Hematochezia 02-21-2024 Episodic Heart valve disorders (20 sources) Aortic valve disorder; 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, non-rheumatic ] 01-30-2019 Chronic Hyperplasia of prostate (9 sources) Benign prostatic hyperplasia 01-30-2019 Chronic Immunizations and screening for infectious disease (8 sources) Viral screening status; Translations: [Encounter for screening for other viral diseases] Episodic Osteoarthritis (9 sources) Arthritis 08-01-2019 Chronic Other aftercare (13 sources) Long-term current use of anticoagulant; Translations: [MCFP (current) use of anticoagulants] 08-07-2022 Episodic Other and ill-defined heart disease (15 sources) Left ventricular hypertrophy; Translations: [Cardiomegaly] 09-05-2021 Chronic Other nutritional; endocrine; and metabolic disorders (7 sources) Overweight in adulthood with body mass index of 25 or more but less than 30 03-22-2022 Episodic Other screening for suspected conditions (not mental disorders or infectious disease) (1 source) Diabetic monitoring status; Translations: [Encounter for screening for diabetes mellitus] Episodic Other skin disorders (9 sources) Lesion of skin of face 02-09-2021 Episodic Other skin disorders (9 sources) Multiple actinic keratoses 01-30-2019 Episodic Other upper respiratory disease (1 source) Bleeding from nose; Translations: [Epistaxis] Onset: 3 Episodic Residual codes; unclassified (9 sources) Needs influenza immunization 02-08-2021 Episodic Residual codes; unclassified (9 sources) Requires vaccination 01-30-2019 Episodic Thyroid disorders (4 sources) Hypothyroidism 03-15-2023 Chronic Unclassified (20 sources) Patient encounter status 01-30-2019 Unclassified (7 sources) Never used tobacco 03-22-2022 Unclassified (4 sources) Drug therapy finding 03-15-2023 Unclassified (3 sources) Influenza vaccination status 02-21-2024 Unclassified (1 source) Longstanding persistent atrial fibrillation; Translations: [Longstanding persistent atrial fibrillation] Onset: 5 Results Test Name Value Interpretation Reference Range Facility Cardiology Visit Reporton Cardiology Visit Report [facility] [address] [place] [address] OFFICE VISIT Date of Service: 01/20/25 MR#: [id number] Acct: [id number] Name: EDMUNDO BROWN Rep #: [id number] : 1935 Provider: Dr. Dionisio Hutchison MD Age/Sex: 89/M Location: [facility] Status: Signed HPI HPI History of Present Illness Surgical H P: Yes Details: EDMUNDO BROWN, is a 89 y/o gentleman who presents to the office today to review the results of a 14- day event monitor. He has a history of hypertension as well as bradycardia.??? He remains fairly active.??? You do remember that in 2013 he was thought to have an irregular heartbeat and underwent a 48-hour Holter monitor which demonstrated predominantly sinus rhythm with heart rates varying between 45 and 113 bpm and an average heart rate of 61 bpm in sinus rhythm with occasional premature ventricular complexes.??? He did well in the interim and then in 2016 had another Holter monitor performed for reasons that are not entirely clear.??? It did demonstrate that he had predominantly atrial fibrillation with an average heart rate of 94 bpm with rare bursts of narrow supraventricular tachycardia.? His echocardiogram in June 2017 demonstrated preserved ejection fraction of 60%, moderate LVH.??? A stress test demonstrated normal sinus rhythm, no evidence of ischemia and excellent chronotropic response.??? He underwent permanent pacemaker implantation after he was noted to have significant pauses. His pacemaker was interrogated this morning. He did have some questions about his statin therapy and I suggested to him that at this particular time I think he should continue it. He denies chest, arm, jaw, or neck discomfort. He denies palpitations. He denies bilateral lower extremity edema. He denies claudication. He denies shortness of breath with activity, shortness of breath at rest, orthopnea, or PND. He denies chronic cough. He denies significant, sudden weight gain. He denies lightheadedness, dizziness, near-syncope, or syncope. He denies blood in urine, blood in stool, or epistaxis. He denies fever with chills. He denies myalgia. He denies fatigue. His exercise level has remained stable. 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 Required: No Accompanied by: Self Is patient in pain?: No Allergies niacin Allergy (Verified 01/20/25 09:18) Rash warfarin Adverse Reaction (Severe, Verified 01/20/25 09:18) severe nosebleeds, labile INR Medications ???Medication ???Instructions ???Recorded ???Confirmed ???Type multivitamin with folic acid 400 1 tab PO DAILY 04/29/13 01/20/25 H istory mcg tablet saw palmetto 500 mg capsule 900 mg PO DAILY 04/29/13 01/20/25 History aspirin 81 mg tablet,delayed 81 mg PO QDAY 09/05/17 01/20/25 Hi story release (Adult Low Dose Aspirin) latanoprost 0.005 % eye drops 1 drp ophthalmic (eye) DAILY 09/0301/20/25 History levothyroxine 25 mcg capsule 50 mcg PO DAILY 12/05/23 01/20/25 History omega-3 fatty acids 1,000 mg 1,000 mg PO QDAY 06/13/24 01/20/25 History capsule metoprolol tartrate 25 mg tablet 25 mg PO BID #180 tabs 06/20/24 Rx amlodipine 10 mg tablet 10 mg PO DAILY #90 tabs 08/06/24 1 Rx rosuvastatin 10 mg tablet 10 mg PO DAILY #90 TABLETS 5 01/20/25 Rx losartan 100 mg tablet 100 mg PO QDAY #90 tabs 10/21/24 1 Rx apixaban 5 mg tablet (Eliquis) 5 mg PO BID #30 tabs 01/20/2511/07 Rx timolol maleate 0.5 % eye drops 1 drp ophthalmic (eye) BID 5 01/20/25 History Ejection fraction %: 60 Have you fallen in the past year?: No PFSH Medical History High degree atrioventricular block Longstanding persistent atrial fibrillation Left ventricular hypertrophy Plantar fasciitis Essential (primary) hypertension Paroxysmal atrial fibrillation (07/03/16) Bradycardia Osteoarthritis Hyperlipidemia Surgical History Presence of cardiac pacemaker (01/29/24) Hx of bilateral cataract extraction ( 06/2022) History of left knee replacement History of arthroscopy of left knee H/O left knee surgery Family History Mother Cancer lung cancer Father Heart disease chf Social History Smoking Status: Never smoker alcohol intake: never substance use type: does not use caffeine: Yes Type: tea Number (more content not included)... Normal [facility] Pacemaker Checkon 01-20-2025 Pacemaker Check [facility] [address] [place] [address] Pacemaker Check Date of Service: 01/20/25 1608 MR#: [id number] Acct: [id number] Name: EDMUNDO BROWN Rep #: [id number] : 1935 From: Christine Metzger Age/Sex: 89/M Location: [facility] Status: Signed Billing Codes PM Device Codes: 12433 PM Dev Prog Eval, Dual Assessment and Plan Assessment and Plan (1) Presence of cardiac pacemaker: Status: Acute (2) High degree atrioventricular block: Status: Chronic (3) Longstanding persistent atrial fibrillation: Status: Inactive (4) Paroxysmal atrial fibrillation: Status: Chronic 01/20/25 1609 Date Christine Degroot Signature: Date (if applicable) CC: Normal [facility] .Auto Diffon 09-13-2024 Basophil, Absolute 0.0 10 3/mcL Normal 0.0-0.3 [facility] Comment on above: Performed By: #### P SA, TSHR, LIPID, CMP, GFR, ANEU, CBC, VIDH, ADIFF #### [address] [address] Basophils/100 WBC (Bld) 0.8 % Normal 0.0-2.5 [facility] Comment on above: Performed By: #### P SA, TSHR, LIPID, CMP, GFR, ANEU, CBC, VIDH, ADIFF #### [address] [address] Eosinophil, Absolute 0.3 10 3/mcL Normal 0.0-0.7 [facility] Comment on above: Performed By: #### P SA, TSHR, LIPID, CMP, GFR, ANEU, CBC, VIDH, ADIFF #### [address] [address] Eosinophils/100 WBC (Bld) 5.4 % Normal 0.0-6.0 [facility] Comment on above: Performed By: #### P SA, TSHR, LIPID, CMP, GFR, ANEU, CBC, VIDH, ADIFF #### [address] [address] Lymphocyte, Absolute 1.2 10 3/mcL Normal 0.9-4.3 [facility] Comment on above: Performed By: #### P SA, TSHR, LIPID, CMP, GFR, ANEU, CBC, VIDH, ADIFF #### [address] [address] Lymphocytes/100 WBC (Bld) 22.2 % Normal 20.0-40.0 [facility] Comment on above: Performed By: #### P SA, TSHR, LIPID, CMP, GFR, ANEU, CBC, VIDH, ADIFF #### [address] [address] Monocyte, Absolute 0.5 10 3/mcL Normal 0.1-1.4 [facility] Comment on above: Performed By: #### P SA, TSHR, LIPID, CMP, GFR, ANEU, CBC, VIDH, ADIFF #### [address] [address] Monocytes/100 WBC (Bld) 9.5 % Normal 2.0-13.0 [facility] Comment on above: Performed By: #### P SA, TSHR, LIPID, CMP, GFR, ANEU, CBC, VIDH, ADIFF #### [address] [address] Neutrophils/100 WBC (Bld) 62.1 % Normal 50.0-75.0 [facility] Comment on above: Performed By: #### P SA, TSHR, LIPID, CMP, GFR, ANEU, CBC, VIDH, ADIFF #### [address] [address] .GFRon 09-13-2024 Estimated Glomerular Filtration Rate 81 ml/min/1.73sqm Normal [facility] Comment on above: Result Comment: Stages of Chronic Kidney Disease (CKD) Stage Description eGFR(ml/min/1.73 sq.m.) CKD 1 Normal kidney function or >=90 normal kindney function with possible kidney damage (ex. Proteinuria) CKD 2 Kidney damage with mild loss 60-89 of kidney function CKD 3a Mild to moderate loss of kidney 45-59 function CKD 3b Moderate to severe loss of 30-44 of kindey function CKD 4 Severe loss of kidney function 15-29 CKD 5 Kidney failure <15 Note: (go live 2024) the eGFR calculation was updated to the 2020 CKD-EPI creatinine equation without a race factor to calculate the eGFR results. Performed By: #### P SA, TSHR, LIPID, CMP, GFR, ANEU, CBC, VIDH, ADIFF #### [place] [address] .NEUABSon 09-13-2024 Neutrophil, Absolute 3.4 10 3/mcL Normal 2.3-8.1 [facility] Comment on above: Performed By: #### P SA, TSHR, LIPID, CMP, GFR, ANEU, CBC, VIDH, ADIFF #### [place] [address] CBCon 09-13-2024 Erythrocyte distribution width (RBC) [Ratio] 13.8 % Normal 11.5-15.5 [facility] Comment on above: Performed By: #### P SA, TSHR, LIPID, CMP, GFR, ANEU, CBC, VIDH, ADIFF #### [place] [address] Hematocrit (Bld) [Volume fraction] 43.6 % Normal 40.0-52.0 [facility] Comment on above: Performed By: #### P SA, TSHR, LIPID, CMP, GFR, ANEU, CBC, VIDH, ADIFF #### [place] [address] Hgb 14.7 G/dL Normal 13.0-17.5 [facility] Comment on above: Performed By: #### P SA, TSHR, LIPID, CMP, GFR, ANEU, CBC, VIDH, ADIFF #### [place] [address] MCH (RBC) [Entitic mass] 29.2 pg Normal 27.0-33.0 [facility] Comment on above: Performed By: #### P SA, TSHR, LIPID, CMP, GFR, ANEU, CBC, VIDH, ADIFF #### [place] [address] MCHC 33.7 G/dL Normal 32.0-36.0 [facility] Comment on above: Performed By: #### P SA, TSHR, LIPID, CMP, GFR, ANEU, CBC, VIDH, ADIFF #### [place] [address] [place], [place] [address] MCV (RBC) [Entitic vol] 86.9 fL Normal 81.0-100.0 [facility] Comment on above: Performed By: #### P SA, TSHR, LIPID, CMP, GFR, ANEU, CBC, VIDH, ADIFF #### [address] [address] Platelet 166 10 3/mcL Normal 150-450 [facility] Comment on above: Performed By: #### P SA, TSHR, LIPID, CMP, GFR, ANEU, CBC, VIDH, ADIFF #### [address] [address] Platelet mean volume (Bld) [Entitic vol] 8.9 fL Normal 6.4-10.5 [facility] Comment on above: Performed By: #### P SA, TSHR, LIPID, CMP, GFR, ANEU, CBC, VIDH, ADIFF #### [address] [address] RBC 5.02 10 6/mcL Normal 4.50-6.00 [facility] Comment on above: Performed By: #### P SA, TSHR, LIPID, CMP, GFR, ANEU, CBC, VIDH, ADIFF #### [address] [address] WBC 5.4 10 3/mcL Normal 4.5-10.8 [facility] Comment on above: Performed By: #### P SA, TSHR, LIPID, CMP, GFR, ANEU, CBC, VIDH, ADIFF #### [address] [address] CMPon 09-13-2024 Albumin Level 3.6 G/dL Normal 3.4-4.8 [facility] Comment on above: Performed By: #### P SA, TSHR, LIPID, CMP, GFR, ANEU, CBC, VIDH, ADIFF #### [place] [address] Albumin/Globulin [Mass ratio] 1.1 {ratio} Normal 1.1-2.5 [facility] Comment on above: Performed By: #### P SA, TSHR, LIPID, CMP, GFR, ANEU, CBC, VIDH, ADIFF #### [place] [address] ALP [Catalytic activity/Vol] 54 U/L Normal 40-135 [facility] Comment on above: Performed By: #### P SA, TSHR, LIPID, CMP, GFR, ANEU, CBC, VIDH, ADIFF #### [place] [address] ALT [Catalytic activity/Vol] 18 U/L Normal 16-63 [facility] Comment on above: Performed By: #### P SA, TSHR, LIPID, CMP, GFR, ANEU, CBC, VIDH, ADIFF #### [place] [address] AST [Catalytic activity/Vol] 20 U/L Normal 10-40 [facility] Comment on above: Performed By: #### P SA, TSHR, LIPID, CMP, GFR, ANEU, CBC, VIDH, ADIFF #### [place] [address] Bili Total 0.8 mg/dL Normal 0.2-1.0 [facility] Comment on above: Result Comment: Use of this assay is not recommended for patients undergoing treatment with eltrombopag due to the potential for falsely elevated results. Performed By: #### P SA, TSHR, LIPID, CMP, GFR, ANEU, CBC, VIDH, ADIFF #### [place] [address] BUN/Creatinine Ratio 18 ratio Normal 7-27 [facility] Comment on above: Performed By: #### P SA, TSHR, LIPID, CMP, GFR, ANEU, CBC, VIDH, ADIFF #### [place] [address] Calcium [Mass/Vol] 9.0 mg/dL Normal 8.4-10.2 [facility] Comment on above: Performed By: #### P SA, TSHR, LIPID, CMP, GFR, ANEU, CBC, VIDH, ADIFF #### [place] [address] Chloride [Moles/Vol] 105 mmol/L Normal 98-107 [facility] Comment on above: Performed By: #### P SA, TSHR, LIPID, CMP, GFR, ANEU, CBC, VIDH, ADIFF #### [place] [address] CO2 [Moles/Vol] 30 mmol/L Normal 23-31 [facility] Comment on above: Performed By: #### P SA, TSHR, LIPID, CMP, GFR, ANEU, CBC, VIDH, ADIFF #### [place] [address] Creatinine [Mass/Vol] 0.92 mg/dL Normal 0.67-1.17 [facility] Comment on above: Performed By: #### P SA, TSHR, LIPID, CMP, GFR, ANEU, CBC, VIDH, ADIFF #### [place] [address] Electrolyte Balance 4.0 mEq/L Normal 4.0-15.0 [facility] Comment on above: Performed By: #### P SA, TSHR, LIPID, CMP, GFR, ANEU, CBC, VIDH, ADIFF #### [place] [address] Globulin 3.3 G/dL Normal 2.7-4.4 [facility] Comment on above: Performed By: #### P SA, TSHR, LIPID, CMP, GFR, ANEU, CBC, VIDH, ADIFF #### [place] [address] Glucose [Mass/Vol] 101 mg/dL Normal 83-110 [facility] Comment on above: Performed By: #### P SA, TSHR, LIPID, CMP, GFR, ANEU, CBC, VIDH, ADIFF #### [address] [address] Potassium [Moles/Vol] 4.5 mmol/L Normal 3.5-5.1 [facility] Comment on above: Performed By: #### P SA, TSHR, LIPID, CMP, GFR, ANEU, CBC, VIDH, ADIFF #### [address] [address] Sodium [Moles/Vol] 139 mmol/L Normal 136-145 [facility] Comment on above: Performed By: #### P SA, TSHR, LIPID, CMP, GFR, ANEU, CBC, VIDH, ADIFF #### [address] [address] Total Protein 6.9 G/dL Normal 6.4-8.2 [facility] Comment on above: Performed By: #### P SA, TSHR, LIPID, CMP, GFR, ANEU, CBC, VIDH, ADIFF #### [address] [address] Urea nitrogen [Mass/Vol] 17 mg/dL Normal 7-18 [facility] Comment on above: Performed By: #### P SA, TSHR, LIPID, CMP, GFR, ANEU, CBC, VIDH, ADIFF #### [address] [address] LABORATORYOrdered By: SYSTEM SYSTEM on 09-13-2024 25-hydroxyvitamin D3 [Mass/Vol] 38.1 ng/mL Invalid Interpretation Code AO ADM SS Comment on above: Interpretive Data: I nterpretive Values Based on Total 25(OH) Vitamin D: Deficient <20 ng/mL Insufficient 20 - <30 ng/mL Sufficient 30-100 ng/mL Albumin BCP dye [Mass/Vol] 3.6 G/dL Normal 3.4 - 4.8 G/dL AO ADM SS Albumin/Globulin [Mass ratio] 1.1 {ratio} Normal 1.1 - 2.5 ratio AO ADM SS ALP [Catalytic activity/Vol] 54 U/L Normal 40 - 135 U/L AO ADM SS ALT With P-5'-P [Catalytic activity/Vol] 18 U/L Normal 16 - 63 U/L AO ADM SS AST With P-5'-P [Catalytic activity/Vol] 20 U/L Normal 10 - 40 U/L AO ADM SS Basophils (Bld) [#/Vol] 0.0 103/mcL Normal 0.0 - 0.3 10^3/mcL AO Workflow SS Basophils/100 WBC (Bld) 0.8 % Normal 0.0 - 2.5 % AO Workflow SS Bilirubin [Mass/Vol] 0.8 mg/dL Normal 0.2 - 1 .0 mg/dL AO ADM SS Comment on above: Interpretive Data: U se of this assay is not recommended for patients undergoing treatment with eltrombopag due to the potential for falsely elevated results. Calcium [Mass/Vol] 9.0 mg/dL Normal 8.4 - 10. 2 mg/dL AO ADM SS Chloride [Moles/Vol] 105 mmol/L Normal 98 - 10 7 mmol/L AO ADM SS CO2 [Moles/Vol] 30 mmol/L Normal 23 - 31 mmol/L AO ADM SS Creatinine [Mass/Vol] 0.92 mg/dL Normal 0.67 - 1.17 mg/dL AO ADM SS Electrolyte Balance 4.0 mEq/L Normal 4.0 - 15 .0 mEq/L AO ADM SS Eosinophil, Absolute 0.3 103/mcL Normal 0.0 - 0 .7 10^3/mcL AO Workflow SS Eosinophils/100 WBC (Bld) 5.4 % Normal 0.0 - 6.0 % AO Workflow SS Erythrocyte distribution width (RBC) [Ratio] 13.8 % Normal 11.5 - 15.5 % AO Workflow SS Estimated Glomerular Filtration Rate 81 ml/min/1.73sqm Invalid Interpretation Code AO Chemistry S Comment on above: Interpretive Data: Stages of Chronic Kidney Disease (CKD) Stage Description eGFR(ml/min/1.73 sq.m.) CKD 1 Normal kidney function or >=90 normal kindney function with possible kidney damage (ex. Proteinuria) CKD 2 Kidney damage with mild loss 60-89 of kidney function CKD 3a Mild to moderate loss of kidney 45-59 function CKD 3b Moderate to severe loss of 30-44 of kindey function CKD 4 Severe loss of kidney function 15-29 CKD 5 Kidney failure <15 Note: (go live 2024) the eGFR calculation was updated to the 2020 CKD-EPI creatinine equation without a race factor to calculate the eGFR results. Globulin 3.3 G/dL Normal 2.7 - 4.4 G/dL AO ADM SS Glucose [Mass/Vol] 101 mg/dL Normal 83 - 110 mg/dL AO ADM SS Hematocrit (Bld) [Volume fraction] 43.6 % Normal 40.0 - 52.0 % AO Workflow SS Hemoglobin (Bld) [Mass/Vol] 14.7 G/dL Normal 13.0 - 17.5 G/dL AO Workflow SS Lymphocytes (Bld) [#/Vol] 1.2 103/mcL Normal 0.9 - 4.3 10^3/mcL AO Workflow SS Lymphocytes/100 WBC (Bld) 22.2 % Normal 20.0 - 40.0 % AO Workflow SS MCH (RBC) [Entitic mass] 29.2 pg Normal 27.0 - 33.0 pg AO Workflow SS MCHC 33.7 G/dL Normal 32.0 - 36.0 G/dL AO Workflow SS MCV (RBC) [Entitic vol] 86.9 fL Normal 81.0 - 100.0 fL AO Workflow SS Monocytes (Bld) [#/Vol] 0.5 103/mcL Normal 0.1 - 1.4 10^3/mcL AO Workflow SS Monocytes/100 WBC (Bld) 9.5 % Normal 2.0 - 13.0 % AO Workflow SS Neutrophils (Bld) [#/Vol] 3.4 103/mcL Normal 2.3 - 8.1 10^3/mcL AO Workflow SS Neutrophils/100 WBC (Bld) 62.1 % Normal 50.0 - 75.0 % AO Workflow SS Platelet mean volume (Bld) [Entitic vol] 8.9 fL Normal 6.4 - 10.5 fL AO Workflow SS Platelets (Bld) [#/Vol] 166 103/mcL Normal 150 - 450 10^3/mcL AO Workflow SS Potassium [Moles/Vol] 4.5 mmol/L Normal 3.5 - 5.1 mmol/L AO ADM SS Prostate specific Ag [Mass/Vol] 6.55 ng/mL High 0.00 - 4.00 ng/mL AO ADM SS Protein [Mass/Vol] 6.9 G/dL Normal 6.4 - 8.2 G/dL AO ADM SS RBC (Bld) [#/Vol] 5.02 106/mcL Normal 4.50 - 6.0 0 10^6/mcL AO Workflow SS Sodium [Moles/Vol] 139 mmol/L Normal 136 - 145 mmol/L AO ADM SS TSH Qn 2.97 m[IU]/L Normal 0.36 - 3.74 mcIU/mL AO ADM SS Urea nitrogen [Mass/Vol] 17 mg/dL Normal 7 - 18 mg/dL AO ADM SS Urea nitrogen/Creatinine [Mass ratio] 18 ratio Normal 7 - 27 ratio AO ADM SS WBC (Bld) [#/Vol] 5.4 103/mcL Normal 4.5 - 10.8 10^3/mcL AO Workflow SS LABORATORYOrdered By: Jessa Blackmon on 09-13-2024 Cholesterol [Mass/Vol] 135 mg/dL Normal 0 - 200 mg/dL AO ADM SS Comment on above: Interpretive Data: C holesterol Reference Interval: Less than 200 Desirable 200-239 Borderline high risk 240 and above High risk Cholesterol in HDL [Mass/Vol] 46 mg/dL Normal 40 - 60 mg/dL AO ADM SS Cholesterol in LDL [Mass/Vol] 71 mg/dL Normal 0 - 130 mg/dL AO ADM SS Triglyceride [Mass/Vol] 90 mg/dL Normal 0 - 150 mg/dL AO ADM SS Comment on above: Interpretive Data: T riglyceride Reference Interval: Less than 150 Normal 150-199 Borderline high risk 200-499 High risk 500 or higher Very high risk LIPIDon 09-13-2024 Cholesterol [Mass/Vol] 135 mg/dL Normal 0-200 [facility] Comment on above: Result Comment: Chol esterol Reference Interval: Less than 200 Desirable 200-239 Borderline high risk 240 and above High risk Performed By: #### P SA, TSHR, LIPID, CMP, GFR, ANEU, CBC, VIDH, ADIFF #### [place] [address] [place], [place] [address] Cholesterol in HDL [Mass/Vol] 46 mg/dL Normal 40-60 [facility] Comment on above: Performed By: #### P SA, TSHR, LIPID, CMP, GFR, ANEU, CBC, VIDH, ADIFF #### [address] [address] Cholesterol in LDL [Mass/Vol] 71 mg/dL Normal 0-130 [facility] Comment on above: Performed By: #### P SA, TSHR, LIPID, CMP, GFR, ANEU, CBC, VIDH, ADIFF #### [address] [address] Triglyceride [Mass/Vol] 90 mg/dL Normal 0-150 [facility] Comment on above: Result Comment: Trig lyceride Reference Interval: Less than 150 Normal 150-199 Borderline high risk 200-499 High risk 500 or higher Very high risk Performed By: #### P SA, TSHR, LIPID, CMP, GFR, ANEU, CBC, VIDH, ADIFF #### [address] [address] PSAon 09-13-2024 Prostate Specific Antigen 6.55 ng/mL High 0.00-4.00 [facility] Comment on above: Performed By: #### P SA, TSHR, LIPID, CMP, GFR, ANEU, CBC, VIDH, ADIFF #### [address] [address] TSHRon 09-13-2024 TSH Qn 2.97 m[IU]/L Normal 0.36-3.74 [facility] Comment on above: Performed By: #### P SA, TSHR, LIPID, CMP, GFR, ANEU, CBC, VIDH, ADIFF #### [address] [address] VIDHon 09-13-2024 Vit. D 25-Hydroxy 38.1 ng/mL Normal [facility] Comment on above: Result Comment: Inte rpretive Values Based on Total 25(OH) Vitamin D: Deficient <20 ng/mL Insufficient 20 - <30 ng/mL Sufficient 30-100 ng/mL Performed By: #### P SA, TSHR, LIPID, CMP, GFR, ANEU, CBC, VIDH, ADIFF #### [address] [address] Cardiology Visit Reporton Cardiology Visit Report [facility] [address] [place] [address] OFFICE VISIT Date of Service: 06/13/24 MR#: [id number] Acct: [id number] Name: EDMUNDO BROWN Rep #: [id number] : 1935 Provider: DIETER de paz Age/Sex: 88/M Location: [facility] Status: Signed HPI HPI History of Present Illness Surgical H P: Yes Details: EDMUNDO BROWN, is a 88 y/o gentleman who presents to the office today to review the results of a 14- day event monitor. He has a history of hypertension as well as bradycardia.??? He remains fairly active.??? You do remember that in 2013 he was thought to have an irregular heartbeat and underwent a 48-hour Holter monitor which demonstrated predominantly sinus rhythm with heart rates varying between 45 and 113 bpm and an average heart rate of 61 bpm in sinus rhythm with occasional premature ventricular complexes.??? He did well in the interim and then in 2016 had another Holter monitor performed for reasons that are not entirely clear.??? It did demonstrate that he had predominantly atrial fibrillation with an average heart rate of 94 bpm with rare bursts of narrow supraventricular tachycardia.? His echocardiogram in June 2017 demonstrated preserved ejection fraction of 60%, moderate LVH.??? A stress test demonstrated normal sinus rhythm, no evidence of ischemia and excellent chronotropic response.??? He underwent a long-term Holter from January 03 to January 16 of this year, which demonstrated sinus rhythm with frequent supraventricular ectopy. His maximum heart rate was recorded at 109 bpm, minimum heart rate recorded at 20 bpm, and his average heart rate was noted to be 37 bpm. During this study there were 514 pauses, with the longest being 8.6 seconds at 10 3 in the morning. Ventricular ectopy 2%, supraventricular ectopy 9%, and 0 atrial fibrillation. This was reviewed with Dr. Hutchison. He will undergo a permanent cardiac pacemaker. He denies chest, arm, jaw, or neck discomfort. He denies palpitations. He denies bilateral lower extremity edema. He denies claudication. He denies shortness of breath with activity, shortness of breath at rest, orthopnea, or PND. He denies chronic cough. He denies significant, sudden weight gain. He denies lightheadedness, dizziness, near-syncope, or syncope. He denies blood in urine, blood in stool, or epistaxis. He denies fever with chills. He denies myalgia. He denies fatigue. His exercise level has remained stable. 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 Required: No Accompanied by: Self Is patient in pain?: No Allergies niacin Allergy (Verified 06/13/24 09:29) Rash warfarin Adverse Reaction (Severe, Verified 06/13/24 09:29) severe nosebleeds, labile INR Medications ???Medication ???Instructions ???Recorded ???Confirmed ???Type multivitamin with folic acid 400 1 tab PO DAILY 04/29/13 06/13/24 H istory mcg tablet saw palmetto 500 mg capsule 900 mg PO DAILY 04/29/13 06/13/24 History aspirin 81 mg tablet,delayed 81 mg PO QDAY 09/05/17 06/13/24 Hi story release (Adult Low Dose Aspirin) latanoprost 0.005 % eye drops 1 drp ophthalmic (eye) DAILY 09/0306/13/24 History amlodipine 10 mg tablet 10 mg PO DAILY #90 tabs 10/04/23 0 06/13/24 Rx losartan 100 mg tablet 100 mg PO QDAY #90 tabs 10/04/23 0 06/13/24 Rx rosuvastatin 10 mg tablet 10 mg PO DAILY #90 tabs 10/04/23 0 06/13/24 Rx levothyroxine 25 mcg capsule 50 mcg PO DAILY 12/05/23 06/13/24 History hydrochlorothiazide 25 mg tablet 25 mg PO DAILY #90 tabs 01/09/24 0 06/13/24 Rx apixaban 5 mg tablet (Eliquis) 5 mg PO BID #30 tabs 04/14/2405/18 Rx omega-3 fatty acids 1,000 mg 1,000 mg PO QDAY 06/13/24 06/13/24 History capsule Have you fallen in the past year?: No PFSH Medical History Presence of cardiac pacemaker High degree atrioventricular block Longstanding persistent atrial fibrillation Left ventricular hypertrophy Plantar fasciitis Essential (primary) hypertension Paroxysmal atrial fibrillation (07/03/16) Bradycardia Osteoarthritis Hyperlipidemia Surgical History Hx of bilateral cataract extraction ( 06/2022) History of left knee replacement History of arthroscopy of left knee H/O left knee surgery Family History Mother Cancer lung cancer Father Heart disease chf Social History ... Normal [facility] Pacemaker Checkon 03-10-2024 Pacemaker Check [facility] [address] [place] [address] Pacemaker Check Date of Service: 03/10/24 1256 MR#: [id number] Acct: [id number] Name: EDMUNDO BROWN Rep #: [id number] : 1935 From: Christine Metzger Age/Sex: 88/M Location: [facility] Status: Signed Billing Codes PM Device Codes: 95904 PM Dev Prog Eval, Dual Assessment and Plan Assessment and Plan (1) Presence of cardiac pacemaker: Status: Acute (2) High degree atrioventricular block: Status: Chronic (3) Longstanding persistent atrial fibrillation: Status: Inactive 03/10/24 1257 Date Christine Degroot Signature: Date (if applicable) CC: Normal [facility] LABORATORYOrdered By: Ashlee Grace on 03-06-2024 Albumin DL <= 20 mg/L (U) [Mass/Vol] 778 mcg/dL Invalid Interpretation Code AO ADM SS Albumin/Creatinine DL <= 20 mg/L (U) [Mass ratio] 10 mcg/mg Normal 0 - 30 mcg/mg AO ADM SS Creatinine (U) [Mass/Vol] 74.3 mg/dL Normal 39.0 - 259.0 mg/dL AO ADM SS MALBRon 03-06-2024 U Creatinine 74.3 mg/dL Normal 39.0-259.0 [facility] Comment on above: Performed By: #### M ALBR #### [address] [address] U Microalb 778 mcg/dL Normal [facility] Comment on above: Performed By: #### M ALBR #### [address] [address] U Ratio Alb/Cre 10 mcg/mg Normal 0-30 [facility] Comment on above: Performed By: #### M ALBR #### [address] [address] .Auto Diffon 02-21-2024 Basophil, Absolute 0.0 10 3/mcL Normal 0.0-0.2 [facility] Comment on above: Performed By: #### P SA, TSHR, LIPID, CMP, GFR, ANEU, CBC, VIDH, ADIFF #### [address] [address] Basophils/100 WBC (Bld) 0.9 % Normal 0.0-2.5 [facility] Comment on above: Performed By: #### P SA, TSHR, LIPID, CMP, GFR, ANEU, CBC, VIDH, ADIFF #### [address] [address] Eosinophil, Absolute 0.4 10 3/mcL Normal 0.0-0.7 [facility] Comment on above: Performed By: #### P SA, TSHR, LIPID, CMP, GFR, ANEU, CBC, VIDH, ADIFF #### [address] [address] Eosinophils/100 WBC (Bld) 7.3 % High 0.0-7.0 [facility] Comment on above: Performed By: #### P SA, TSHR, LIPID, CMP, GFR, ANEU, CBC, VIDH, ADIFF #### [address] [address] Lymphocyte, Absolute 1.5 10 3/mcL Normal 0.9-4.3 [facility] Comment on above: Performed By: #### P SA, TSHR, LIPID, CMP, GFR, ANEU, CBC, VIDH, ADIFF #### [address] [address] Lymphocytes/100 WBC (Bld) 29.8 % Normal 20.0-40.0 [facility] Comment on above: Performed By: #### P SA, TSHR, LIPID, CMP, GFR, ANEU, CBC, VIDH, ADIFF #### [address] [address] Monocyte, Absolute 0.5 10 3/mcL Normal 0.1-1.4 [facility] Comment on above: Performed By: #### P SA, TSHR, LIPID, CMP, GFR, ANEU, CBC, VIDH, ADIFF #### [address] [address] Monocytes/100 WBC (Bld) 9.5 % Normal 2.0-13.0 [facility] Comment on above: Performed By: #### P SA, TSHR, LIPID, CMP, GFR, ANEU, CBC, VIDH, ADIFF #### [address] [address] Neutrophils/100 WBC (Bld) 52.5 % Normal 50.0-75.0 [facility] Comment on above: Performed By: #### P SA, TSHR, LIPID, CMP, GFR, ANEU, CBC, VIDH, ADIFF #### [address] [address] .NEUABSon 02-21-2024 Neutrophil, Absolute 2.6 10 3/mcL Normal 2.3-8.1 [facility] Comment on above: Performed By: #### P SA, TSHR, LIPID, CMP, GFR, ANEU, CBC, VIDH, ADIFF #### [address] [address] CBCon 02-21-2024 Erythrocyte distribution width (RBC) [Ratio] 13.3 % Normal 11.5-15.5 [facility] Comment on above: Performed By: #### P SA, TSHR, LIPID, CMP, GFR, ANEU, CBC, VIDH, ADIFF #### [place] [address] Hematocrit (Bld) [Volume fraction] 44.8 % Normal 40.0-52.0 [facility] Comment on above: Performed By: #### P SA, TSHR, LIPID, CMP, GFR, ANEU, CBC, VIDH, ADIFF #### [place] [address] Hgb 14.9 G/dL Normal 13.0-17.5 [facility] Comment on above: Performed By: #### P SA, TSHR, LIPID, CMP, GFR, ANEU, CBC, VIDH, ADIFF #### [address] [address] MCH (RBC) [Entitic mass] 29.3 pg Normal 27.0-33.0 [facility] Comment on above: Performed By: #### P SA, TSHR, LIPID, CMP, GFR, ANEU, CBC, VIDH, ADIFF #### [place] [address] MCHC 33.2 G/dL Normal 32.0-36.0 [facility] Comment on above: Performed By: #### P SA, TSHR, LIPID, CMP, GFR, ANEU, CBC, VIDH, ADIFF #### [place] [id number] MCV (RBC) [Entitic vol] 88.2 fL Normal 81.0-100.0 [facility] Comment on above: Performed By: #### P SA, TSHR, LIPID, CMP, GFR, ANEU, CBC, VIDH, ADIFF #### [address] [address] Platelet 185 10 3/mcL Normal 150-450 [facility] Comment on above: Performed By: #### P SA, TSHR, LIPID, CMP, GFR, ANEU, CBC, VIDH, ADIFF #### [place] [id number] Platelet mean volume (Bld) [Entitic vol] 9.3 fL Normal 6.4-10.5 [facility] Comment on above: Performed By: #### P SA, TSHR, LIPID, CMP, GFR, ANEU, CBC, VIDH, ADIFF #### [place] [id number] RBC 5.08 10 6/mcL Normal 4.50-6.00 [facility] Comment on above: Performed By: #### P SA, TSHR, LIPID, CMP, GFR, ANEU, CBC, VIDH, ADIFF #### [place] [address] WBC 5.0 10 3/mcL Normal 4.5-10.8 [facility] Comment on above: Performed By: #### P SA, TSHR, LIPID, CMP, GFR, ANEU, CBC, VIDH, ADIFF #### [place] [address] FT4on 02-21-2024 Free T4 [Mass/Vol] 0.93 ng/dL Normal 0.76-1.46 [facility] Comment on above: Performed By: #### P SA, TSHR, LIPID, CMP, GFR, ANEU, CBC, VIDH, ADIFF #### [place] [address] LABORATORYOrdered By: SYSTEM SYSTEM on 02-21-2024 Basophils (Bld) [#/Vol] 0.0 103/mcL Normal 0.0 - 0.2 10^3/mcL AO Workflow SS Basophils/100 WBC (Bld) 0.9 % Normal 0.0 - 2.5 % AO Workflow SS Eosinophil, Absolute 0.4 103/mcL Normal 0.0 - 0 .7 10^3/mcL AO Workflow SS Eosinophils/100 WBC (Bld) 7.3 % High 0.0 - 7.0 % AO Workflow SS Erythrocyte distribution width (RBC) [Ratio] 13.3 % Normal 11.5 - 15.5 % AO Workflow SS Free T4 [Mass/Vol] 0.93 ng/dL Normal 0.76 - 1. 46 ng/dL AO ADM SS Hematocrit (Bld) [Volume fraction] 44.8 % Normal 40.0 - 52.0 % AO Workflow SS Hemoglobin (Bld) [Mass/Vol] 14.9 G/dL Normal 13.0 - 17.5 G/dL AO Workflow SS Lymphocytes (Bld) [#/Vol] 1.5 103/mcL Normal 0.9 - 4.3 10^3/mcL AO Workflow SS Lymphocytes/100 WBC (Bld) 29.8 % Normal 20.0 - 40.0 % AO Workflow SS MCH (RBC) [Entitic mass] 29.3 pg Normal 27.0 - 33.0 pg AO Workflow SS MCHC 33.2 G/dL Normal 32.0 - 36.0 G/dL AO Workflow SS MCV (RBC) [Entitic vol] 88.2 fL Normal 81.0 - 100.0 fL AO Workflow SS Monocytes (Bld) [#/Vol] 0.5 103/mcL Normal 0.1 - 1.4 10^3/mcL AO Workflow SS Monocytes/100 WBC (Bld) 9.5 % Normal 2.0 - 13.0 % AO Workflow SS Neutrophils (Bld) [#/Vol] 2.6 103/mcL Normal 2.3 - 8.1 10^3/mcL AO Workflow SS Neutrophils/100 WBC (Bld) 52.5 % Normal 50.0 - 75.0 % AO Workflow SS Platelet mean volume (Bld) [Entitic vol] 9.3 fL Normal 6.4 - 10.5 fL AO Workflow SS Platelets (Bld) [#/Vol] 185 103/mcL Normal 150 - 450 10^3/mcL AO Workflow SS RBC (Bld) [#/Vol] 5.08 106/mcL Normal 4.50 - 6.0 0 10^6/mcL AO Workflow SS TSH Qn 1.99 m[IU]/L Normal 0.36 - 3.74 mcIU/mL AO ADM SS WBC (Bld) [#/Vol] 5.0 103/mcL Normal 4.5 - 10.8 10^3/mcL AO Workflow SS TSHon 02-21-2024 TSH Qn 1.99 m[IU]/L Normal 0.36-3.74 [facility] Comment on above: Performed By: #### P SA, TSHR, LIPID, CMP, GFR, ANEU, CBC, VIDH, ADIFF #### [address] [address] .GFRon 11-21-2023 GFR Non- 66 ml/min/1.73sqm Normal [facility] [place] Comment on above: Result Comment: GFR Population mean for , Non- Americans Ages 20-29 = 116 mL/min/1.73 sq.m. Ages 30-39 = 107 mL/min/1.73 sq.m. Ages 40-49 = 99 mL/min/1.73 sq.m. Ages 50-59 = 93 mL/min/1.73 sq.m. Ages 60-69 = 85 mL/min/1.73 sq.m. Ages 70+ = 75 mL/min/1.73 sq.m. Chronic Kidney Disease: Less than 60 mL/min/1.73 square meters End Stage Renal Disease: Less than 15 mL/min/1.73 square meters Performed By: #### G FR, CMP, TSHR, FT4 #### [address] [address] GFR 79 ml/min/1.73sqm Normal [facility] ([place]) Comment on above: Result Comment: GFR Population mean for , Non- Americans Ages 20-29 = 116 mL/min/1.73 sq.m. Ages 30-39 = 107 mL/min/1.73 sq.m. Ages 40-49 = 99 mL/min/1.73 sq.m. Ages 50-59 = 93 mL/min/1.73 sq.m. Ages 60-69 = 85 mL/min/1.73 sq.m. Ages 70+ = 75 mL/min/1.73 sq.m. Chronic Kidney Disease: Less than 60 mL/min/1.73 square meters End Stage Renal Disease: Less than 15 mL/min/1.73 square meters Performed By: #### G FR, CMP, TSHR, FT4 #### [address] [address] CMPon 11-21-2023 Albumin Level 3.7 G/dL Normal 3.4-4.8 [facility] ([place] Comment on above: Performed By: #### G FR, CMP, TSHR, FT4 #### [address] [address] Albumin/Globulin [Mass ratio] 1.3 {ratio} Normal 1.1-2.5 [facility] [place] Comment on above: Performed By: #### G FR, CMP, TSHR, FT4 #### [address] [address] ALP [Catalytic activity/Vol] 48 U/L Normal 40-135 [facility] ([place] Comment on above: Performed By: #### G FR, CMP, TSHR, FT4 #### [address] [address] ALT [Catalytic activity/Vol] 23 U/L Normal 16-63 [facility] [place] Comment on above: Performed By: #### G FR, CMP, TSHR, FT4 #### [address] [address] AST [Catalytic activity/Vol] 22 U/L Normal 10-40 [facility] [place] Comment on above: Performed By: #### G FR, CMP, TSHR, FT4 #### [address] [address] Bili Total 0.9 mg/dL Normal 0.2-1.0 [facility] ([place] Comment on above: Result Comment: Use of this assay is not recommended for patients undergoing treatment with eltrombopag due to the potential for falsely elevated results. Performed By: #### G FR, CMP, TSHR, FT4 #### [address] [address] BUN/Creatinine Ratio 26 ratio Normal 7-27 [facility] ([place] Comment on above: Performed By: #### G FR, CMP, TSHR, FT4 #### [address] [address] Calcium [Mass/Vol] 9.3 mg/dL Normal 8.4-10.2 [facility] [place] Comment on above: Performed By: #### G FR, CMP, TSHR, FT4 #### [address] [address] Chloride [Moles/Vol] 102 mmol/L Normal 98-107 [facility] [place] Comment on above: Performed By: #### G FR, CMP, TSHR, FT4 #### [address] [address] CO2 [Moles/Vol] 32 mmol/L High 23-31 [facility] [place] Comment on above: Performed By: #### G FR, CMP, TSHR, FT4 #### [address] [address] Creatinine [Mass/Vol] 1.07 mg/dL Normal 0.70-1.30 [facility] ([place] Comment on above: Performed By: #### G FR, CMP, TSHR, FT4 #### [address] [address] Electrolyte Balance 6.0 mEq/L Normal 4.0-15.0 [facility] ([place] Comment on above: Performed By: #### G FR, CMP, TSHR, FT4 #### [address] [address] Globulin 2.8 G/dL Normal [facility] [place] Comment on above: Performed By: #### G FR, CMP, TSHR, FT4 #### [address] [address] Glucose [Mass/Vol] 144 mg/dL High 83-110 [facility] [place] Comment on above: Performed By: #### G FR, CMP, TSHR, FT4 #### [address] [address] Potassium [Moles/Vol] 4.1 mmol/L Normal 3.5-5.1 [facility] [place] Comment on above: Performed By: #### G FR, CMP, TSHR, FT4 #### [place] [address] Sodium [Moles/Vol] 140 mmol/L Normal 136-145 [facility] [place] Comment on above: Performed By: #### G FR, CMP, TSHR, FT4 #### [address] [address] Total Protein 6.5 G/dL Normal 6.4-8.2 [facility]) Comment on above: Performed By: #### G FR, CMP, TSHR, FT4 #### [address] [address] Urea nitrogen [Mass/Vol] 28 mg/dL High 7-18 [facility] [place] Comment on above: Performed By: #### G FR, CMP, TSHR, FT4 #### [address] [address] FT4on 11-21-2023 Free T4 [Mass/Vol] 0.83 ng/dL Normal 0.76-1.46 [facility] ([place] Comment on above: Order Comment: Order ed by Discern Performed By: #### G FR, CMP, TSHR, FT4 #### [address] [address] TSHRon 11-21-2023 TSH Qn 4.04 m[IU]/L High 0.36-3.74 [facility] ([place] Comment on above: Performed By: #### G FR, CMP, TSHR, FT4 #### [address] [address] No Panel InformationOrdered By: Sylvester Cunha on 07-09-2023 Percent Free Prostate Specific Ag 2.25 ng/mL N/A [facility] Comment on above: Buzz ECLIA methodol ogy. Prostate Specific Ag, Ultra-Sensitv 6.110 ng/mL 0.000-4.000 [facility] Comment on above: Buzz ECLIA methodol ogy.According to the [employer], Serum PSAshould decrease and remain at undetectable levels afterradical prostatectomy. The AUA defines biochemicalrecurrence as an initial PSA value 0.200 ng/mL or greaterfollowed by a subsequent confirmatory PSA value 0.200 ng/mLor greater. Values obtained with different assay methods orkits cannot be used interchangeably. Results cannot beinterpreted as absolute evidence of the presence or absenceof malignant disease. Serum or plasma free prostat e specific antigen/total prostate specific antigen ratioOrdered By: Sylvester Cunha on 07-09-2023 Free PSA/Total PSA [Mass fraction] 36.8 % . [facility] Comment on above: The table below list s the probability of prostate cancer formen with non-suspicious CONNIE results and total PSA between4 and 10 ng/mL, by patient age (Bayron et al, GEORGINA 1998,[id number]). % Free PSA 50-64 yr 65-75 yr 0.00-10.00% 56% 55% 10.01-15.00% 24% 35% 15.01-20.00% 17% 23% 20.01-25.00% 10% 20% >25.00% 5% 9%Please note: Bayron et al did not make specific recommendations regarding the use of percent free PSA for any other population of men.Performed at: [facility] [id number] Director: Milton Alonso PhD, Phone: [phone] Basophil percentageOrdered B y: Baylee Lara on 05-11-2023 Bilirubin [Mass/Vol] 1.00 mg/dL 0.20-1.00 [facility] Comment on above: For patients on eltr ombopag therapy, use of Dimension [place] TBIL is not recommended. Cholesterol [Mass/Vol] 179 mg/dL <200 [facility] Comment on above: <200 mg/dL Desirable 200-240 mg/dL Borderline >240 mg/dL High Risk Protein [Mass/Vol] 7.2 g/dL 6.4-8.2 [facility] Triglyceride [Mass/Vol] 156 mg/dL <199 [facility] Comment on above: The drugs N-Acetylcy steine and Metamizole may falsely depress this assay.Serum Triglycerides Reference Interval Normal <150 mg/dL Borderline high 150 - 199 mg/dL High 200 - 499 mg/dL Very High > or = 500 mg/dL Direct bilirubinOrdered By: Baylee Lara on 05-11-2023 Bilirubin.direct [Mass/Vol] 0.26 mg/dL 0.00-0.30 [facility] High density lipoprotein (HD L) measurementOrdered By: Baylee Lara on 05-11-2023 Cholesterol in HDL (Body fld) [Mass/Vol] 49 mg/dL >40 [facility] Comment on above: The drugs N-Acetylcy steine and Metamizole may falsely depress this assay. Reference Range HDL <40 mg/dL Low HDL Cholesterol HDL >or= 60 mg/dL High HDL Cholesterol Laboratory - Chemistry and C hemistry - challengeOrdered By: Baylee Lara on 05-11-2023 ALP [Catalytic activity/Vol] 47 U/L 45-117 [facility] ALT [Catalytic activity/Vol] 28 U/L 16-61 [facility] Globulin (S) [Mass/Vol] 3.5 g/dL 2.2-4.2 [facility] Low density lipoprotein (LDL ) cholesterol measurementOrdered By: Baylee Lara on 05-11-2023 Cholesterol in LDL (Body fld) [Moles/Vol] 99 mg/dL 0-130 [facility] Thin prep Papanicolaou smear with manual screeningOrdered By: Baylee Lara on 05-11-2023 Thin prep Papanicolaou smear with manual screening 3.7 g/dL 3.2-5.0 [facility] Thin prep Papanicolaou smear with manual screening 26 U/L 15-37 [facility] Very low density lipoprotein (VLDL) cholesterol measurementOrdered By: Baylee Lara on 05-11-2023 Cholesterol in VLDL Calc [Moles/Vol] 31 mg/dL 5-40 [facility] U Creatinine 347.0 mg/dL High 39.0-259.0 [facility] ([place] Comment on above: Performed By: #### G FR, CMP, TSHR, FT4 #### [address] [address] U Microalb [address] mcg/dL Normal [facility] ([place] Comment on above: Performed By: #### G FR, CMP, TSHR, FT4 #### [address] [address] U Ratio Alb/Cre 46 mcg/mg High 0-30 [facility] ([place] Comment on above: Performed By: #### G FR, CMP, TSHR, FT4 #### [address] [address] .GFRon 03-15-2023 GFR Non- 58 ml/min/1.73sqm Normal [facility] ([place] Comment on above: Result Comment: GFR Population mean for , Non- Americans Ages 20-29 = 116 mL/min/1.73 sq.m. Ages 30-39 = 107 mL/min/1.73 sq.m. Ages 40-49 = 99 mL/min/1.73 sq.m. Ages 50-59 = 93 mL/min/1.73 sq.m. Ages 60-69 = 85 mL/min/1.73 sq.m. Ages 70+ = 75 mL/min/1.73 sq.m. Chronic Kidney Disease: Less than 60 mL/min/1.73 square meters End Stage Renal Disease: Less than 15 mL/min/1.73 square meters Performed By: #### G FR, CMP, TSHR, FT4 #### [address] [address] GFR 70 ml/min/1.73sqm Normal [facility] ([place] Comment on above: Result Comment: GFR Population mean for , Non- Americans Ages 20-29 = 116 mL/min/1.73 sq.m. Ages 30-39 = 107 mL/min/1.73 sq.m. Ages 40-49 = 99 mL/min/1.73 sq.m. Ages 50-59 = 93 mL/min/1.73 sq.m. Ages 60-69 = 85 mL/min/1.73 sq.m. Ages 70+ = 75 mL/min/1.73 sq.m. Chronic Kidney Disease: Less than 60 mL/min/1.73 square meters End Stage Renal Disease: Less than 15 mL/min/1.73 square meters Performed By: #### G FR, CMP, TSHR, FT4 #### [address] [address] CMPon 03-15-2023 Albumin Level 4.0 G/dL Normal 3.4-4.8 [facility] ([place] Comment on above: Performed By: #### G FR, CMP, TSHR, FT4 #### [address] [address] Albumin/Globulin [Mass ratio] 1.2 {ratio} Normal 1.1-2.5 [facility] ([place] Comment on above: Performed By: #### G FR, CMP, TSHR, FT4 #### [address] [address] ALP [Catalytic activity/Vol] 50 U/L Normal 40-135 [facility] [place] Comment on above: Performed By: #### G FR, CMP, TSHR, FT4 #### [address] [address] ALT [Catalytic activity/Vol] 22 U/L Normal 16-63 [facility] [place] Comment on above: Performed By: #### G FR, CMP, TSHR, FT4 #### [address] [address] AST [Catalytic activity/Vol] 25 U/L Normal 10-40 [facility] [place] Comment on above: Performed By: #### G FR, CMP, TSHR, FT4 #### [address] [address] Bili Total 1.1 mg/dL High 0.2-1.0 [facility] ([place] Comment on above: Result Comment: Use of this assay is not recommended for patients undergoing treatment with eltrombopag due to the potential for falsely elevated results. Performed By: #### G FR, CMP, TSHR, FT4 #### [address] [address] BUN/Creatinine Ratio 18 ratio Normal 7-27 [facility] [place] Comment on above: Performed By: #### G FR, CMP, TSHR, FT4 #### [address] [address] Calcium [Mass/Vol] 9.8 mg/dL Normal 8.4-10.2 [facility] [place] Comment on above: Performed By: #### G FR, CMP, TSHR, FT4 #### [address] [address] Chloride [Moles/Vol] 100 mmol/L Normal 98-107 [facility] [place] Comment on above: Performed By: #### G FR, CMP, TSHR, FT4 #### [address] [address] CO2 [Moles/Vol] 28 mmol/L Normal 23-31 [facility] [place] Comment on above: Performed By: #### G FR, CMP, TSHR, FT4 #### [address] [address] Creatinine [Mass/Vol] 1.20 mg/dL Normal 0.70-1.30 [facility] [place] Comment on above: Performed By: #### G FR, CMP, TSHR, FT4 #### [address] [address] Electrolyte Balance 13.0 mEq/L Normal 4.0-15.0 [facility] [place] Comment on above: Performed By: #### G FR, CMP, TSHR, FT4 #### [address] [address] Globulin 3.4 G/dL Normal [facility] ([place] Comment on above: Performed By: #### G FR, CMP, TSHR, FT4 #### [address] [address] Glucose [Mass/Vol] 104 mg/dL Normal 83-110 [facility] [place] Comment on above: Performed By: #### G FR, CMP, TSHR, FT4 #### [address] [address] Potassium [Moles/Vol] 4.2 mmol/L Normal 3.5-5.1 [facility] [place] Comment on above: Performed By: #### G FR, CMP, TSHR, FT4 #### [address] [address] Sodium [Moles/Vol] 141 mmol/L Normal 136-145 [facility] [place] Comment on above: Performed By: #### G FR, CMP, TSHR, FT4 #### [address] [address] Total Protein 7.4 G/dL Normal 6.4-8.2 [facility] ([place] Comment on above: Performed By: #### G FR, CMP, TSHR, FT4 #### [address] [address] Urea nitrogen [Mass/Vol] 21 mg/dL High 7-18 [facility] [place] Comment on above: Performed By: #### G FR, CMP, TSHR, FT4 #### [address] [address] FT3on 03-15-2023 Free T3 [Mass/Vol] 3.05 pg/mL Normal 2.30-4.00 [facility] ([place] Comment on above: Performed By: #### G FR, CMP, TSHR, FT4 #### [address] [address] FT4on 03-15-2023 Free T4 [Mass/Vol] 0.96 ng/dL Normal 0.76-1.46 [facility] ([place] Comment on above: Performed By: #### G FR, CMP, TSHR, FT4 #### [address] [address] TSHon 03-15-2023 TSH Qn 3.72 m[IU]/L Normal 0.36-3.74 [facility] ([place] Comment on above: Performed By: #### G FR, CMP, TSHR, FT4 #### [address] [address] .Auto Diffon 12-01-2022 Basophil, Absolute 0.0 10 3/mcL Normal 0.0-0.2 [facility] ([place] Comment on above: Performed By: #### A ANNAMARIE, APTT, ADIFF, PRO, MDW, CBC #### [address] [address] Basophils/100 WBC (Bld) 0.7 % Normal 0.0-2.5 [facility] ([place] Comment on above: Performed By: #### A ANNAMARIE, APTT, ADIFF, PRO, MDW, CBC #### [address] [address] Eosinophil, Absolute 0.3 10 3/mcL Normal 0.0-0.4 [facility] ([place] Comment on above: Performed By: #### A ANNAMARIE, APTT, ADIFF, PRO, MDW, CBC #### [address] [address] Eosinophils/100 WBC (Bld) 4.0 % Normal 0.0-7.0 [facility] ([place] Comment on above: Performed By: #### A ANNAMARIE, APTT, ADIFF, PRO, MDW, CBC #### [address] [address] Lymphocyte, Absolute 1.4 10 3/mcL Normal 0.8-3.9 [facility] ([place] Comment on above: Performed By: #### A ANNAMARIE, APTT, ADIFF, PRO, MDW, CBC #### [address] [address] Lymphocytes/100 WBC (Bld) 21.6 % Normal 10.0-50.0 [facility] ([place] Comment on above: Performed By: #### A ANNAMARIE, APTT, ADIFF, PRO, MDW, CBC #### [address] [address] Monocyte, Absolute 0.5 10 3/mcL Normal 0.2-1.0 [facility] ([place] Comment on above: Performed By: #### A ANNAMARIE, APTT, ADIFF, PRO, MDW, CBC #### [address] [address] Monocytes/100 WBC (Bld) 7.1 % Normal 1.7-13.0 [facility] ([place] Comment on above: Performed By: #### A ANNAMARIE, APTT, ADIFF, PRO, MDW, CBC #### [address] [address] Neutrophils/100 WBC (Bld) 66.6 % Normal 37.0-80.0 [facility] ([place] Comment on above: Performed By: #### A ANNAMARIE, APTT, ADIFF, PRO, MDW, CBC #### [address] [address] .MDWon 12-01-2022 Monocyte Distribution Width 16.47 Normal 0.00-20.00 [facility] ([place] Comment on above: Result Comment: For ED adult patients suspected of sepsis, MDW<=20.0 does not rule out sepsis or risk of sepsis Performed By: #### A ANNAMARIE, APTT, ADIFF, PRO, MDW, CBC #### [address] [address] .NEUABSon 12-01-2022 Neutrophil, Absolute 4.5 10 3/mcL Normal 2.9-6.2 [facility] ([place] Comment on above: Performed By: #### A ANNAMARIE, APTT, ADIFF, PRO, MDW, CBC #### [address] [address] APTTon 12-01-2022 aPTT Coag (Bld) [Time] 44.7 s High 25.0-35.0 [facility] ([place] Comment on above: Result Comment: For Heparin anticoagulation therapy, the recommended therapeutic range is: 50.6-87.4 seconds. Patients on heparin therapy may have an extreme result. Performed By: #### A ANNAMARIE, APTT, ADSTEPHANI PROANASTASIIA, CBC #### [place] [id number] Heparin dose (APTT) Coumadin PO Normal [facility] ([place] Comment on above: Performed By: #### A ANNAMARIE, APTT, ADIFF, PROANASTASIIA, CBC #### [place] [id number] CBCon 12-01-2022 Erythrocyte distribution width (RBC) [Ratio] 13.7 % Normal 11.5-14.5 [facility] ([place] Comment on above: Performed By: #### A ANNAMARIE, APTT, ADPRO STYLES MDW, CBC #### [place] [address] Hematocrit (Bld) [Volume fraction] 43.6 % Normal 42.0-52.0 [facility] ([place] Comment on above: Performed By: #### A ANNAMARIE, APTT, PRO MEIER MDW, CBC #### [place] [address] Hgb 14.5 G/dL Normal 14.0-18.0 [facility] ([place] Comment on above: Performed By: #### A ANNAMARIE, APTT, ADSTEPHANI, PROANASTASIIA, CBC #### [place] [address] MCH (RBC) [Entitic mass] 28.8 pg Normal 27.0-31.2 [facility] [place] Comment on above: Performed By: #### A ANNAMARIE, APTT, ADIFF, PROANASTASIIA, CBC #### [place] [address] MCHC 33.3 G/dL Normal 31.8-35.4 [facility] [place] Comment on above: Performed By: #### A ANNAMARIE, APTT, ADIFF, PROANASTASIIA, CBC #### [address] [address] MCV (RBC) [Entitic vol] 86.7 fL Normal 80.0-94.0 [facility] [place] Comment on above: Performed By: #### A ANNAMARIE, APTT, ADSTEPHANI, PROANASTASIIA, CBC #### [address] [address] Platelet 197 10 3/mcL Normal 130-400 [facility] [place] Comment on above: Performed By: #### A ANNAMARIE, APTT, ADSTEPHANI, PROANASTASIIA, CBC #### [address] [address] Platelet mean volume (Bld) [Entitic vol] 8.4 fL Normal 7.4-10.4 [facility] [place] Comment on above: Performed By: #### A ANNAMARIE, APTT, PRO MEIER MDW, CBC #### [address] [address] RBC 5.04 10 6/mcL Normal 4.04-6.13 [facility] [place] Comment on above: Performed By: #### A ANNAMARIE, APTT, PRO MEIER MDW, CBC #### [address] [address] WBC 6.7 10 3/mcL Normal 4.6-10.8 [facility] ([place] Comment on above: Performed By: #### A ANNAMARIE, APTT, ADPRO STYLES MDW, CBC #### [address] [address] LABORATORYOrdered By: Renata Hensley on 12-01-2022 aPTT Coag (PPP) [Time] 44.7 s Invalid Interpretation Code 25.0 - 35.0 seconds AO [facility] SS Comment on above: Interpretive Data: F or Heparin anticoagulation therapy, the recommended therapeutic range is: 50.6-87.4 seconds. Patients on heparin therapy may have an extreme result. Heparin dose (APTT) Coumadin PO (12/01/22 10:02 PM) Invalid Interpretation Code AO [facility] SS INR Coag (PPP) [Relative time] 4.2 {INR} Invalid Interpretation Code AO [facility] SS Comment on above: Interpretive Data: Chantal lang [employer] (CHEST, 1991, [id number]) recommended therapeutic range for oral anticoagulant therapy is: LOW RISK: Prophylaxis of venous thrombosis INR: 2.0-3.0 Treatment of pulmonary embolism 2.0-3.0 Prevention of systemic embolism 2.0-3.0 HIGH RISK: Mechanical prosthetic valves 2.5-3.5 PT Coag (PPP) [Time] 49.7 s Invalid Interpretation Code 9.1 - 14.2 seconds AO [facility] SS LABORATORYOrdered By: SYSTEM SYSTEM on 12-01-2022 Basophil, Absolute 0.0 103/mcL Invalid Interpretation Code 0.0 - 0.2 10^3/mcL AO Workflow SS Basophils/100 WBC (Bld) 0.7 % Invalid Interpretation Code 0.0 - 2.5 % AO Workflow SS Eosinophil, Absolute 0.3 103/mcL Invalid Interpretation Code 0.0 - 0.4 10^3/mcL AO Workflow SS Eosinophils/100 WBC (Bld) 4.0 % Invalid Interpretation Code 0.0 - 7.0 % AO Workflow SS Erythrocyte distribution width (RBC) [Ratio] 13.7 % Invalid Interpretation Code 11.5 - 14.5 % AO Workflow SS Hematocrit (Bld) [Volume fraction] 43.6 % Invalid Interpretation Code 42.0 - 52.0 % AO Workflow SS Hemoglobin (Bld) [Mass/Vol] 14.5 G/dL Invalid Interpretation Code 14.0 - 18.0 G/dL AO Workflow SS Lymphocyte, Absolute 1.4 103/mcL Invalid Interpretation Code 0.8 - 3.9 10^3/mcL AO Workflow SS Lymphocytes/100 WBC (Bld) 21.6 % Invalid Interpretation Code 10.0 - 50.0 % AO Workflow SS MCH (RBC) [Entitic mass] 28.8 pg Invalid Interpretation Code 27.0 - 31.2 pg AO Workflow SS MCHC 33.3 G/dL Invalid Interpretation Code 31.8 - 35.4 G/dL AO Workflow SS MCV (RBC) [Entitic vol] 86.7 fL Invalid Interpretation Code 80.0 - 94.0 fL AO Workflow SS Monocyte distribution width Auto (Bld) [Entitic vol] 16.47 1 Invalid Interpretation Code 0.00 - 20.00 AO Workflow SS Comment on above: Result Comment: For ED adult patients suspected of sepsis, MDW<=20.0 does not rule out sepsis or risk of sepsis Monocyte, Absolute 0.5 103/mcL Invalid Interpretation Code 0.2 - 1.0 10^3/mcL AO Workflow SS Monocytes/100 WBC (Bld) 7.1 % Invalid Interpretation Code 1.7 - 13.0 % AO Workflow SS Neutrophil, Absolute 4.5 103/mcL Invalid Interpretation Code 2.9 - 6.2 10^3/mcL AO Workflow SS Neutrophils/100 WBC (Bld) 66.6 % Invalid Interpretation Code 37.0 - 80.0 % AO Workflow SS Platelet mean volume (Bld) [Entitic vol] 8.4 fL Invalid Interpretation Code 7.4 - 10.4 fL AO Workflow SS Platelets (Bld) [#/Vol] 197 103/mcL Invalid Interpretation Code 130 - 400 10^3/mcL AO Workflow SS RBC (Bld) [#/Vol] 5.04 106/mcL Invalid Interpretation Code 4.04 - 6.13 10^6/mcL AO Workflow SS WBC (Bld) [#/Vol] 6.7 103/mcL Invalid Interpretation Code 4.6 - 10.8 10^3/mcL AO Workflow SS PROon 12-01-2022 PT Coag (PPP) [Time] 49.7 s High 9.1-14.2 [facility] ([place]) Comment on above: Performed By: #### A ANNAMARIE, APTT, ADIFF, PRO, MDW, CBC #### [address] [id number] PT International Ratio 4.2 Normal [facility] ([place]) Comment on above: Result Comment: [employer] (CHEST, 1992, [id number]) recommended therapeutic range for oral anticoagulant therapy is: LOW RISK: Prophylaxis of venous thrombosis INR: 2.0-3.0 Treatment of pulmonary embolism 2.0-3.0 Prevention of systemic embolism 2.0-3.0 HIGH RISK: Mechanical prosthetic valves 2.5-3.5 Performed By: #### A ANNAMARIE, APTT, ADIFF, PRO, MDW, CBC #### [id number] [place], [place] [address] No Panel InformationOrdered By: Sylvester Cunha on 11-27-2022 Prostate Specific Antigen Total 8.90 ng/mL 0.0-4.0 [facility] Comment on above: This test was perfor med using the TPSA assay method for the[facility] [place] [facility]. Values obtained with differentassay methods cannot be used interchangably.When changing PSA assays in the course of monitoring apatient, additional sequential testing should be carriedout to confirm baseline values. INR in Blood by Coagulation assayOrdered By: Baylee Lara on 11-20-2022 INR Coag (Bld) [Relative time] 3.5 {INR} [facility] Laboratory - CoagulationOrde red By: Baylee Lara on 11-20-2022 PT Coag (PPP) [Time] 35.5 s 11.7-14.9 [facility] Basophil percentageOrdered B y: Dionisio Kianna on 11-06-2022 Bilirubin [Mass/Vol] 1.00 mg/dL 0.20-1.00 [facility] Comment on above: For patients on eltr ombopag therapy, use of Dimension [place] TBIL is not recommended. Cholesterol [Mass/Vol] 188 mg/dL <200 [facility] Comment on above: <200 mg/dL Desirable 200-240 mg/dL Borderline >240 mg/dL High Risk Protein [Mass/Vol] 7.6 g/dL 6.4-8.2 [facility] Triglyceride [Mass/Vol] 122 mg/dL <199 [facility] Comment on above: The drugs N-Acetylcy steine and Metamizole may falsely depress this assay.Serum Triglycerides Reference Interval Normal <150 mg/dL Borderline high 150 - 199 mg/dL High 200 - 499 mg/dL Very High > or = 500 mg/dL Direct bilirubinOrdered By: [place] Kianna on 11-06-2022 Bilirubin.direct [Mass/Vol] 0.23 mg/dL 0.00-0.30 [facility] INR in Blood by Coagulation assayOrdered By: Dionisio Kianna on 11-06-2022 INR Coag (Bld) [Relative time] 3.2 {INR} [facility] Laboratory - Chemistry and C hemistry - challengeOrdered By: Dionisio Kianna on 11-06-2022 ALP [Catalytic activity/Vol] 40 U/L 45-117 [facility] ALT [Catalytic activity/Vol] 22 U/L 16-61 [facility] Globulin (S) [Mass/Vol] 3.8 g/dL 2.2-4.2 [facility] Laboratory - CoagulationOrde red By: Dionisio Kianna on 11-06-2022 PT Coag (PPP) [Time] 33.4 s 11.7-14.9 [facility] Serum or plasma albumin paul urement (mass/volume)Ordered By: Dionisio Hutchison on 11-06-2022 Albumin [Mass/Vol] 3.8 g/dL 3.2-5.0 [facility] Serum or plasma cholesterol in HDL measurement (mass/volume)Ordered By: Dionisio Hutchison on 11-06-2022 Cholesterol in HDL [Mass/Vol] 58 mg/dL >40 [facility] Comment on above: The drugs N-Acetylcy steine and Metamizole may falsely depress this assay. Reference Range HDL <40 mg/dL Low HDL Cholesterol HDL >or= 60 mg/dL High HDL Cholesterol Serum or plasma cholesterol in VLDL measurement (mass/volume)Ordered By: Dionisio Hutchison on 11-06-2022 Cholesterol in VLDL [Mass/Vol] 24 mg/dL 5-40 [facility] Serum or plasma low density lipoprotein (LDL) cholesterol measurement (mass/volume)Ordered By: Dionisio Hutchison on 11-06-2022 Cholesterol in LDL [Mass/Vol] 106 mg/dL 0-130 [facility] Thin prep Papanicolaou smear with manual screeningOrdered By: Dionisio Hutchison on 11-06-2022 Thin prep Papanicolaou smear with manual screening 24 U/L 15-37 [facility] INR in Blood by Coagulation assayOrdered By: Baylee Lara on 10-09-2022 INR Coag (Bld) [Relative time] 1.6 {INR} [facility] Laboratory - CoagulationOrde red By: Baylee Lara on 10-09-2022 PT Coag (PPP) [Time] 19.6 s 11.7-14.9 [facility] Absolute lymphocyte countOrd ered By: Baylee Lara on 09-25-2022 Lymphocytes Auto (Unsp spec) [#/Vol] 1.54 10*3/uL 0.83-4.51 [facility] Basophil percentageOrdered B y: Baylee Lara on 09-25-2022 Basophils/100 WBC (Bld) 0.9 % 0-1 [facility] Chloride [Moles/Vol] 102 mmol/L 98-107 [facility] Eosinophils/100 WBC (Bld) 6.3 % 0-5 [facility] Glucose [Mass/Vol] 94 mg/dL 74-106 [facility] Neutrophils (Bld) [#/Vol] 3.1 10*3/uL 2.0-7.7 [facility] Neutrophils/100 WBC (Bld) 54.9 % 47-70 [facility] Potassium [Moles/Vol] 3.9 mmol/L 3.5-5.1 [facility] Sodium [Moles/Vol] 137 mmol/L 136-145 [facility] WBC (Bld) [#/Vol] 5.7 10*3/uL 4.4-11.0 [facility] Blood erythrocytes count (nu mber/volume)Ordered By: Baylee Lara on 09-25-2022 RBC (Bld) [#/Vol] 5.38 10*6/uL 4.6-6.2 [facility] Blood hemoglobin measurement (mass/volume)Ordered By: Baylee Lara on 09-25-2022 Hemoglobin (Bld) [Mass/Vol] 15.7 g/dL 13.0-16.5 [facility] Blood lymphocytes/100 leukoc ytesOrdered By: Baylee Lara on 09-25-2022 Lymphocytes/100 WBC (Bld) 27.1 % 19-41 [facility] Blood monocytes/100 leukocyt esOrdered By: Baylee Lara on 09-25-2022 Monocytes/100 WBC (Bld) 10.4 % 0-10 [facility] Blood platelet mean volumeOr dered By: Baylee Lara on 09-25-2022 Platelet mean volume (Bld) [Entitic vol] 10.7 fL 6.2-12.0 [facility] Determination of erythrocyte mean corpuscular volume (MCV)Ordered By: Baylee Lara on 09-25-2022 MCV (RBC) [Entitic vol] 90.1 fL 80-94 [facility] Hematocrit Auto (Bld) [Volum e fraction]Ordered By: Baylee Lara on 09-25-2022 Hematocrit (Bld) [Volume fraction] 48.5 % 40-54 [facility] Laboratory - Chemistry and C hemistry - challengeOrdered By: Baylee Lara on 09-25-2022 CO2 [Moles/Vol] 30.0 mmol/L 21.0-32.0 [facility] Magnesium [Mass/Vol] 2.3 mg/dL 1.6-2.6 [facility] Urea nitrogen/Creatinine [Mass ratio] 25.6 mg/mg 10-20 [facility] Laboratory - Hematology and Cell countsOrdered By: Baylee Lara on 09-25-2022 Erythrocyte distribution width (RBC) [Entitic vol] 44.5 fL 35.1-43.9 [facility] Erythrocyte distribution width (RBC) [Ratio] 13.3 % 11.6-14.6 [facility] Immature granulocytes/100 WBC (Bld) 0.400 % 0.0-0.9 [facility] Comment on above: IG% - Immature Granu locytes (promyelocytes, myelocytes and metamyelocytes) > 1% indicates that a LEFT SHIFT is Present. MCH (RBC) [Entitic mass] 29.2 pg 27.0-32.0 [facility] Nucleated RBC/100 WBC (Bld) [Ratio] 0 % 0-5 [facility] MCHC Auto (RBC) [Mass/Vol]Or dered By: Baylee Lara on 09-25-2022 MCHC (RBC) [Mass/Vol] 32.4 g/dL 32-36 [facility] No Panel InformationOrdered By: Baylee Lara on 09-25-2022 Estimated GFR (MDRD) Amer 94 mL/min >60 [facility] Comment on above: GFR Calc Estimated GFR (MDRD) Non-Af Amer 78 mL/min >60 [facility] Comment on above: Non- GFR Calc Thyroid Stimulating Hormone (TSH) 3.86 uIU/mL 0.358-3.74 [facility] Platelets bldOrdered By: Nikita evgeny Jane on 09-25-2022 Platelets (Bld) [#/Vol] 223 10*3/uL 150-450 [facility] Serum or plasma calcium paul urement (mass/volume)Ordered By: Baylee Lara on 09-25-2022 Calcium [Mass/Vol] 9.2 mg/dL 8.5-10.1 [facility] Serum or plasma creatinine m easurement (mass/volume)Ordered By: Baylee Lara on 09-25-2022 Creatinine [Mass/Vol] 0.98 mg/dL 0.70-1.30 [facility] Comment on above: The validity of the calculated GFR & GFRAA in patients over 70 years has not been determined. Clinical correlation is essential. Serum or plasma urea nitroge n measurement (mass/volume)Ordered By: Baylee Lara on 09-25-2022 Urea nitrogen [Mass/Vol] 25 mg/dL 7-18 [facility] Thin prep Papanicolaou smear with manual screeningOrdered By: Baylee Lara on 09-25-2022 Thin prep Papanicolaou smear with manual screening 5 5-15 [facility] INR in Blood by Coagulation assayOrdered By: Baylee Lara on 09-04-2022 INR Coag (Bld) [Relative time] 2.0 {INR} [facility] Laboratory - CoagulationOrde red By: Baylee Lara on 09-04-2022 PT Coag (PPP) [Time] 22.6 s 11.7-14.9 [facility] No Panel Informationon 08-25 INR International Normalized Ratio 1.0 [facility] LABORATORYOrdered By: SYSTEM SYSTEM on 06-27-2022 Free T3 [Mass/Vol] 2.34 pg/mL Invalid Interpretation Code 2.30 - 4.00 pg/mL AO ADM SS Free T4 [Mass/Vol] 0.98 ng/dL Invalid Interpretation Code 0.76 - 1.46 ng/dL AO ADM SS TSH Qn 3.72 m[IU]/L Invalid Interpretation Code 0.36 - 3.74 mcIU/mL AO ADM SS LABORATORYOrdered By: Jessa Blackmon on 03-27-2022 Albumin BCP dye [Mass/Vol] 4.0 G/dL Invalid Interpretation Code 3.4 - 4.8 G/dL AO ADM SS Albumin/Globulin [Mass ratio] 1.3 {ratio} Invalid Interpretation Code 1.1 - 2.5 ratio AO ADM SS ALP [Catalytic activity/Vol] 45 U/L Invalid Interpretation Code 40 - 135 U/L AO ADM SS ALT With P-5'-P [Catalytic activity/Vol] 22 U/L Invalid Interpretation Code 16 - 63 U/L AO ADM SS AST With P-5'-P [Catalytic activity/Vol] 23 U/L Invalid Interpretation Code 10 - 40 U/L AO ADM SS Bilirubin [Mass/Vol] 1.1 mg/dL Invalid Interpretation Code 0.2 - 1.0 mg/dL AO ADM SS Calcium [Mass/Vol] 9.5 mg/dL Invalid Interpretation Code 8.4 - 10.2 mg/dL AO ADM SS Chloride [Moles/Vol] 102 mmol/L Invalid Interpretation Code 98 - 107 mmol/L AO ADM SS CO2 [Moles/Vol] 32 mmol/L Invalid Interpretation Code 23 - 31 mmol/L AO ADM SS Creatinine [Mass/Vol] 1.03 mg/dL Invalid Interpretation Code 0.70 - 1.30 mg/dL AO ADM SS Electrolyte Balance 7.0 mEq/L Invalid Interpretation Code 4.0 - 15.0 mEq/L AO ADM SS Globulin 3.1 G/dL Invalid Interpretation Code AO ADM SS Glucose [Mass/Vol] 99 mg/dL Invalid Interpretation Code 83 - 110 mg/dL AO ADM SS Potassium [Moles/Vol] 4.5 mmol/L Invalid Interpretation Code 3.5 - 5.1 mmol/L AO ADM SS Protein [Mass/Vol] 7.1 G/dL Invalid Interpretation Code 6.4 - 8.2 G/dL AO ADM SS Sodium [Moles/Vol] 141 mmol/L Invalid Interpretation Code 136 - 145 mmol/L AO ADM SS TSH Qn 4.90 m[IU]/L Invalid Interpretation Code 0.36 - 3.74 mcIU/mL AO ADM SS Urea nitrogen [Mass/Vol] 21 mg/dL Invalid Interpretation Code 7 - 18 mg/dL AO ADM SS Urea nitrogen/Creatinine [Mass ratio] 20 ratio Invalid Interpretation Code 7 - 27 ratio AO ADM SS LABORATORYOrdered By: SYSTEM SYSTEM on 03-27-2022 GFR 83 ml/min/1.73sqm Invalid Interpretation Code AO Chemistry S GFR Non- 69 ml/min/1.73sqm Invalid Interpretation Code AO Chemistry S LABORATORYOrdered By: Pritesh Garner on 03-27-2022 HCV Ab IA Ql Non-Reactive (03/27/22 9:03 AM) Invalid Interpretation Code Non-Reactiv e AH ADM SS HCV Ab IA Ql Nonreactive: Samples with a value < 0.80 are considered nonreactive (negative) for antibodies to HCV.A negative test result does not exclude the possibility of exposure to or infection with HCV. HCV antibodies may be undetectable in some stages of the infection and in some clinical conditions. Invalid Interpretation Code AH Chemistry S LABORATORYOrdered By: Jessa Blackmon on 11-23-2021 Prostate specific Ag [Mass/Vol] 4.98 ng/mL Invalid Interpretation Code 0.00 - 4.00 ng/mL AO ADM SS Basophil percentageon 2021 Bilirubin [Mass/Vol] 0.80 mg/dL 0.20-1.00 [facility] Work Phone: Comment on above: For patients on eltr ombopag therapy, use of Dimension [place] TBIL is not recommended. Cholesterol [Mass/Vol] 170 mg/dL <200 [facility] Work Phone: Comment on above: <200 mg/dL Desirable 200-240 mg/dL Borderline >240 mg/dL High Risk Protein [Mass/Vol] 7.5 g/dL 6.4-8.2 [facility] Work Phone: [phone] Triglyceride [Mass/Vol] 108 mg/dL [facility] Work Phone: Comment on above: The drugs N-Acetylcy steine and Metamizole may falsely depress this assay.Serum Triglycerides Reference Interval Normal <150 mg/dL Borderline high 150 - 199 mg/dL High 200 - 499 mg/dL Very High > or = 500 mg/dL Direct bilirubinon Bilirubin.direct [Mass/Vol] 0.20 mg/dL 0.00-0.30 [facility] Work Phone: [phone] Laboratory - Chemistry and C hemistry - challengeon 09-06-2021 ALP [Catalytic activity/Vol] 48 U/L 45-117 [facility] Work Phone: [phone] [Catalytic activity/Vol] 22 U/L 16-61 [facility] Work Phone: [phone] Globulin (S) [Mass/Vol] 3.4 g/dL 2.2-4.2 [facility] Work Phone: [phone] Serum or plasma albumin paul urement (mass/volume)on 09-06-2021 Albumin [Mass/Vol] 4.1 g/dL 3.2-5.0 [facility] Work Phone: Serum or plasma cholesterol in HDL measurement (mass/volume)on 09-06-2021 Cholesterol in HDL [Mass/Vol] 53 mg/dL [facility] Work Phone: Comment on above: The drugs N-Acetylcy steine and Metamizole may falsely depress this assay. Reference Range HDL <40 mg/dL Low HDL Cholesterol HDL >or= 60 mg/dL High HDL Cholesterol Serum or plasma cholesterol in VLDL measurement (mass/volume)on 09-06-2021 Cholesterol in VLDL [Mass/Vol] 22 mg/dL 5-40 [facility] Work Phone: Serum or plasma low density lipoprotein (LDL) cholesterol measurement (mass/volume)on 09-06-2021 Cholesterol in LDL [Mass/Vol] 95 mg/dL 0-130 [facility] Work Phone: Thin prep Papanicolaou smear with manual screeningon 09-06-2021 Thin prep Papanicolaou smear with manual screening 22 U/L 15-37 [facility] Work Phone: LABORATORYOrdered By: Leidy Aguilera on 02-10-2021 Albumin BCP dye [Mass/Vol] 4.0 G/dL Invalid Interpretation Code 3.4 - 4.8 G/dL AO ADM SS Albumin/Globulin [Mass ratio] 1.5 {ratio} Invalid Interpretation Code 1.1 - 2.5 ratio AO ADM SS ALP [Catalytic activity/Vol] 47 U/L Invalid Interpretation Code 40 - 135 U/L AO ADM SS ALT With P-5'-P [Catalytic activity/Vol] 23 U/L Invalid Interpretation Code 16 - 63 U/L AO ADM SS AST With P-5'-P [Catalytic activity/Vol] 18 U/L Invalid Interpretation Code 10 - 40 U/L AO ADM SS Bilirubin [Mass/Vol] 0.9 mg/dL Invalid Interpretation Code 0.2 - 1.0 mg/dL AO ADM SS Calcium [Mass/Vol] 8.9 mg/dL Invalid Interpretation Code 8.4 - 10.2 mg/dL AO ADM SS Chloride [Moles/Vol] 103 mmol/L Invalid Interpretation Code 98 - 107 mmol/L AO ADM SS Cholesterol [Mass/Vol] 166 mg/dL Invalid Interpretation Code 0 - 200 mg/dL AO ADM SS Cholesterol in HDL [Mass/Vol] 43 mg/dL Invalid Interpretation Code 40 - 60 mg/dL AO ADM SS Cholesterol in LDL [Mass/Vol] 90 mg/dL Invalid Interpretation Code 0 - 130 mg/dL AO ADM SS CO2 [Moles/Vol] 31 mmol/L Invalid Interpretation Code 23 - 31 mmol/L AO ADM SS Creatinine [Mass/Vol] 1.01 mg/dL Invalid Interpretation Code 0.70 - 1.30 mg/dL AO ADM SS Electrolyte Balance 8.0 mEq/L Invalid Interpretation Code AO ADM SS Globulin 2.6 G/dL Invalid Interpretation Code AO ADM SS Glucose [Mass/Vol] 93 mg/dL Invalid Interpretation Code 83 - 110 mg/dL AO ADM SS Potassium [Moles/Vol] 4.4 mmol/L Invalid Interpretation Code 3.5 - 5.1 mmol/L AO ADM SS Prostate specific Ag [Mass/Vol] 5.99 ng/mL Invalid Interpretation Code 0.00 - 4.00 ng/mL AO ADM SS Protein [Mass/Vol] 6.6 G/dL Invalid Interpretation Code 6.4 - 8.2 G/dL AO ADM SS Sodium [Moles/Vol] 142 mmol/L Invalid Interpretation Code 136 - 145 mmol/L AO ADM SS Triglyceride [Mass/Vol] 166 mg/dL Invalid Interpretation Code 0 - 150 mg/dL AO ADM SS TSH Qn 4.54 m[IU]/L Invalid Interpretation Code 0.36 - 3.74 mcIU/mL AO ADM SS Urea nitrogen [Mass/Vol] 26 mg/dL Invalid Interpretation Code 7 - 18 mg/dL AO ADM SS Urea nitrogen/Creatinine [Mass ratio] 26 ratio Invalid Interpretation Code 7 - 27 ratio AO ADM SS LABORATORYOrdered By: SYSTEM SYSTEM on 02-10-2021 GFR 86 ml/min/1.73sqm Invalid Interpretation Code AO Chemistry S GFR Non- 71 ml/min/1.73sqm Invalid Interpretation Code AO Chemistry S Vital Signs Date Time Vital Sign Value Performing Clinician Facility 01-20-2025 09:16-0400 Body height 180.[address] Darin Mkie DO Work Phone: [facility] 01-20-2025 09:16-0400 Body mass index (BMI) [Ratio] 28.3 kg/m2 Dr. Darin Mike DO Work Phone: [facility] 01-20-2025 09:16-0400 Body weight 92.[address] Darin Mike DO Work Phone: [facility] 01-20-2025 09:16-0400 Diastolic blood pressure 70 mm[Hg] Dr. Darin Mike DO Work Phone: [facility] 01-20-2025 09:16-0400 Heart rate 59 /min Dr. Darin Mike DO Work Phone: [facility] 01-20-2025 09:16-0400 Respiratory rate 16 /min Dr. Darin Mike DO Work Phone: [facility] 01-20-2025 09:16-0400 Systolic blood pressure 114 mm[Hg] Dr. Darin Mike DO Work Phone: [facility] 06-13-2024 09:26-0500 Body height 180.[address] Darin Mike DO Work Phone: [facility] 06-13-2024 09:26-0500 Body mass index (BMI) [Ratio] 29.2 kg/m2 Dr. Darin Mike DO Work Phone: [facility] 06-13-2024 09:26-0500 Body weight 95.[address] Darin Mike DO Work Phone: [facility] 06-13-2024 09:26-0500 Diastolic blood pressure 70 mm[Hg] Dr. Darin Mike DO Work Phone: [facility] 06-13-2024 09:26-0500 Heart rate 55 /min Dr. Darin Mike DO Work Phone: [facility] 06-13-2024 09:26-0500 Respiratory rate 16 /min Dr. Darin Mike DO Work Phone: [facility] 06-13-2024 09:26-0500 Systolic blood pressure 107 mm[Hg] Dr. Darin Mike DO Work Phone: [facility] 12-01-2022 22:43-0400 Diastolic Blood Pressure Non-Invasive 91 1 FRANKLIN ALLEN MD [facility] 12-01-2022 22:43-0400 Heart rate 97 /min FRANKLIN ALLEN MD [facility] 12-01-2022 22:43-0400 Respiratory rate 18 /min FRANKLIN ALLEN MD [facility] 12-01-2022 22:43-0400 Systolic Blood Pressure Non-Invasive 148 1 FRANKLIN ALLEN MD [facility] 12-01-2022 21:29-0400 Blood Pressure Cuff Size FRANKLIN ALLEN MD [facility] 12-01-2022 21:29-0400 Blood Pressure Location FRANKLIN ALLEN MD [facility] 12-01-2022 21:29-0400 Blood Pressure Method FRANKLIN ALLEN MD [facility] 12-01-2022 21:29-0400 Body height 180.3 cm FRANKLIN ALLEN MD [facility] 12-01-2022 21:29-0400 Body temperature 97.52 [degF] FRANKLIN ALLEN MD [facility] 12-01-2022 21:29-0400 Body weight 94 kg FRANKLIN ALLEN MD [facility] 12-01-2022 21:29-0400 Diastolic Blood Pressure Non-Invasive 104 1 FRANKLIN ALLEN MD [facility] 12-01-2022 21:29-0400 Heart rate 108 /min FRANKLIN ALLEN MD [facility] 12-01-2022 21:29-0400 Reason For Taking VItal Signs FRANKLIN ALLEN MD [facility] 12-01-2022 21:29-0400 Respiratory rate 20 /min FRANKLIN ALLEN MD [facility] 12-01-2022 21:29-0400 Systolic Blood Pressure Non-Invasive 152 1 FRANKLIN ALLEN MD [facility] 09-06-2022 09:18-0400 Body height 180.[address] Darin Mike Work Phone: [facility] 09-06-2022 09:18-0400 Body mass index (BMI) [Ratio] 29 kg/m2 Dr. Darin Mike Work Phone: [facility] 09-06-2022 09:18-0400 Body weight 94.[address] Darin Mike Work Phone: [facility] 09-06-2022 09:18-0400 Diastolic blood pressure 76 mm[Hg] Dr. Darin Mike Work Phone: [facility] 09-06-2022 09:18-0400 Heart rate 65 /min Dr. Darin Mike Work Phone: [facility] 09-06-2022 09:18-0400 Respiratory rate 16 /min Dr. Darin Mike Work Phone: [facility] 09-06-2022 09:18-0400 Systolic blood pressure 120 mm[Hg] Dr. Darin Mike Work Phone: [facility] 06-21-2022 09:27-0500 Body height 180.[address] Darin Mike Work Phone: [facility] 06-21-2022 09:22-0500 Body mass index (BMI) [Ratio] 29.1 kg/m2 Dr. Darin Mike Work Phone: [facility] 06-21-2022 09:22-0500 Body weight 94.[address] Darin Mike Work Phone: [facility] 06-21-2022 09:22-0500 Diastolic blood pressure 88 mm[Hg] Dr. Darin Mike Work Phone: [facility] 06-21-2022 09:22-0500 Heart rate 61 /min Dr. Darin Mike Work Phone: [facility] 06-21-2022 09:22-0500 Respiratory rate 18 /min Dr. Darin Mike Work Phone: [facility] 06-21-2022 09:22-0500 SaO2% (BldA) [Mass fraction] 95 % Dr. Darin Mike Work Phone: [facility] 06-21-2022 09:22-0500 Systolic blood pressure 126 mm[Hg] Dr. Darin Mike Work Phone: [facility] 09-06-2021 08:53-0400 Body height 180.[address] Darin Mike Work Phone: [facility] Work Phone: 09-06-2021 08:53-0400 Body mass index (BMI) [Ratio] 29.4 kg/m2 Dr. Darin Mike Work Phone: [facility] Work Phone: 09-06-2021 08:53-0400 Body weight 95.[address] Darin Mike Work Phone: [facility] Work Phone: 09-06-2021 08:53-0400 Diastolic blood pressure 70 mm[Hg] Dr. Darin Mike Work Phone: [facility] Work Phone: 09-06-2021 08:53-0400 Heart rate 48 /min Dr. Darin Mike Work Phone: [facility] Work Phone: 09-06-2021 08:53-0400 Respiratory rate 16 /min Dr. Darin Mike Work Phone: [facility] Work Phone: 09-06-2021 08:53-0400 SaO2% (BldA) [Mass fraction] 95 % Dr. Darin Mike Work Phone: [facility] Work Phone: 09-06-2021 08:53-0400 Systolic blood pressure 134 mm[Hg] Dr. Darin Mike Work Phone: [facility] Work Phone: Encounters Encounter Date Encounter Type Care Provider Facility Start: 03-04-2025 ambulatory Darin Mike Facility :[facility] Start: 01-20-2025 End: 01-20-[address] Dionisio Hutchison MD -[facility] Work Phone: Start: 01-20-2025 End: 01-20-[address] Darin Mike DO Work Phone: [facility] Start: 11-27-2024 End: 11-27-[address] Darin Mike DO Work Phone: [facility] Start: 11-27-2024 End: 11-27-[address] [facility] Work Phone: Start: 10-12-2024 End: 10-12-[address] Darin Mike DO Work Phone: [facility] Start: 10-12-2024 End: 10-12-[address] [facility] Work Phone: Start: 09-13-2024 End: 09-13-2024 ambulatory DARIN MIKE DO Facility:[facility] Start: 09-13-2024 End: 09-13-2024 Patient encounter procedure DARIN MIKE DO [facility] Start: 08-27-2024 End: 08-27-[address] Darin Mike DO Work Phone: [facility] Work Phone: Start: 08-27-2024 End: 08-27-[address] [facility] Work Phone: Start: 06-13-2024 End: 06-13-2024 Patient encounter procedure Dave GARCIAS [facility] Work Phone: Start: 06-13-2024 End: 06-13-2024 ambulatory Darin Mike Facility:[facility] Start: 05-28-2024 End: 05-28-2024 ambulatory Dionisio Hutchison Facility:[facility] Start: 05-28-2024 End: 05-28-[address] [facility] Work Phone: Start: 03-10-2024 End: 03-10-2024 ambulatory Darin Mike Facility:[facility] Start: 03-06-2024 End: 03-10-2024 ambulatory DARIN JENNINGSY DO Facility:[facility] Start: 03-06-2024 End: 03-10-2024 Outreach Lab DARIN MIKE DO [facility] Start: 02-28-2024 End: 02-28-2024 ambulatory Darin Mike Facility:[facility] Start: 02-21-2024 End: 02-21-2024 ambulatory DARIN MIKE DO Facility:[facility] Start: 02-21-2024 End: 02-21-2024 Patient encounter procedure DARIN MIKE DO [facility] Start: 11-21-2023 End: 11-21-2023 ambulatory DARIN MIKE DO Facility:[facility] Start: 07-09-2023 End: 07-09-2023 ambulatory [facility] Work Phone: Start: 07-09-2023 End: 07-09-2023 Patient encounter procedure [facility] Work Phone: Start: 05-11-2023 End: 05-11-2023 ambulatory [facility] Work Phone: Start: 05-11-2023 End: 05-11-2023 Patient encounter procedure [facility] Work Phone: Start: 03-15-2023 End: 03-15-2023 ambulatory DARIN MIKE DO Facility:[facility] Start: 03-15-2023 End: 03-19-2023 ambulatory DARIN MIKE DO Facility:[facility] Start: 03-15-2023 End: 03-19-2023 Outreach Lab DARIN MIKE DO [facility] Start: 12-01-2022 End: 12-01-2022 Emergency department patient visit FRANKLIN ALLEN MD [facility] Start: 11-27-2022 End: 11-27-[address] Darin Mike Work Phone: [facility] Work Phone: Start: 11-27-2022 End: 11-27-[address] [facility]: Start: 11-20-2022 End: 11-20-[address] Darin Mike Work Phone: [facility] Work Phone: Start: 11-20-2022 End: 11-20-[address] [facility]: Start: 11-20-[address] Jasmin Mike [facility]: Start: 11-06-2022 End: 11-13-[address] Darin Mike Work Phone: [facility] Work Phone: Start: 11-06-2022 End: 11-13-[address] Darin [facility]: Start: 10-09-2022 End: 10-09-[address] Darin Mike Work Phone: [facility] Work Phone: Start: 10-09-2022 End: 10-09-[address] Darin [facility]: Start: 09-06-2022 End: 09-06-[address] Darin Mike Work Phone: [facility] Start: 09-04-2022 End: 09-04-[address] Darin Mike Work Phone: [facility] Work Phone: Start: 09-04-2022 End: 09-04-[address] Darin Mike Work Phone: [facility] Start: 08-25-2022 Non-patient / Non-visit Dr. Jerrell Mike Work Phone: [facility] Start: 07-06-2022 End: 07-06-[address] Darin Mike Work Phone: [facility] Work Phone: Start: 07-06-2022 End: 07-06-[address] Darin Mike Work Phone: [facility]Pulmonary Services/Neurology Start: 06-27-2022 End: 06-27-2022 Patient encounter procedure DARIN MIKE DO [facility] Start: 06-21-2022 End: 06-21-[address] Darin Mike Work Phone: [facility] Start: 03-27-2022 End: 03-27-2022 Patient encounter procedure DARIN MIKE DO [facility] Start: 03-27-2022 End: 03-27-2022 Well adult monitoring check done DARIN MIKE DO [facility] Start: 11-23-2021 End: 11-23-[address] SYLVESTER CUNHA MD [facility] Start: 09-06-2021 End: 09-06-[address] Darin Mike Work Phone: [facility] Start: 02-10-2021 End: 02-10-2021 Patient encounter procedure DARIN MIKE DO [facility] Procedures Date Procedure Procedure Detail Performing Clinician Start: 01-15-2024 Pacemaker battery (physical object) DARIN MIKE DO Comment on above: received a pacemaker Start: 05-12-2013 Arthroplasty of knee JERRELL SIMS RASHID SAHU Comment on above: Left Start: 11-30-1998 Prostate biopsy need le (physical object) DARIN MIKE DO Start: 04-16-1996 Excision of bunion UTE CROWLEY RASHID DO Comment on above: right foot Start: 04-16-1956 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 DARIN MIKE DO Comment on above: left knee Arthroscopy of knee DARIN MIKE DO Comment on above: left knee, ACL insuf ficiency, degenerative arthritis Plan of Treatment Date Care Activity Detail Author Blood chemistry [facility] CBC W Auto Differential panel - Blood [facility] Magnesium [Mass/volume] in Serum or Plasm a [facility] Thyroid stimulating hormone measurement [facility] Immunizations Immunization Date Immunization Notes Care Provider Fa cili 01-30-2024 influenza virus vacc ine, unspecified formulation DARIN MIKE DO [facility] [place] 01-30-2024 influenza, high dose seasonal, preservative-free Dr. Darin Mike DO Work Phone: [facility] 03-15-2023 influenza, high dose seasonal, preservative-free; Translations: [Fluad Quadrivalent PF ] DARIN JENNINGSY DO [facility] 03-22-2022 influenza, high dose seasonal, preservative-free DARIN MIKE DO [facility] 03-28-2021 SARS-CoV-2 (COVID-19 ) mRNA-1273 vaccine DARIN MIKE DO [facility] 02-09-2021 influenza, high dose seasonal, preservative-free; Translations: [Fluad Quadrivalent PF ] DARIN MIKE DO [facility] 06-16-2020 COVID-19, mRNA, LNP- S, PF, 100 mcg/ 0.5 mL dose; Translations: [Moderna COVID-19 Vaccine] DARIN RASHID DO [facility] 05-19-2020 SARS-CoV-2 (COVID-19 ) mRNA-1273 vaccine DARIN MIKE DO [facility] 03-02-2020 influenza, injectabl e, quadrivalent, preservative free; Translations: [Fluarix PF Quadrivalent ] DARIN RASHID DO [facility] 01-30-2019 pneumococcal conjuga te vaccine, 13 valent; Translations: [Prevnar 13] DARIN RASHID DO [facility] 01-07-2019 influenza virus vacc ine, unspecified formulation DARIN RASHID DO [facility] 02-01-2018 influenza virus vacc ine, unspecified formulation DARIN MIKE DO [facility] 04-19-2017 influenza virus vacc ine, unspecified formulation DARIN MIKE DO [facility] 04-05-2016 influenza virus vacc ine, unspecified formulation DARIN MIKE DO [facility] 05-14-2015 influenza virus vacc ine, unspecified formulation DARIN MIKE DO [facility] 02-23-2014 zoster vaccine, live DARIN MIKE DO [facility] 02-09-2014 influenza virus vacc ine, unspecified formulation DARIN MIKE DO [facility] 02-12-[address] Darin Mike Work Phone: [facility] 03-11-[address] Jay Mike Work Phone: [facility] Work Phone: 03-11-2012 pneumococcal vaccine , unspecified formulation Dr. Darin Mike Work Phone: [facility] 04-13-2010 tetanus toxoid, redu anne marie diphtheria toxoid, and acellular pertussis vaccine, adsorbed DARIN MIKE DO [facility] 06-09-2003 pneumococcal polysaccharide vaccine, 23 valent DARIN MIKE DO [facility] 01-23-2000 diphtheria and tetan us toxoids, adsorbed for pediatric use DARIN RASHID SAHU [facility] Payers Date Payer Category Payer Private Health Insurance [id number] 2024 Self-pay [id number] 2013 Private Health Insurance [id number] 1937 Unknown [id number] 2.16.8 [id number] 1937 Unknown [id number] 2.16.8 [id number] 1937 Unknown [id number] 2.16.8 [id number] 1937 Unknown [id number] 2.16.8 [id number] 1937 Unknown [id number] 2.16.8 [id number] 1937 Unknown [id number] 2.16.8 40.1.880084.3.579.2.627 1937 Unknown [id number] 2.16.8 [id number] Unknown [id number] 2.16.8 40.1.340702.3.579.2.462 Unknown [id number] 2.16.8 40.1.014687.3.579.2.462 Unknown [id number] 2.16.8 40.1.960787.3.579.2.462 Unknown [id number] 2.16.8 40.1.687864.3.579.2.462 Unknown [id number] 2.16.8 40.1.769319.3.579.2.462 Unknown [id number] 2.16.8 40.1.995495.3.579.2.462 Unknown [id number] 2.16.8 40.1.198544.3.579.2.462 Unknown [id number] 2.16.8 40.1.639071.3.579.2.462 Unknown [id number] 2.16.8 40.1.339215.3.579.2.462 Unknown [id number] 2.16.8 [id number] Unknown [id number] 2.16.8 [id number] Unknown [id number] 2.16.8 [id number] Social History Date Type Detail Facility Start: 01-30-2019 End: 01-29-2024 Never smoked tobacco (finding) [facility] Start: 1935 Sex Assigned At Male [facility] Start: 09-06-2021 End: 09-06-2022 Tobacco smoking status NHIS Unknown if ever smoked [facility] Sexual Orientation [facility] Start: 10-09-2018 Sex Male (finding) [facility] Sex Male [facility] Medical Equipment Procedure Code Equipment Code Equipment Origin al Text Equipment Identifier Dates ([id number]) Endocardial paci ng lead ()[id number] [id number] FDA Start: 01-29-2024 ([id number]) Endocardial paci ng lead ()[id number] [id number] FDA Start: 01-29-2024 ([id number]) Dual-chamber implantable pacemaker, rate-responsive ()[id number] [facility] Start: 01-29-2024 Functional Status Date Assessment Result Facility 12-01-2022 [facility] 12-01-2022 Functional Status Independent [facility] Mental Status Date Assessment Result Facility 12-01-2022 Mental Status Orientation Oriented x 4 [facility] 12-01-2022 Mental Status [facility] Clinical Notes 07-03-2016 to 01-20-2025 Note Date & Type Note Facility 01-20-2025 Procedure note [facility] 06-13-2024 Evaluation note Diagnosis Onset Date Resolution Presence of cardiac pacemaker acute June 13, 2024 9:25am Bradycardia chronic May 9:25am Essential (primary) hypertension chronic June 13, 2024 9:25am High degree atrioventricular block chronic June 13, 2024 9:25am Hyperlipidemia chronic May 182024 9:25am Paroxysmal atrial fibrillation July 03, 2016 chronic June 13, 2024 9:25am [employer] [facility] Work Phone: 1(145) 584-684010-15-2024 Evaluation note* Diagnosis Onset Date Resolution Status Admit Date Presence of cardiac pacemaker January 29, 2024 acute January 20, 2025 8:52am High degree atrioventricular block chronic January 20 8:52am Paroxysmal atrial fibrillation July 03, 2016 chronic January 20 8:52am Longstanding persistent atrial fibrillation inactive January 20, 2025 8:52am Presence of cardiac pacemaker January 29, 2024 acute January 20, 2025 8:54am Bradycardia chronic January 20, 2025 8:54am Essential (primary) hypertension chronic January 20 8:54am Hyperlipidemia chronic January 8:54am Paroxysmal atrial fibrillation July 03, 2016 chronic January 20 8:54am [facility] Work Phone: 1(533) 968-277308-19-2023 Hospital Discharge instructions Patient Education 12/01/2022 22:37:39 Epistaxis (Adult) [...] it is treated to cause a blood clotto form. This may be done with a [...] Clean the humidifier as advised by the snack bar cook. Use a saline nasal spray to keep [...] pain Shortness of breath or trouble breathing [phone] [employer]. [address] [place] [address]. All rights reserved. This information is not intended as a substitute for professional medical care. Always follow yourhealthcare professional's instructions. Follow Up Care 12/01/2022 21:26:18 With:DARIN MIKE DO Address: [address] [place] [phone] When:2-4 days [facility] 08-18-2023 Note Discharge Instructions Thank you for allowing [facility] to assist you with your healthcare needs. The following is importantdischarge information regarding your hospital visit. Diagnosis from [...] MIKE DO When Within 2-4 days Where: [address] [place] [phone] Allergies niacin (Abdominal pain) Medications Please ask your primary doctor or pharmacist before taking any other medication not listed, including over the counter drugs, herbal medications, vitamins and or supplements as they may interact withyour home medications. What How Much When Why [...] it is treated to cause a blood clotto form. This may be done with a [...] Clean the humidifier as advised by the snack bar cook. Use a saline nasal spray to keep [...] pain Shortness of breath or trouble breathing [phone] [employer]. [address] [place] [address], [place] [address]. All rights reserved. This information is not intended as a substitute for professional medical care. Always follow yourhealthcare professional's instructions. Additional Information VACCINATE! IT SAVES LIVES! Members of the community who have not yet received the COVID-19 vaccine and would like to receive it can visit one of [facility] vaccine clinics. There are many vaccine clinic locations within the [facility]. For locations and available times, please visit [email or web address] It is important to note that some COVID mobile vaccine clinics are held outdoors and may be canceled in rainy or stormy conditions. To learn more about pediatric vaccinations (ages 5-11), we invite you to visit the [facility] webpage. [email or web address] learn more about the COVID-19 vaccine, we invite you to visit the CDC website for a list of frequently asked questions. https://www.cdc.gov/coronavirus/2019-ncov/vaccines/faq.html [employer] Patient Portal Access Instructions: Stay connected with your healthcare team and access your personal medical information anytime with the [employer] Patient Portal. If you would like a full copy of your medical records please contact the [facility] Medical Records Department Sunday through Sunday between 8a.m. and 4:30p.m. Please follow the directions below to access the portal: 1.Access the email account you provided upon registration to the [facility].2.Look for an invitation email from [facility].3.Open the email and access the invitation link: Accept Invitation to [employer]4.Fill in the required vivas to create your account. Sign into [email or web address] with your username and password that you [...] you will allow to register on the [employer] Patient Portal for access to your information. You can also access the [employer] Patient Portal on the [employer]. Simply click on Health Records under [facility] Child and then click on the [employer] logo. HOW TO SAFELY DISPOSE OF PRESCRIPTION MEDICATIONS Please use one of the following methods to safely dispose of your unused medications. 1.Use a drug disposal kit: the drug disposal pouch allows you to safely discard your old and unuseddrugs. Ask your nurse to give you one when you are discharged.2.Visit a local take-back location: Many local pharmacies and police departments have programs that collect old and unwanted prescriptiondrugs. Call your local pharmacy or go to http://[place] Emergency Registry.for; to (do)/6F9Yq2u to find one close to you.3.Make use of household items: Use cat litter or old coffee grounds to dispose medications if other options arenot available. Mix your drugs with these household products, seal them in an airtight container andthrow it into the garbage. Call [facility]: [phone] to be sure your drugs can be [...] drowsiness, such as benzodiazepines, also known as benzos,including diazepam and alprazolam, muscle relaxants or sleep aids. Never sell or share prescriptionopioids. This is illegal. Store opioids in a [...] aware that I should contact my doctor. 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: Date/Time: Relationship to Patient: Witness Name/Signature: Date/Time: [facility]02-18-2022 Evaluation + Plan note Future Scheduled Tests Laboratory* Thyroid Stimulating Hormone 06/03/21 [facility] 03-20-2017 Evaluation note* Diagnosis Onset Date Resolution Status Essential (primary) hypertension chronic Paroxysmal atrial fibrillation July 03, 2016 [facility] Work Phone: 1(258) 432-739303-20-2017 Evaluation note* Diagnosis Onset Date Resolution Status Essential (primary) hypertension chronic Paroxysmal atrial fibrillation July 03, 2016 chronic Longstanding persistent atrial fibrillation acute Essential (primary) hypertension [facility] Work Phone: Evaluation + Plan note Future Appointments Appointment Date:02/09/2022 10:00:00 AM Scheduled Provider:DARIN MIKE DO Location:[facility] Appointment Type:PC Wellness Medicare [facility] Evaluation + Plan note Future Appointments Appointment Date:02/09/2022 10:00:00 AM Scheduled Provider:DARIN MIKE DO Location:[facility] Appointment Type:PC Wellness Medicare Future Scheduled Tests Laboratory* Prostate Specific Antigen 02/23/21 * Thyroid Stimulating Hormone 06/03/21 * Thyroid Stimulating Hormone 02/23/21 * Free T4 02/23/21 * Free T3 02/23/21 [facility] Evaluation + Plan note Future Appointments Appointment Date:09/13/2023 10:00:00 AM Scheduled Provider:DARIN MIKE DO Location:[facility] Appointment Type:PC Wellness Medicare [facility] Evaluation + Plan note Future Appointments Appointment Date:03/06/2024 09:00:00 AM Scheduled Provider:DARIN MIKE DO Location:[facility] Appointment Type:[facility] Evaluation + Plan note Future Appointments Appointment Date:09/16/2024 09:00:00 AM Scheduled Provider:DARIN MIKE DO Location:[facility] Appointment Type:PC Wellness Medicare [facility] Evaluation note* Diagnosis Onset Date Resolution Status Longstanding persistent atrial fibrillation acute Essential (primary) hypertension chronic [facility] Work Phone: Evaluation noteNo assessment information available [facility] Work Phone: Hospital course Narrative No data available for this section [facility] Hospital Discharge instructions No data available for this section [facility] Progress note No data available for this section [facility] Reason for referral (narrative)No reason for [facility] Work Phone: Chief Complaint and Reason for Visit Chief Complaint 1 Y FU E ORDERS Reason for Visit Essential (primary) hypertension Paroxysmal atrial fibrillation Chief Complaint ABN EKG PAF Reason for Visit Essential (primary) hypertension Paroxysmal atrial fibrillation Chief Complaint ABN EKG PAF EORDERS 1 Y FU Reason for Visit Essential (primary) hypertension Paroxysmal atrial fibrillation Longstanding persistent atrial fibrillation Essential (primary) hypertension Chief Complaint ABN EKG PAF EORDERS 1 Y FU INR Reason for Visit Essential (primary) hypertension Paroxysmal atrial fibrillation Longstanding persistent atrial fibrillation Essential (primary) hypertension Chief Complaint EORDERS 1 Y FU INR INR Reason for Visit Longstanding persist ent atrial fibrillation Essential (primary) hypertension Chief Complaint EORDERS 1 Y FU INR INR INR Reason for Visit Longstanding persist ent atrial fibrillation Essential (primary) hypertension Chief Complaint INT LABS Chief Complaint INT LABS SCANNED ORDER Chief Complaint Admit Date Pacer Check Remote May 28, 2024 11:13am 3 M FU June 13, 2024 9:25am Pacer Check Remote August 27, 2024 4:00a m Reason for Visit Admit Date Presence of cardiac pacemaker May 182024 9:25am Bradycardia June 13, 2024 9:25am Essential (primary) hypertension 2024 9:25am High degree atrioventricular block 2024 9:25am Hyperlipidemia June 13, 2024 9:25am Paroxysmal atrial fibrillation June 13, 2024 9:25am Chief Complaint Admit Date Pacer Check Remote August 27, 2024 4:00a m Pacer Check Remote October 12, 2024 2:00 am Pacer Check Remote November 27, 2024 1: 35am Chief Complaint Admit Date Pacer Check Remote October 12, 2024 2:00 am Pacer Check Remote November 27, 2024 1: 35am Annual in-clinic PPM f/u Sees MAT WEAVER @ 9:45 am January 20, 2025 8:52am 1 Y FU PPM f/u @ 9am January 20, 2025 8 :54am Reason for Visit Admit Date Presence of cardiac pacemaker January 8:52am High degree atrioventricular block Octob 2024 8:52am Paroxysmal atrial fibrillation January 202024 8:52am Longstanding persistent atrial fibrillat ion January 20, 2025 8:52am Presence of cardiac pacemaker January 8:54am Bradycardia January 20, 2025 8: 54am Essential (primary) hypertension January 20, 2025 8:54am Hyperlipidemia January 20, 2025 8: 54am Paroxysmal atrial fibrillation January 202024 8:54am Chief Complaint Admit Date Pacer Check Remote November 27, 2024 1: 35am Annual in-clinic PPM f/u Sees MAT WEAVER @ 9:45 am January 20, 2025 8:52am 1 Y FU PPM f/u @ 9am January 20, 2025 8 :54am Pacer Check Remote January 20, 2025 9: 00am Family History No Family History Records Found Relationship Condition Age at Onset Recorded Date/T mago mother Malignant neoplasm Unknown father Cardiac disease Unknown Advance Directives No Advanced Directives Records Found Advance Directive Response Recorded Date/ Time Advance Directives No May 06, 2013 2:15pm Living Will No May 06 2:15pm Power of Supervisor Instrument Maintenance No May 06, 2013 2:15pm Advance Directive Response Recorded Date/ Time Advance Directives No May 06, 2013 1:15pm Living Will No May 06 14 1:15pm Power of Supervisor Instrument Maintenance No May 06, 2013 1:15pm Advance Directive Response Recorded Date/ Time Living Will No May 06 14 2:15pm Do you have a Healthcare Power of Supervisor Instrument Maintenance? No May 06, 2013 2:15pm Advance Directives No January 29, 2024 10:48am Advance Directive Response Recorded Date/ Time Advance Directives No January 29, 2024 10:48am Advance Directive Response Recorded Date/ Time Living Will No May 06 14 2:15pm Do you have a Healthcare Power of Supervisor Instrument Maintenance? No May 06, 2013 2:15pm Living Will No January 28 2:22pm Do you have a Healthcare Power of Supervisor Instrument Maintenance? No January 29, 2024 2:22pm Advance Directives No January 29, 2024 10:48am Summary Purpose Additional Source Comments Goals (unrecognized section and content) Goals may be documented in a n alternate section Care Team (unrecognized sect ion and content) Care Team Personnel Name: DARIN MIKE DO Position: P4 Physician - Primary Care Med Service: Active Provider Member Role: Primary Care Physician Address: Address: [address] [place] [id number]- Care Team Related Persons Name: RUEL BROWN Address: Home [address] [place], [place] [id number] [place] Care Team Personnel Name: DARIN MIKE DO Position: P4 Physician - Primary Care Member Role: Primary Care Physician Address: Address: [address] [place] [id number]- Name: JOVITA MILLAN MD Member Role: Improvement Leader Address: Address: [address] [place] [address] Name: DIONISIO HUTCHISON MD Member Role: Type Proof Reproducer Address: Address: [address] [place] [address]- Name: SYLVESTER CUNHA MD Position: P3 Physician - Urologist Member Role: Urologist Address: Address: [address] [place] [address]- Care Team Related Persons Name: RUEL BROWN Address: Home [address] [place], [place] [id number] Patient Care team informatio n (unrecognized section and content) Team Status: Active Member Role Status Dates Dr. Bell Paige MD Family Provider Active Dr. Darin Mike DO Primary Care Provider Active Team Status: Inactive Member Role Status Dates Dr. Dairn Mike DO Primary Care Provider, Referri ng Provider Active Baylee GARLAND PA Attending Provider Active Team Status: Inactive Member Role Status Dates Dr. Darin Mike DO Primary Care Provider Active Baylee GARLAND PA Attending Provider, Referr ing Provider Active Team Status: Active Member Role Status Dates Dr. Darin Mike DO Primary Care Provider, Attendi ng Provider Active Team Status: Inactive Member Role Status Dates Dr. Darin Mike DO Primary Care Provider Active Dr. Sylvester Cunha MD Attending Provider, Referr ing Provider Active Team Status: Active Member Role Status Dates Dr. Darin Mike DO Primary Care Provider Active Byalee GARLAND PA Attending Provider, Referr ing Provider Active Team Status: Inactive Member Role Status Dates Dr. Darin Mike DO Primary Care Provider Active Start: May 28, 2024 End: May 28, 2024 Dr. Dionisio Hutchison MD Attending Provider Active S tart: May 28, 2024 End: May 28, 2024 Team Status: Inactive Member Role Status Dates Dr. Darin Mike DO Primary Care Provider Active Start: June 13, 2024 End: June 13, 2024 Dr. Darin Mike DO Referring Provider Active Start: June 13, 2024 End: June 13, 2024 Dave Kwon FIXED ASSETS ACCOUNTANT, FIXED ASSETS ACCOUNTANT-C Attending Provider Active S tart: June 13, 2024 End: June 13, 2024 Team Status: Inactive Member Role Status Dates Dr. Darin Mike DO Primary Care Provider Active Start: August 27, 2024 End: August 27, 2024 Dr. Dionisio Hutchison MD Attending Provider Active S tart: August 27, 2024 End: August 27, 2024 Team Status: Active Member Role/Relationship Status Dates Dr. Bell Paige MD Family Provider Active Dr. Darin Mike DO Primary Care Provider Active Team Status: Inactive Member Role/Relationship Status Dates Dr. Darin Mike DO Primary Care Provider Active Start: August 27, 2024 End: August 27, 2024 Dr. Dionisio Hutchison MD Attending Provider Active S tart: August 27, 2024 End: August 27, 2024 Team Status: Inactive Member Role/Relationship Status Dates Dr. Darin Mike DO Primary Care Provider Active Start: October 12, 2024 End: October 12, 2024 Dr. Dionisio Hutchison MD Attending Provider Active S tart: October 12, 2024 End: October 12, 2024 Team Status: Inactive Member Role/Relationship Status Dates Dr. Darin Mike DO Primary Care Provider Active Start: November 27, 2024 End: November 27, 2024 Dr. Dionisio Hutchison MD Attending Provider Active S tart: November 27, 2024 End: November 27, 2024 Team Status: Active Member Role/Relationship Status Dates Dr. Darin Mike DO Primary care physician Active Team Status: Inactive Member Role/Relationship Status Dates Dr. Darin Mike DO Primary care physician Active Start: October 12, 2024 End: October 12, 2024 Dr. Dionisio Hutchison MD Attending physician Active Start: October 12, 2024 End: October 12, 2024 Team Status: Inactive Member Role/Relationship Status Dates Dr. Darin Mike DO Primary care physician Active Start: November 27, 2024 End: November 27, 2024 Dr. Dionisio Hutchison MD Attending physician Active Start: November 27, 2024 End: November 27, 2024 Team Status: Active Member Role/Relationship Status Dates Dr. Darin Mike DO Primary care physician Active Start: January 20, 2025 Dr. Darin Mike DO Referring Provider Active Start: January 20, 2025 Christine Metzger Attending physician Active Start: January 20, 2025 Team Status: Inactive Member Role/Relationship Status Dates Dr. Darin Mike DO Primary care physician Active Start: January 20, 2025 End: January 20, 2025 Dr. Darin Mike DO Referring Provider Active Start: January 20, 2025 End: January 20, 2025 Dr. Dionisio Hutchison MD Attending physician Active Start: January 20, 2025 End: January 20, 2025 Team Status: Inactive Member Role/Relationship Status Dates Dr. Darin Mike DO Primary care physician Active Start: January 20, 2025 End: January 20, 2025 Dr. Darin Mike DO Referring Provider Active Start: January 20, 2025 End: January 20, 2025 Christine Metzger Attending physician Active Start: January 20, 2025 End: January 20, 2025 Team Status: Inactive Member Role/Relationship Status Dates Dr. Darin Mike DO Primary care physician Active Start: November 27, 2024 End: November 27, 2024 Dr. Dionisio Hutchison MD Attending physician Active Start: November 27, 2024 End: November 27, 2024 Team Status: Inactive Member Role/Relationship Status Dates Dr. Darin Mike DO Primary care physician Active Start: January 20, 2025 End: January 20, 2025 Dr. Darin Mike DO Referring Provider Active Start: January 20, 2025 End: January 20, 2025 Dr. Dionisio Hutchison MD Attending physician Active Start: January 20, 2025 End: January 20, 2025 Team Status: Inactive Member Role/Relationship Status Dates Dr. Darin Mike DO Primary care physician Active Start: January 20, 2025 End: January 20, 2025 Dr. Darin Mike DO Referring Provider Active Start: January 20, 2025 End: January 20, 2025 Dr. Dionisio Hutchison MD Attending physician Active Start: January 20, 2025 End: January 20, 2025 Team Status: Inactive Member Role/Relationship Status Dates Dr. Darin Mike DO Primary care physician Active Start: January 20, 2025 End: January 20, 2025 Dr. Dionisio Hutchison MD Attending physician Active Start: January 20, 2025 End: January 20, 2025 (unrecognized sect ion and content) No Status Records FoundNo Status Records FoundNo Status Records Found INFORMATION SOURCE (unrecogn ized section and content) DATE CREATED AUTHOR 11/26/2023 [facility] DATE CREATED AUTHOR AUTHOR'S ORGANIZ ATION 09/14/2024 [facility] DATE CREATED AUTHOR AUTHOR'S ORGANIZ ATION 02/22/2025 [facility] FOR RECORDS PERTAINING TO PATIENTS WHO ARE [...] BE BASED ON THE PRIMARY CLINICAL RECORDS. [employer] [facility]. provides no warranty or guarantee of the accuracy or completeness of information in this document.
== END | disposition home or self-care (01) ==
LOC: CVS 14:44
PROVIDERS: PCP Family Medicine; Referring Provider Internal Medicine Cardiovascular Disease; Visit Provider Internal Medicine Cardiovascular Disease
DX: I48.0 Paroxysmal atrial fibrillation (principal)
CPT/HCPCS: 93306